=== PATIENT | male | born 1935 | race Caucasian/White ===

== ENCOUNTER 2020-09-03 14:57 | Outpatient (CLI) | payer MEDICARE, SELFPAY ==
--- NOTE | ~2020-09-03 | XR_ITS ---
XR chest 2V DATE: 09/03/2020 15:16 INDICATION: Shortness of breath. History of COPD. TECHNIQUE: PA and lateral views COMPARISON: None FINDINGS: Normal heart size. Is aortic calcification, ectasia and unfolding. No hilar or mediastinal enlargement is evident. The lungs are mildly hyperinflated. There is bilateral apical scarring. No pulmonary infiltrate or co nsolidation, pleural effusion or pulmonary vascular congestion or pneumothorax is evident. Diffuse osteopenia. IMPRESSION: Mild bilateral hyperinflation and bilateral apical scarring No apparent active cardiopulmonary disease Diffuse osteopenia Reviewed, dictated and finalized at location B. [employer]
== END 2020-09-03 14:58 | disposition home or self-care (01) ==
PROVIDERS: PCP Family Medicine; Visit Provider Family Medicine
DX: R06.02 Shortness of breath (principal); R91.8 Other nonspecific abnormal finding of lung field; M85.89 Other specified disorders of bone density and structure, multiple sites
CPT/HCPCS: 71046

== ENCOUNTER 2020-10-25 01:00 | Emergency (ER) | payer MEDICARE, OTHER, SELFPAY ==
--- NOTE | ~2020-10-25 | CT_ITS ---
EXAMINATION: CT abdomen pelvis w con INDICATION: Abdominal pain TECHNIQUE: Computed tomographic images of the abdomen and pelvis were obtained after the administrati on of 100 cc of Omnipaque 350 intravenous contrast. The dose-length product (DLP) was 525.32 mGy-cm. Automated exposure control and iterative reconstruction technique were employed. COMPARISON: None available FINDINGS: Minimal dependent atelectasis is present in the lung bases. The heart size is normal. Punct ate calcifications in an otherwise normal spleen likely represent healed granulomatous disease. The l iver, pancreas, gallbladder, and adrenal glands are normal. The right kidney is unremarkable. There i s moderate left hydroureteronephrosis with urothelial enhancement of the ureter and renal pelvis. A F oley catheter is present in the decompressed bladder. There is diffuse wall thickening of the urinary bladder. A small amount of gas in the nondependent portion of the bladder is likely related to Sr catheter insertion. No pathologically enlarged abdominal or pelvic lymph nodes are identified. There is no free intraperitoneal gas or evidence of bowel obstruction. There is calcified atherosclerosis of the aorta and many of the other arteries. There is severe lumbar spondylosis. IMPRESSION: 1. Wall thickening of the urinary bladder with urothelial enhancement of the ureter and renal pelvis, findings likely reflect urinary tract infection. 2. Moderate left hydroureteronephrosis of unclear etiology. Reviewed, dictated and finalized at location B. IMPRESSION: 1. Wall thickening of the urinary bladder with urothelial enhancement of the ur eter and renal pelvis, findings likely reflect urinary tract infection. 2. Moderate left hydroureteronephrosis of unclear etiology.
[2020-10-25 01:02] VITALS: BP 199/67; PULSE 98; RESP 20; TEMP 37.1; O2SAT 97
--- NOTE | 2020-10-25 01:37 | ED.GENADULT ---
HPI - General Adult General Chief complaint: Urogenital-Male Stated complaint: Hematuria, catheter problems Time Seen by Provider: 10/25/20 01:18 Source: RN notes reviewed History of Present Illness HPI narrative: Patient presents to emergency department from home for hematuria. Patient states he has a indwelling Sr catheter that is managed by Dr. Rome States for the past 2 days he has been having intermittent blood come around his catheter. States that starting yesterday started to have low back pain and this evening he had pain in his left lower back and left lower abdomen described as sharp and stabbing states that the bleeding does improve when he drinks water he denies any fevers or chills chest pain shortness of breath nausea vomiting or any other symptoms Related Data Home Medications Medication Instructions Recorded Confirmed budesonide-formoterol HFA 80 2 puff INHALATION Q12H 06/23/19 10/08/20 mcg-4.5 mcg/actuation aerosol inhaler cyanocobalamin (vitamin B-12) 500 500 mcg PO DAILY 06/23/19 10/08/20 mcg tablet losartan 25 mg tablet 25 mg PO BID 06/23/19 10/08/20 multivitamin 1 tablet PO DAILY 06/23/19 10/08/20 terazosin 10 mg capsule 10 mg PO DAILY 06/23/19 10/08/20 vit C 250 mg-vit E 200 unit-zinc cap PO 09/03/20 10/08/20 ox 12.5 ld-klrahk-pczjbw-zeax capsule Allergies Allergy/AdvReac Type Severity Reaction Status Date / Time No Known Allergies Allergy Unverified 10/08/20 12:58 Review of Systems Review of Systems: Narrative: Gen.: Denies fevers or chills ENT: Denies congestion Respiratory: Denies shortness of breath or cough CV: Denies chest pain or palpitations GI: Reports lower abdominal pain left flank pain see HPI Musculoskeletal: Denies muscle pain Neuro: Denies numbness, tingling, weakness or focal weakness Skin: Denies rash Except as documented, all other systems reviewed and negative [facility] Past Medical History Medical History (Updated 10/25/20 @ 04:08 by Jim Villegas DO) BPH loc w urin obs/LUTS Carotid artery bruit Chronic hypertension COPD (chronic obstructive pulmonary disease) SHARON (generalized anxiety disorder) [place] (hard of hearing) Uses hearing aid Surgical History Surgical History History of cataract surgery Family History Family History Sibling Diabetes mellitus Mother Family history of malignant neoplasm Social History Social History Social History: Smoking status: Never smoker Second hand tobacco smoke exposure: No Alcohol intake: never Substance use: never Substance use type: does not use Gender identity (if verbalized by the patient): Male Exam Narrative: Exam Narrative: APPEARANCE: No acute distress, nontoxic, resting in bed EYES: EOMI HEENT: Normocephalic, atraumatic, OMM RESPIRATORY: No respiratory distress Clear to auscultation bilaterally with no rhonchi wheezing or rales. CARDIOVASCULAR: Regular rate and rhythm without murmurs rubs or gallops. ABDOMINAL: Soft, nondistended tender palpation left lower quadrant right lower quadrant no tenderness left upper quadrant and right upper quadrant, left flank tenderness : Sr catheter present with blood around the Sr catheter at the meatus MUSCULOSKELETAl: Moves all extremities. No clubbing, cyanosis or edema. NEURO: Awake and alert. Following commands, speech normal, no focal deficits SKIN:: Warm, dry. No rashes lesions or abrasions PSYCHIATRIC: Normal affect/mood, Course Course Emergency Course: Called and discussed with Dr. Conroy for urology presentation work-up at this time agrees with plan for discharge with patient to be started on Bactrim follow-up with Dr. Wei severino with outpatient Patient Sr catheter was flushed by nursing staff in ED with no difficulties with clear urine Discussed
[2020-10-25 01:38] LABS: Basophils Percent Auto 0.3 % (0.2-1.2); Eosinophils Absolute Auto 0.1 K/mm3 (0-0.3); Eosinophils Percent Auto 0.7 % (0-4.4); Hematocrit 38.5 % (42.0-52.0); Hemoglobin 12.8 g/dL (14.0-18.0); Immature Granulocyte Absolute 0.08 K/mm3 (0.00-0.031); Immature Granulocyte Percent A 0.6 % (0-0.5); Lymphocytes Absolute Auto 1.31 K/mm3 (0.9-3.2); Lymphocytes Percent Auto 10.5 % (18.3-44.2); Mean Corpuscular HGB Conc 33.2 g/dl (32-36); Mean Corpuscular Hemoglobin 29.4 pg (26-34); Mean Corpuscular Volume 88.5 fl (80-100); Mean Platelet Volume 9.6 fl (7.4-10.4); Monocytes Absolute Auto 0.9 K/mm3 (0.1-0.6); Monocytes Percent Auto 6.9 % (2.6-8.5); Neutrophils Absolute Auto 10.2 K/mm3 (1.3-6.7); Platelet Count Result 190 k/mm3 (150-375); Red Blood Count 4.35 M/mm3 (4.6-6.20); White Blood Count 12.5 K/mm3 (4.5-10.0)
[2020-10-25 01:51] LABS: Alanine Aminotransferase 12 U/L (4-50); Albumin Level 4.2 g/dL (3.5-5.1); Alkaline Phosphatase 105 U/L (38-126); Anion Gap 7 mmol/L (8-16); Aspartate Amino Transferase 17 U/L (17-59); Bilirubin,Total 0.7 mg/dL (0.2-1.3); Blood Urea Nitrogen 16 mg/dL (9-20); Carbon Dioxide 28 mmol/L (22-30); Chloride 99 mmol/L (98-107); Estimated Glomerular Filt Rate > 60; Glucose 111 mg/dL (75-110); Potassium 4.2 mmol/L (3.4-5.0); Sodium 134 mmol/L (137-145)
[2020-10-25 01:59] LABS: Prothrombin Time 13.8 Seconds (11.1-14.7)
[2020-10-25 02:01] LABS: Partial Thromboplastin Time 34.1 SECONDS (22.3-36.8)
[2020-10-25 02:08] LABS: Add Urine Microscopic? YES; Appearance Urine Cloudy (Clear); Bacteria Urine Trace /hpf; Bilirubin Urine Negative (Negative); Blood Urine 3+ (Negative); Color Urine Straw (Yellow); Glucose Urine UA Negative (Negative); Ketones Urine Negative (Negative); Leukocyte Esterase Ur 3+ LEU/UL (Negative); Mucus Urine Rare /lpf; Nitrate Urine Negative (Negative); Protein Urine 2+ mg/dL (Negative); Urobilinogen Urine Negative mg/dL (<2.0); WBC Urine >75 /hpf
[2020-10-25 02:15] LABS: Specific Grav Ur 1.002 (1.001-1.035)
[2020-10-25 03:09] VITALS: BP 165/72; PULSE 82; RESP 16; O2SAT 93
[2020-10-25 03:33] VITALS: BP 160/60; PULSE 83; RESP 16; O2SAT 92
[2020-10-25 03:48] LABS: Lactic Acid Reflex 0.7 mmol/L (0.7-2.1)
--- NOTE | 2020-10-25 04:07 | PC.NURSE ---
When cath was irrigated (earlier in shift), no difficulties. Easily flushed. No clots.
[2020-10-25 04:40] VITALS: BP 164/68; PULSE 80; RESP 16; O2SAT 93
== END 2020-10-25 04:40 | disposition home or self-care (01) ==
PROVIDERS: Emergency Provider Emergency Medicine; PCP Family Medicine
DX: N39.0 Urinary tract infection, site not specified (principal); R31.9 Hematuria, unspecified; N40.1 Benign prostatic hyperplasia with lower urinary tract symptoms; I10 Essential (primary) hypertension; J44.9 Chronic obstructive pulmonary disease, unspecified; Z98.49 Cataract extraction status, unspecified eye; N13.30 Unspecified hydronephrosis
CPT/HCPCS: 36415; 74177; 80053; 81001; 83605; 85025; 85610; 85730; 86850; 86900; 86901; 87040; 87086; 87088; 96365; 99284; J0696; Q9967

== ENCOUNTER 2021-10-21 15:18 | Outpatient (CLI) | payer MEDICARE, OTHER, SELFPAY ==
--- NOTE | ~2021-10-21 | XR_ITS ---
XR chest 2V DATE: 10/21/2021 15:34 INDICATION: Cough. Sinus issues for one week. History of COPD. TECHNIQUE: PA and lateral views COMPARISON: September 03, 2020 PA and lateral chest FINDINGS: Normal heart size. There is aortic calcification, ectasia and unfolding. No hilar or medias tinal enlargement. Bilateral hyperinflation suggesting COPD. The elderly chest can simulate this appearance. Clinical co rrelation is advised. There is mild bilateral apical scarring. No active pulmonary infiltrate or consolidation, pleural eff usion or pulmonary vascular congestion or pneumothorax is detected. Diffuse osteopenia. Degenerative changes of the cervical and thoracic spine. IMPRESSION: No active cardiac pulmonary disease Aortic atherosclerosis Diffuse osteopenia Reviewed, dictated and finalized at location A.
== END 2021-10-21 15:19 | disposition home or self-care (01) ==
LOC: ANHIMG 15:21
PROVIDERS: PCP Family Medicine; Visit Provider Nurse Practitioner Gerontology
DX: R05.9 Cough, unspecified (principal); I70.0 Atherosclerosis of aorta; M47.813 Spondylosis without myelopathy or radiculopathy, cervicothoracic region
CPT/HCPCS: 71046

== ENCOUNTER 2021-10-31 14:17 | Observation (INO) | payer MEDICARE, OTHER, SELFPAY ==
[2021-10-31] VITALS (28 sets, daily range): BP systolic 163–242; BP diastolic 61–93; PULSE 78–108; RESP 15–26; TEMP 36.2–36.8; O2SAT 95–99; BMI 23.1
--- NOTE | ~2021-10-31 | XR_ITS ---
EXAMINATION: XR chest 2V DATE: 10/31/2021 15:54 INDICATION: Palpitations TECHNIQUE: PA and lateral views of the chest were obtained. COMPARISON: Chest radiograph dated 10/21/21 and 09/03/2020 FINDINGS: Chronic biapical pleural-parenchymal scarring. No new airspace opacities, pulmonary edema, pleural ef fusion or pneumothorax. The cardiomediastinal silhouette is normal. Calcified splenic nodule consiste nt with old granulomatous disease. Chronic mild anterior wedging at T8. IMPRESSION: 1. Biapical pleural-parenchymal scarring. No acute cardiopulmonary disease. Reviewed, dictated and finalized at location A.
--- NOTE | 2021-10-31 14:23 | ECG_ITS ---
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
[2021-10-31 15:35] LABS: Basophils Percent Auto 0.3 % (0.2-1.2); Hematocrit 42.9 % (42.0-52.0); Hemoglobin 14.1 g/dL (14.0-18.0); Immature Granulocyte Absolute 0.18 K/mm3 (0.00-0.031); Immature Granulocyte Percent A 1.9 % (0-0.5); Lymphocytes Absolute Auto 0.98 K/mm3 (0.9-3.2); Lymphocytes Percent Auto 10.3 % (18.3-44.2); Mean Corpuscular HGB Conc 32.9 g/dl (32-36); Mean Corpuscular Hemoglobin 29.6 pg (26-34); Mean Corpuscular Volume 89.9 fl (80-100); Mean Platelet Volume 9.8 fl (7.4-10.4); Monocytes Absolute Auto 0.5 K/mm3 (0.1-0.6); Neutrophils Absolute Auto 7.8 K/mm3 (1.3-6.7); Neutrophils Percent Auto 82.5 % (45.5-73.1); Platelet Count Result 186 k/mm3 (150-375); Red Blood Count 4.77 M/mm3 (4.6-6.20); Red Cell Distribution Width 13.2 % (11.5-14.5); White Blood Count 9.5 K/mm3 (4.5-10.0)
[2021-10-31 15:47] LABS: INR 1.1; Prothrombin Time 13.3 Seconds (11.1-14.7)
[2021-10-31 15:48] LABS: Partial Thromboplastin Time 30.2 SECONDS (22.3-36.8)
[2021-10-31 15:50] LABS: Alanine Aminotransferase 15 U/L (4-50); Albumin Level 3.9 g/dL (3.5-5.1); Alkaline Phosphatase 101 U/L (38-126); Anion Gap 5 mmol/L (8-16); Aspartate Amino Transferase 20 U/L (17-59); Bilirubin,Total 0.3 mg/dL (0.2-1.3); Blood Urea Nitrogen 20 mg/dL (9-20); Calcium 8.7 mg/dL (8.4-10.2); Carbon Dioxide 29 mmol/L (22-30); Chloride 101 mmol/L (98-107); Estimated CRCL calculation 72 ml/min; Estimated Glomerular Filt Rate > 60; Glucose 112 mg/dL (65-110); Sodium 135 mmol/L (137-145)
[2021-10-31] MEDS: hydrALAZINE HCL 25 MG TABLET PO ×2 (15:54→21:19)
[2021-10-31 16:00] LABS: NT Pro B Type Natriuretic Pept 574 pg/mL (5-100); Troponin I < 0.012 ng/mL (0.000-0.034)
--- NOTE | 2021-10-31 17:30 | PM.IMHP ---
H&P: HPI History of Present Illness Date/Time: 10/31/21 17:30 Chief Complaint: New onset SVT Narrative: Patient is an 86-year-old male with a past medical history of BPH, hypertension, COPD who presented to the ED from the doctor's office with a heart rate greater than 180. Patient's girlfriend said that the patient's heart rate was high and it did come down to about 178. The physician told the patient come down to the ED and rolled him down here. Patient did state that he had some palpitations however he did not have any chest pain, shortness of breath, nausea, vomiting, sweats, fevers, chills, lightheadedness, dizziness, weakness or fatigue. His girlfriend says that his legs have been a little bit more swollen than normal lately. Blood pressure is high 200s over 100s. It does seem that he is taking his blood pressure medications appropriately. Currently heart rates in the 80s to 90s. Chest x-ray did shows no acute abnormality. Patient is being admitted to the hospitalist service under observation Review of Systems Review of Systems: All systems reviewed & are unremarkable except as noted in HPI and below PMFSH Past Medical History Medical History Allergies Anemia Atonic bladder Benign essential HTN BPH loc w urin obs/LUTS Carotid artery bruit Chronic hypertension COPD (chronic obstructive pulmonary disease) SHARON (generalized anxiety disorder) [place] (hard of hearing) Uses hearing aid Surgical History Surgical History History of cataract surgery Family History Family History Sibling Diabetes mellitus Mother Family history of malignant neoplasm Social History Social History (Updated 10/31/21 @ 19:37 by DUNG Maravilla) Social History: Lives with girlfriend Zahida Kruse who will be his surrogate. They have one cat, and no cats. He is wanting a to be full code at this time. He is very hard of hearing. 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 Gender identity (if verbalized by the patient): Male Sexual Orientation (if Verbalized by the Patient): Straight or Heterosexual Spiritual care concerns: No Agree to blood products: Yes Meds Home Medications and Allergies Home Medications Medication Instructions Recorded Confirmed Type cyanocobalamin (vitamin B-12) 500 500 mcg PO DAILY 06/23/19 10/31/21 History mcg tablet finasteride 5 mg tablet 5 mg PO DAILY 11/05/20 10/31/21 History tamsulosin 0.4 mg capsule 0.4 mg PO DAILY 11/05/20 10/31/21 History hydralazine 25 mg tablet 25 mg PO TID #270 tablet 05/26/21 10/31/21 Rx polysaccharide iron complex 150 mg 150 mg PO DAILY #30 cap 07/06/21 10/31/21 Rx iron capsule losartan 50 mg PO DAILY 10/31/21 10/31/21 History Allergies Allergy/AdvReac Type Severity Reaction Status Date / Time prednisone AdvReac Severe tachycardia Verified 10/31/21 13:53 Vital Signs Vital Signs - 24 hr 10/31/21 14:19 10/31/21 14:56 10/31/21 15:00 Temperature 98.2 F Pulse Rate 108 H 96 92 Respiratory Rate 18 21 H 16 Blood Pressure 242/93 H Pulse Oximetry 98 98 98 10/31/21 15:01 10/31/21 15:22 10/31/21 15:30 Temperature Pulse Rate 94 91 91 Respiratory Rate 18 18 18 Blood Pressure 207/73 H Pulse Oximetry 97 97 10/31/21 15:31 10/31/21 15:45 10/31/21 15:46 Temperature Pulse Rate 90 91 Respiratory Rate 20 19 Blood Pressure 207/77 H 195/86 H Pulse Oximetry 97 98 10/31/21 15:56 10/31/21 16:00 10/31/21 16:01 Temperatu
--- NOTE | 2021-10-31 17:50 | ED.GENADULT ---
HPI - General Adult General Chief complaint: Arrhythmia/Palpitations Stated complaint: tachycardia Time Seen by Provider: 10/31/21 14:57 History of Present Illness HPI narrative: Patient is an 86-year-old male who presents ER from his primary care office. He was found there that his heart rate was in the 170s 180s. He reports some lightheadedness and feeling palpitations so he was sent down here. Patient is very hard of hearing. Upon arrival here his heart rate is tachycardic but in the low 100s. He is denying any chest pain or pressure. No weakness or fatigue. Reports compliance with home medications. Was found that his blood pressure significantly elevated in the 200s. Related Data Home Medications Medication Instructions Recorded Confirmed finasteride 5 mg tablet 5 mg PO DAILY 11/05/20 10/31/21 tamsulosin 0.4 mg capsule 0.4 mg PO HS 11/05/20 10/31/21 cyanocobalamin (vitamin B-12) 1,000 mcg PO DAILY 10/31/21 10/31/21 [Vitamin B-12] losartan 50 mg PO DAILY 10/31/21 10/31/21 omega-3 fatty acids 1,000 mg PO HS 10/31/21 10/31/21 Allergies Allergy/AdvReac Type Severity Reaction Status Date / Time prednisone AdvReac Severe tachycardia Verified 11/02/21 02:17 Review of Systems Review of Systems: All systems reviewed & are unremarkable except as noted in HPI and below Constitutional: Constitutional: Denies chills, Denies fever(s) and Denies weakness Cardiovascular: Cardiovascular: Denies chest pain, Reports rapid heart rate and Denies radiating jaw, neck or arm pain Respiratory: Respiratory: Denies cough, Denies dyspnea and Denies wheezing Gastrointestinal: Gastrointestinal: Denies abdominal pain, Denies nausea and Denies vomiting Neurologic: Reports dizziness, Denies headache(s), Denies focal weakness and Denies numbness PMFSH Past Medical History Medical History Allergies Anemia Atonic bladder Benign essential HTN BPH loc w urin obs/LUTS Carotid artery bruit Chronic hypertension COPD (chronic obstructive pulmonary disease) SHARON (generalized anxiety disorder) [place] (hard of hearing) Uses hearing aid Surgical History Surgical History History of cataract surgery Family History Family History Sibling Diabetes mellitus Lupus Mother Colon cancer metastasized to brain Family history of malignant neoplasm Sibling Diabetes mellitus Scleroderma Sibling Diabetes mellitus Father Leukemia Social History Social History (Updated 10/31/21 @ 19:37 by DUNG Maravilla) Social History: Lives with girlfriend Zahida Kruse who will be his surrogate. They have one cat, and no cats. He is wanting a to be full code at this time. He is very hard of hearing. 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 Gender identity (if verbalized by the patient): Male Sexual Orientation (if Verbalized by the Patient): Straight or Heterosexual Spiritual care concerns: No Agree to blood products: Yes Exam Narrative: GENERAL: Well-appearing, well-nourished, and in no acute distress. HEAD: Normocephalic, atraumatic. EYES: PERRL and EOMI. ENT: Mucous membranes moist. CHEST: Clear to auscultation. No respiratory distress. HEART: Tachycardic regular.. Normal peripheral pulses. ABDOMEN: Soft, nontender, nondistended. EXTREMITIES: Normal range of motion. No edema. SKIN: Warm, dry, no rash. NEURO: Alert and oriented x3. PSYCH: N
[2021-10-31] MEDS: hydrALAZINE HCL 20 MG/ML VIAL 10 MG IV PUSH (19:25)
--- NOTE | 2021-10-31 19:37 | PC.NURSE ---
Attempted to give report to IMU at this time. Receiving RN is busy, will call back when available.
--- NOTE | 2021-10-31 20:08 | ADMGEN ---
This patient, Aric Burch, was admitted to IMU Room 214-01 on 10/31/21 at 2004. Patient/family oriented to hospital policies and general routines including ID bracelet, bed and alarms, visiting hours, pain management, procedures, bathroom and other care routines, personal items, smoking policy, room service/diet, and visiting hours. Information on how to activate the Rapid Response Team has been discussed. Patient/Family are encouraged to report perceived risks to care and to ask questions if they do not understand what they are told or what they should do.
[2021-10-31 20:38] LABS: Basophils Percent Auto 0.3 % (0.2-1.2); Eosinophils Percent Auto 0.3 % (0-4.4); Hematocrit 43.6 % (42.0-52.0); Hemoglobin 14.3 g/dL (14.0-18.0); Immature Granulocyte Absolute 0.21 K/mm3 (0.00-0.031); Immature Granulocyte Percent A 1.8 % (0-0.5); Lymphocytes Absolute Auto 2.16 K/mm3 (0.9-3.2); Lymphocytes Percent Auto 18.3 % (18.3-44.2); Mean Corpuscular HGB Conc 32.8 g/dl (32-36); Mean Corpuscular Volume 88.4 fl (80-100); Mean Platelet Volume 9.8 fl (7.4-10.4); Monocytes Absolute Auto 0.7 K/mm3 (0.1-0.6); Neutrophils Absolute Auto 8.6 K/mm3 (1.3-6.7); Neutrophils Percent Auto 73.3 % (45.5-73.1); Platelet Count Result 200 k/mm3 (150-375); Red Blood Count 4.93 M/mm3 (4.6-6.20); Red Cell Distribution Width 13.3 % (11.5-14.5); White Blood Count 11.8 K/mm3 (4.5-10.0)
[2021-10-31 20:53] LABS: Alanine Aminotransferase 15 U/L (4-50); Alkaline Phosphatase 99 U/L (38-126); Anion Gap 6 mmol/L (8-16); Aspartate Amino Transferase 20 U/L (17-59); Bilirubin,Total 0.7 mg/dL (0.2-1.3); Blood Urea Nitrogen 17 mg/dL (9-20); Calcium 8.8 mg/dL (8.4-10.2); Carbon Dioxide 28 mmol/L (22-30); Chloride 103 mmol/L (98-107); Estimated CRCL calculation 72 ml/min; Estimated Glomerular Filt Rate > 60; Glucose 102 mg/dL (65-110); Magnesium 2.1 mg/dL (1.6-2.3); Potassium 3.5 mmol/L (3.4-5.0); Sodium 137 mmol/L (137-145)
[2021-10-31] MEDS: LOSARTAN POTASSIUM 50 MG TABLET PO (21:19)
[2021-10-31] MEDS: TAMSULOSIN HCL 0.4 MG CAPSULE PO (21:57)
[2021-10-31] MEDS: HYDROcodone/acetaminophen (*CRX) 5-325 MG TABLET 1 TAB PO (22:42)
[2021-11-01] VITALS (9 sets, daily range): BP systolic 158–179; BP diastolic 62–67; PULSE 77–96; RESP 12–18; TEMP 36.4–36.6; O2SAT 95–100
--- NOTE | 2021-11-01 | ECHO_ITS ---
Patient Info Name: Aric Burch Age: 86 years : 1935 Gender: Male Ht: 73 in Wt: 175 lbs BSA: 2.02 m2 HR: 77 bpm BP: 179 / 67 mmHg Heart Rhythm: Sinus Rhythm Technical Quality: Fair Exam Date: 11/01/2021 11:20 AM Exam Location: [facility] Patient Status: Outpatient Admit Date: 10/31/2021 Staff Ordering Physician: Otis Wang Lime Mixer: Tamar Christian RDCS Attending Provider: Rosa Washington MD Referring Physician: Felipe OLSON; Exam Type: CA echo doppler color flow Study Info Indications - SVT Complete two-dimensional, color flow and Doppler transthoracic echocardiogram is performed. Summary 1. Complete two-dimensional, color flow and Doppler transthoracic echocardiogram is performed. 2. Left ventricular chamber dimension is mildly enlarged. 3. Left ventricular systolic function is normal, estimated at 65-70%. 4. There is no increased left ventricular wall thickness. 5. The left ventricular diastolic function is grade I diastolic dysfunction. 6. There is no mitral valve regurgitation. 7. There is no aortic valve stenosis. 8. The aortic root size at the sinus of Valsalva is moderately dilated at 4.3-4.5cm. Consider CT chest if clinically indicated.. 9. The prox ascending aorta size is mildly dilated at 4.0cm. Left Ventricle Left ventricular chamber dimension is mildly enlarged. Left ventricular systolic function is normal, estimated at 65-70%. There is no increased left ventricular wall thickness. The left ventricular diastolic function is grade I diastolic dysfunction. Right Ventricle Right ventricular chamber dimension is normal. Right ventricular systolic function is normal. Left Atria Left atrial chamber dimension is normal. Right Atria Right atrial chamber dimension is normal. Aortic Valve The aortic valve is trileaflet. There is no aortic valve stenosis. There is trace aortic valve regurgitation. Pulmonic Valve The pulmonic valve is not well visualized. Mitral Valve The mitral valve has normal leaflets. There is no mitral valve regurgitation. The mitral valve annulus is mildly calcified. Tricuspid Valve The tricuspid valve leaflets are normal. There is trace tricuspid valve regurgitation. No pulmonary hypertension, estimated pulmonary arterial systolic pressure is 15 mmHg. Pericardium/Pleural The pericardium appears epicardial fat pad. There is trivial pericardial effusion. Inferior Vena Cava Normal inferior vena cava with >50% collapse upon inspiration consistent with normal right atrial pressure, 5 mmHg. Aorta The aortic root size at the sinus of Valsalva is moderately dilated at 4.3-4.5cm. Consider CT chest if clinically indicated.. The prox ascending aorta size is mildly dilated at 4.0cm. There is mild aortic atherosclerosis. Left Ventricular Outflow Tract Name Value Normal LVOT 2D LVOT Diameter 2.1 cm LVOT Doppler LVOT Peak Gradient 13 mmHg LVOT Mean Gradient 6 mmHg LVOT VTI 30 cm LVOT VTI/AV VTI Ratio
[2021-11-01] MEDS: ACETAMINOPHEN 325 MG TABLET 650 MG PO (00:34)
[2021-11-01] MEDS: PHENAZOPYRIDINE HCL 100 MG TABLET 200 MG PO ×3 (02:13→13:26)
[2021-11-01] MEDS: hydrALAZINE HCL 25 MG TABLET PO ×2 (05:57→13:27)
[2021-11-01] MEDS: FINASTERIDE 5 MG TABLET PO (08:44)
[2021-11-01] MEDS: CYANOCOBALAMIN 500 MCG TABLET PO (08:44)
[2021-11-01] MEDS: ENOXAPARIN 40 MG/0.4 ML SYRINGE SUB-Q (08:44)
[2021-11-01] MEDS: POLYSACCHARIDE IRON COMPLEX 150 MG CAPSULE PO (08:45)
[2021-11-01] MEDS: LOSARTAN POTASSIUM 50 MG TABLET PO (08:45)
[2021-11-01] MEDS: amLODIPine BESYLATE 5 MG TABLET 10 MG PO (09:40)
--- NOTE | 2021-11-01 14:00 | PM.DS ---
DS: Admitting Diagnosis Discharge Date 11/01/21 1400 Admitting Diagnosis SVT tachycardia DS: Discharge Diagnosis Discharge Diagnosis (1) Tachycardia: Code(s): R00.0 - Tachycardia, unspecified Status: Acute Assessment and Plan: Heart rate noted to be greater than 170 at the doctor's office EKG shows ST Currently 90-110 Spontaneously resolved Tele monitor Denies symptoms (2) Hypertensive urgency: Code(s): I16.0 - Hypertensive urgency Status: Acute Assessment and Plan: Blood pressure 200/100s Continue home hydralazine, losartan Added some amlodipine Trend blood pressure Hydralazine IV p.r.n. 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 Trend urine output DS: Summary Hospital Course Hospital Course: Patient is an 86-year-old male with a past medical history of BPH, anemia, hypertension, COPD who presented to the ED from the doctor's office with complaints SVT. Patient was noted to have a heart rate greater than 170 which he sustained. Patient presented the ED and heart rate was down in the 90s. EKG was taken and showed the patient was sinus tachycardia in the 100s. Labs drawn in looked normal including a TSH of 2.170. Potassium was also normal limits of 3.5 and magnesium of 2.1. Echocardiogram was done which showed an EF of 65-70% and grade 1 diastolic dysfunction. Patient no complaints to company his tachycardia including chest pain, shortness of breath, dizziness, nausea, sweats. Patient is ready to go and is stable for discharge with vital signs and lab work. At time of discharge, it was noted that the patient had hematuria. Patient stated that he was also having some pain, but the straight caths here are bigger than he is used to. He stated that he feels he might of nicked himself when he straight cathed the last time. Urology was contacted and was instructed to place caba catheter, and have the patient follow up with urology. Appointment was made and given to the patient. It was also stated that the urinary catheter would help to confine the bleed and help with cauterizing the bleeding. This was explained to the patient and he will follow up. Was contacted by the nurse that she placed the caba and right after took his blood pressure which was elevated, however, feel this was mostly due to the trauma of the catheter and the patient has a known anxiety. Instructed the patient to trend his blood pressure and report findings to his PCP. Also ordered a 30 day event monitor, and tried to get the primary care provider a message about referral to a case finisher. However, it was said that the hospital will need to call the number on the back of the card for approval. I tried to re-explain, but once again the they did not understand. Instructed the patient to make an appointment and have them refer him to a case finisher. Status at Discharge Functional status at discharge: independent ambulation Overall status at discharge: patient is progressing back to baseline Time Spent with Patient Time attestation: Total time spent providing and/or coordinating discharge services: 48 minutes Time spent: Greater than 30 minutes Specific discharge activities: Diagnostic testing, chart review, developing a treatment plan, education, care coordination documentation, physical exam, result review Exam Const: General: cooperative, no acute distress, well developed, alert and awake Nutritional Appearance: well nourished Orientation/consciousness: oriented to person, oriented to place, oriented to time and patient oriented x3 Limitations: other limitations (very [place]) HENMT: Head: normal to inspection Ears: hearing grossly normal bilaterally General nose exam: Normal ex
== END 2021-11-01 17:14 | disposition home or self-care (01) ==
LOC: ANHED 15:58 → ANHIMU 19:58
PROVIDERS: Admitting Provider Family Medicine; Emergency Provider Emergency Medicine; PCP Family Medicine; Visit Provider Nurse Practitioner
DX: I47.1 Supraventricular tachycardia (principal); I16.0 Hypertensive urgency; N40.1 Benign prostatic hyperplasia with lower urinary tract symptoms; N31.2 Flaccid neuropathic bladder, not elsewhere classified; N13.9 Obstructive and reflux uropathy, unspecified; I10 Essential (primary) hypertension; D64.9 Anemia, unspecified; H91.90 Unspecified hearing loss, unspecified ear; J44.9 Chronic obstructive pulmonary disease, unspecified; R31.9 Hematuria, unspecified
CPT/HCPCS: 36415; 71046; 80053; 81001; 83735; 83880; 84443; 84484; 85025; 85610; 85730; 87077; 87086; 87088; 87186; 93005; 93306; 96365; 96372; 96374; 99284; 99285; A9270; G0378; J0360; J0696; J1650

== ENCOUNTER 2021-11-01 23:03 | Emergency (ER) | payer MEDICARE, OTHER, SELFPAY ==
[2021-11-01 23:07] VITALS: BP 148/52; PULSE 105; RESP 20; TEMP 36.3; O2SAT 97
[2021-11-01 23:30] LABS: RBC Urine >75 /hpf (0-2); WBC Urine >75 /hpf
[2021-11-01 23:48] LABS: Add Urine Microscopic? YES; Appearance Urine Turbid (Clear); Bilirubin Urine 1+ (Negative); Blood Urine 3+ (Negative); Color Urine Orange (Yellow); Glucose Urine UA Trace mg/dL (Negative); Ketones Urine Trace mg/dL (Negative); Leukocyte Esterase Ur 3+ LEU/UL (Negative); Nitrate Urine Positive (Negative); Protein Urine 3+ mg/dL (Negative)
[2021-11-02 03:07] LABS: Basophils Percent Auto 0.2 % (0.2-1.2); Eosinophils Percent Auto 0.2 % (0-4.4); Hematocrit 41.6 % (42.0-52.0); Hemoglobin 13.5 g/dL (14.0-18.0); Immature Granulocyte Absolute 0.15 K/mm3 (0.00-0.031); Immature Granulocyte Percent A 1.2 % (0-0.5); Lymphocytes Absolute Auto 1.51 K/mm3 (0.9-3.2); Mean Corpuscular HGB Conc 32.5 g/dl (32-36); Mean Corpuscular Hemoglobin 29.7 pg (26-34); Mean Corpuscular Volume 91.4 fl (80-100); Mean Platelet Volume 9.9 fl (7.4-10.4); Monocytes Absolute Auto 0.8 K/mm3 (0.1-0.6); Monocytes Percent Auto 6.6 % (2.6-8.5); Neutrophils Absolute Auto 10.1 K/mm3 (1.3-6.7); Neutrophils Percent Auto 79.8 % (45.5-73.1); Platelet Count Result 204 k/mm3 (150-375); Red Blood Count 4.55 M/mm3 (4.6-6.20); Red Cell Distribution Width 13.8 % (11.5-14.5); White Blood Count 12.6 K/mm3 (4.5-10.0)
--- NOTE | 2021-11-02 03:08 | ED.GENADULT ---
HPI - General Adult General Chief complaint: Urogenital-Male Stated complaint: hematuria Time Seen by Provider: 11/02/21 02:19 Source: patient, family, RN notes reviewed and old records reviewed Limitations: no limitations History of Present Illness HPI narrative: 86-year-old male presented to the emergency department for evaluation of hematuria. Patient had a recent hospitalization for hypertensive urgency. Patient does straight cath as needed. Prior to discharge patient noticed he had some hematuria which was thought to be secondary to an injury while straight cathing. Patient states that he had some worsening hematuria at home so he presented to the emergency department for evaluation. Patient denies any pain at this time. Related Data Home Medications Medication Instructions Recorded Confirmed finasteride 5 mg tablet 5 mg PO DAILY 11/05/20 10/31/21 tamsulosin 0.4 mg capsule 0.4 mg PO HS 11/05/20 10/31/21 cyanocobalamin (vitamin B-12) 1,000 mcg PO DAILY 10/31/21 10/31/21 [Vitamin B-12] losartan 50 mg PO DAILY 10/31/21 10/31/21 omega-3 fatty acids 1,000 mg PO HS 10/31/21 10/31/21 Allergies Allergy/AdvReac Type Severity Reaction Status Date / Time prednisone AdvReac Severe tachycardia Verified 11/02/21 02:17 Review of Systems Review of Systems: CONSTITUTIONAL: Denies fever, chills, or sweats. EYES: Denies visual changes, redness, or discharge. ENT: Denies rhinorrhea, congestion, sore throat, or otalgia. CARDIOVASCULAR: Denies chest pain, palpitations, or edema. RESPIRATORY: Denies cough or dyspnea. GASTROINTESTINAL: Denies abdominal pain, nausea, vomiting, or diarrhea. GENITOURINARY: See HPI SKIN: Denies rash or itching. MUSCULOSKELETAL: Denies back pain, joint pain, or myalgia. NEUROLOGIC: Denies headache, numbness, or weakness. [facility] Past Medical History Medical History Allergies Anemia Atonic bladder Benign essential HTN BPH loc w urin obs/LUTS Carotid artery bruit Chronic hypertension COPD (chronic obstructive pulmonary disease) SHARON (generalized anxiety disorder) [place] (hard of hearing) Uses hearing aid Surgical History Surgical History History of cataract surgery Family History Family History Sibling Diabetes mellitus Lupus Mother Colon cancer metastasized to brain Family history of malignant neoplasm Sibling Diabetes mellitus Scleroderma Sibling Diabetes mellitus Father Leukemia Social History Social History (Updated 10/31/21 @ 19:37 by DUNG Maravilla) Social History: Lives with girlfriend Zahida Kruse who will be his surrogate. They have one cat, and no cats. He is wanting a to be full code at this time. He is very hard of hearing. 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 Gender identity (if verbalized by the patient): Male Sexual Orientation (if Verbalized by the Patient): Straight or Heterosexual Spiritual care concerns: No Agree to blood products: Yes Exam Narrative: APPEARANCE: Well appearing, no pain, no distress, well-nourished. HEAD: normocephalic, atraumatic. EYES: PERRLA/EOMI, conjunctivae clear. NECK: Supple. No adenopathy, no masses. RESPIRATORY: Airway patent, respirations nonlabored. Clear to auscultation bilaterally, no rales, rhonchi, wheezing. CARDIOVASCULAR: Regular rate and rhythm without murmurs rubs or gallops. ABDOMINAL: Soft, nontender, nondistended, nor
[2021-11-02 03:13] LABS: Alanine Aminotransferase 13 U/L (4-50); Albumin Level 3.6 g/dL (3.5-5.1); Alkaline Phosphatase 81 U/L (38-126); Anion Gap 5 mmol/L (8-16); Aspartate Amino Transferase 18 U/L (17-59); Bilirubin,Total 1.3 mg/dL (0.2-1.3); Blood Urea Nitrogen 18 mg/dL (9-20); Calcium 8.3 mg/dL (8.4-10.2); Carbon Dioxide 30 mmol/L (22-30); Chloride 100 mmol/L (98-107); Estimated CRCL calculation 64 ml/min; Estimated Glomerular Filt Rate > 60; Glucose 110 mg/dL (65-110); Potassium 3.3 mmol/L (3.4-5.0); Sodium 135 mmol/L (137-145)
[2021-11-02 04:17] VITALS: BP 131/53; PULSE 78; RESP 14; O2SAT 97
== END 2021-11-02 04:19 | disposition home or self-care (01) ==
PROVIDERS: Emergency Provider Emergency Medicine; PCP Family Medicine
DX: N39.0 Urinary tract infection, site not specified (principal); D64.9 Anemia, unspecified; I10 Essential (primary) hypertension; N40.1 Benign prostatic hyperplasia with lower urinary tract symptoms; N13.8 Other obstructive and reflux uropathy; J44.9 Chronic obstructive pulmonary disease, unspecified; N31.2 Flaccid neuropathic bladder, not elsewhere classified; R01.1 Cardiac murmur, unspecified; Z98.49 Cataract extraction status, unspecified eye; Z87.891 Personal history of nicotine dependence
CPT/HCPCS: 36415; 80053; 81001; 85025; 87077; 87086; 87088; 87186; 96365; 99284; J0696

== ENCOUNTER 2022-11-20 09:54 | Outpatient (CLI) | payer MEDICARE, SELFPAY ==
--- NOTE | ~2022-11-20 | CT_ITS ---
EXAMINATION: CT diagnostic chest w con DATE: 11/20/2022 10:34 INDICATION: ANEURYSM OF ASCENDING AORTA WO RUPTURE TECHNIQUE: Computed tomography (CT) of the chest was performed with 100 mL Omnipaque-350 intravenous contrast. Additional 3D reconstructions utilizing coronal maximum intensity projection (MIP) were per formed. Automated exposure control and iterative reconstruction technique were employed. The dose-thierno gth product was 272.83 mGy-cm. COMPARISON: None FINDINGS: Mild emphysema with moderate biapical pleural-parenchymal scarring. Mild dependent atelectasis in the bilateral lower lobes. No pneumonia, pulmonary edema or pleural effusion. Heart size is normal. Athe rosclerotic coronary artery calcification. No pericardial effusion. Mild fusiform aneurysm of the asc ending thoracic aorta measuring up to 4.6 x 4.3 cm in maximal diameter measured orthogonal to the axi s of flow on the coronal and sagittal images respectively. This tapers to normal caliber at the aorti c arch and descending thoracic aorta. No dissection. Calcified left hilar lymph nodes and multiple sp lenic calcification consistent with old granulomatous disease. Visualized upper abdomen is otherwise unremarkable. Moderate thoracic spondylosis. Chronic appearing mild anterior wedging at T6-T8. IMPRESSION: 1. 4.6 x 4.3 cm fusiform ascending thoracic aortic aneurysm. 2. Mild emphysema. Reviewed, dictated and finalized at location A.
[2022-11-20 10:27] LABS: Estimated Glomerular Filt Rate 48
== END 2022-11-20 09:55 | disposition home or self-care (01) ==
PROVIDERS: PCP Family Medicine; Visit Provider Internal Medicine Cardiovascular Disease
DX: I71.21 Aneurysm of the ascending aorta, without rupture (principal); J43.9 Emphysema, unspecified
CPT/HCPCS: 71260; Q9967

== ENCOUNTER 2023-08-14 09:23 | Outpatient (CLI) | payer MEDICARE, SELFPAY ==
--- NOTE | ~2023-08-14 | CT_ITS ---
EXAMINATION: CTA chest DATE: 08/14/2023 09:58 INDICATION: Ascending aortic aneurysm TECHNIQUE: Computed tomography (CT) of the chest was performed without and subsequently with 100 CC O mnipaque 350 intravenous contrast. Automated exposure control and iterative reconstruction technique were employed. Exam dose: 901.15 mGy-cm total exam DLP. COMPARISON: 11/20/2022 CT chest FINDINGS: Heart size is normal. No pericardial or pleural effusion. The ascending aorta measures up to 4.3 cm diameter. The mid aortic arch measures up to 3.3 cm diamete r. The descending thoracic aorta measures up to approximately 3.2 cm diameter. No hilar or mediastinal mass lesion or lymphadenopathy. Bilateral apical scarring. Mild focal infiltrate, atelectasis or less likely mass lesion in the superior segment of the left low er lobe No pulmonary infiltrate or consolidation or pulmonary mass lesion is noted otherwise. Normal morphology of the adrenal glands. Multiple splenic calcified granulomas. Prominent degenerative disc disease at C5-6 and C6-7. Degenerative changes of the thoracic spine. Mild chronic anterior wedging of several thoracic vertebr al bodies. No suspicious osteolytic or osteoblastic lesions are noted. IMPRESSION: Mild thoracic aortic aneurysm without evidence of dissection Reviewed, dictated and finalized at Location A. Reviewed, dictated and finalized at location L. 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
[2023-08-14 09:49] LABS: Estimated Glomerular Filt Rate 57
== END 2023-08-14 09:24 | disposition home or self-care (01) ==
LOC: ANHIMG 09:30
PROVIDERS: PCP Family Medicine; Visit Provider Nurse Practitioner Adult Health
DX: I71.20 Thoracic aortic aneurysm, without rupture, unspecified (principal); I71.21 Aneurysm of the ascending aorta, without rupture
CPT/HCPCS: 71275; Q9967

== ENCOUNTER 2023-10-03 19:53 | Emergency (ER) | payer MEDICARE, SELFPAY ==
--- NOTE | ~2023-10-03 | XR_ITS ---
EXAMINATION: XR chest 2V DATE: 10/03/2023 20:22 INDICATION: Left-sided chest pain TECHNIQUE: PA and lateral views of the chest are obtained. COMPARISON: 10/31/2021 FINDINGS: There is symmetric scarring of the lung apices. The lungs are free of acute opacities. No p leural effusion or pneumothorax. The cardiomediastinal silhouette is normal. There is mild chronic an terior wedging of midthoracic vertebral bodies. IMPRESSION: 1. No acute cardiopulmonary abnormality. Reviewed, dictated and finalized at location F.
--- NOTE | ~2023-10-03 | CT_ITS ---
EXAMINATION: CTA chest abdomen pelvis DATE: 10/03/2023 22:01 INDICATION: Chest pain radiating to the back TECHNIQUE: Computed tomographic angiography (CTA) of the chest, abdomen, and pelvis was performed wit hout and with 100 mL Omnipque-350 intravenous contrast. Maximum intensity projection 3D-reconstructio ns of the aorta and other arteries were constructed by the technologist on a separate workstation. Th e dose-length product (DLP) was 673.49 mGy-cm. Automated exposure control and iterative reconstructio n technique were employed. COMPARISON: 08/14/2023 FINDINGS: CHEST CTA: There is a stable 4.6 cm fusiform aneurysm of the ascending aorta measured at the level of the main p ulmonary artery. There is no dissection. Calcified coronary artery atherosclerosis is noted. There is mild dependent atelectasis. No pleural effusion or pneumothorax. The heart size is normal. There are no pathologically enlarged thoracic lymph nodes. There are areas of chronic scarring in the upper gokul ng zones. There is severe lower thoracic spondylosis. ABDOMEN AND PELVIS CTA: No aneurysm or dissection of the abdominal aorta. The celiac axis and superior mesenteric artery, and inferior mesenteric artery are normal at their origins. There is calcified atherosclerosis and moder ate stenosis in the proximal superior mesenteric artery. The pancreaticoduodenal artery arises direct ly from the aorta. There are two right and one left renal arteries. There is calcified atherosclerosi s of the pelvic and proximal lower extremity vasculature. Punctate calcifications in an otherwise normal spleen likely represent healed granulomatous disease. The liver, pancreas, and adrenal glands are normal. Stones are present in the nondistended gallbladde r. There is a 1.8 cm cyst of the right kidney lower pole. The left kidney is unremarkable. No patholo gically enlarged abdominal or pelvic lymph nodes are identified. No free intraperitoneal gas or evide nce of bowel obstruction. The appendix is normal. There is severe lumbar spondylosis. IMPRESSION: 1. Stable fusiform aneurysm of the ascending aorta without dissection. 2. No aneurysm or dissection of the abdominal aorta. Reviewed, dictated and finalized at location F.
--- NOTE | 2023-10-03 19:54 | ECG_ITS ---
Measurements Intervals [place] Rate: 86 P: 57 CA: 205 QRS: 56 QRSD: 89 T: 62 QT: 374 QTc: 448 Interpretive Statements SINUS RHYTHM ATRIAL PREMATURE COMPLEX MINIMAL Q WAVES- ANTEROLAT/INF LEADS BASELINE WANDER- I, II, III, AVF, V3 BORDERLINE ECG COMPARED TO ECG 10/31/2021 14:27:56 SINUS RHYTHM NOW PRESENT Electronically Signed On 10-04-2023 6:23:14 CDT by Charly Myers D.O.
[2023-10-03 19:58] VITALS: BP 184/61; PULSE 87; RESP 16; TEMP 36.5; O2SAT 99
[2023-10-03 20:13] LABS: Basophils Percent Auto 0.3 % (0.2-1.2); Eosinophils Percent Auto 0.4 % (0-4.4); Hematocrit 37.5 % (42.0-52.0); Hemoglobin 12.2 g/dL (14.0-18.0); Immature Granulocyte Absolute 0.05 K/mm3 (0.00-0.031); Immature Granulocyte Percent A 0.6 % (0-0.5); Lymphocytes Absolute Auto 1.06 K/mm3 (0.9-3.2); Lymphocytes Percent Auto 11.8 % (18.3-44.2); Mean Corpuscular HGB Conc 32.5 g/dl (32-36); Mean Corpuscular Hemoglobin 29.1 pg (26-34); Mean Corpuscular Volume 89.5 fl (80-100); Mean Platelet Volume 9.3 fl (7.4-10.4); Monocytes Absolute Auto 0.6 K/mm3 (0.1-0.6); Monocytes Percent Auto 6.5 % (2.6-8.5); Neutrophils Absolute Auto 7.2 K/mm3 (1.3-6.7); Neutrophils Percent Auto 80.4 % (45.5-73.1); Platelet Count Result 170 k/mm3 (150-375); Red Blood Count 4.19 M/mm3 (4.6-6.20)
[2023-10-03 20:24] LABS: Prothrombin Time 13.6 Seconds (11.1-14.7)
[2023-10-03 20:26] LABS: Partial Thromboplastin Time 36.4 Seconds (22.3-36.8)
[2023-10-03 20:28] VITALS: BP 154/59; PULSE 75; RESP 15; O2SAT 98
[2023-10-03 20:29] LABS: Alanine Aminotransferase 16 U/L (6-50); Albumin Level 4.3 g/dL (3.5-5.1); Alkaline Phosphatase 115 U/L (38-126); Anion Gap 11 mmol/L (8-16); Aspartate Amino Transferase 21 U/L (17-59); Bilirubin,Total 0.7 mg/dL (0.2-1.3); Blood Urea Nitrogen 26 mg/dL (9-20); Calcium 9.5 mg/dL (8.4-10.2); Carbon Dioxide 25 mmol/L (22-30); Chloride 101 mmol/L (98-107); Estimated CRCL calculation 47 ml/min; Estimated Glomerular Filt Rate > 60; Glucose 134 mg/dL (65-110); Lipase 181 U/L (23-300); Potassium 3.8 mmol/L (3.4-5.0); Sodium 137 mmol/L (137-145)
[2023-10-03 20:40] LABS: Troponin I < 0.012 ng/mL (0.000-0.034)
--- NOTE | 2023-10-03 20:50 | ED.GENADULT ---
"HPI - General Adult General Chief complaint: Chest Pain Stated complaint: chest pain Time Seen by Provider: 10/03/23 20:18 History of Present Illness HPI narrative: 87-year-old male history of aortic aneurysm, hypertension, COPD anxiety presenting for chest pain. Chest pain started 1:00 p.m. while he was having lunch. It is a pressure in center left side of his chest radiates to his back. It comes and goes in intensity. He has never had pain like this in past. Improves when sits up. No exacerbating factors. Patient is associated with belching. No vomiting diaphoresis or exertional. Patient denies fevers chills, shortness of breath, abdominal pain or lower extremity edema Related Data Home Medications Medication Instructions Recorded Confirmed cyanocobalamin (vitamin B-12) 1,000 mcg PO DAILY 10/31/21 08/14/23 1,000 mcg tablet (Vitamin B-12) omega-3 fatty acids 1,000 mg PO HS 10/31/21 08/14/23 diltiazem HCl 120 mg 120 mg PO DAILY 04/14/22 08/14/23 capsule,extended release 24 hr vit C 250 mg-vit E 90 mg-zinc 40 1 tablet PO BID 02/12/23 08/14/23 mg-copper 1 if-hkefuw-ptqntz capsule (PreserVision AREDS-2) atorvastatin 20 mg tablet 20 mg PO DAILY 02/13/23 08/14/23 Allergies Allergy/AdvReac Type Severity Reaction Status Date / Time prednisone AdvReac Severe tachycardia Verified 08/14/23 12:57 [facility] Past Medical History Medical History Allergies Anemia Atonic bladder BPH loc w urin obs/LUTS Carotid artery bruit Chronic hypertension COPD (chronic obstructive pulmonary disease) SHARON (generalized anxiety disorder) [place] (hard of hearing) Uses hearing aid Surgical History Surgical History History of cataract surgery Family History Family History Sibling Diabetes mellitus Lupus Mother Colon cancer metastasized to brain Family history of malignant neoplasm Sibling Diabetes mellitus Scleroderma Sibling Diabetes mellitus Father Leukemia Social History Social History Social History: Lives with girlfriend Zahida Kruse who will be his surrogate. They have one cat, and no cats. He is wanting a to be full code at this time. He is very hard of hearing. Smoking packs per day: 1 Smoking cigarettes per day: 20.0 Years smoked: 31 Smoking pack-years: 31.00 Smoking status: Former smoker Tobacco type: cigarettes Second hand tobacco smoke exposure: No Alcohol intake: never Substance use: never Substance use type: does not use Lack of Transportation: No Lack of Food: Never True Current Housing: I Have Housing Concerned About Future Housing: No Difficulty Paying Gas/Electric Bills: No Difficulty Paying for Meds: No Currently Unemployed: YES Education: Don't Know Difficulty w/ Childcare or Family Care: No Living arrangements: with family Occupation/Education: retired Additional occupation/education comments: 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 Gender identity (if verbalized by the patient): Male Sexual Orientation (if Verbalized by the Patient): Straight or Heterosexual Spiritual care concerns: No Agree to blood products: Yes Exam Narrative: APPEARANCE: No apparent distress. Head: atraumatic. EYES: EOMI, NOSE: Atraumatic NECK: Trachea midline RESPIRATORY: No increased rate of breathing CTAB CARDIOVASCULAR: RRR no peripheral edema, equal pulses 4/4 extremities ABDOMINAL: Non-distended,Soft non-tender MUSCULOSKELETAl: No obvious deformities NEURO: Alert. Moving 4/4 extremities SKIN:: Warm, dry. Normal color PSYCHIATRIC: Normal affect Course Vital Signs Vital signs: Vital Signs Temperature 97.7 F 10/03/23 19:58 Pulse Rate 87 0"
[2023-10-03] MEDS: MAG HYDROX/AL HYDROX/SIMETH 30 ML UDC PO (21:07)
[2023-10-03 22:53] VITALS: BP 130/55; PULSE 72; RESP 15; O2SAT 98
--- NOTE | 2023-10-03 22:53 | ECG_ITS ---
Measurements Intervals [place] Rate: 72 P: 39 WI: 215 QRS: 48 QRSD: 89 T: 57 QT: 414 QTc: 454 Interpretive Statements SINUS RHYTHM WITH FIRST DEGREE AV BLOCK ATRIAL PREMATURE COMPLEXES BASELINE ARTIFACT- I, II, AVR BORDERLINE ECG COMPARED TO ECG 10/03/2023 19:58:33 FIRST DEGREE AV BLOCK NOW PRESENT Electronically Signed On 10-04-2023 6:27:42 CDT by Charly Myers D.O.
[2023-10-03 23:32] LABS: Troponin I < 0.012 ng/mL (0.000-0.034)
[2023-10-04 00:12] VITALS: BP 130/55; PULSE 86; RESP 15; O2SAT 98
== END 2023-10-04 00:15 | disposition home or self-care (01) ==
PROVIDERS: Emergency Provider Emergency Medicine; PCP Family Medicine
DX: R07.9 Chest pain, unspecified (principal); N40.1 Benign prostatic hyperplasia with lower urinary tract symptoms; N13.8 Other obstructive and reflux uropathy; I10 Essential (primary) hypertension; J44.9 Chronic obstructive pulmonary disease, unspecified; D64.9 Anemia, unspecified; Z98.49 Cataract extraction status, unspecified eye; Z87.891 Personal history of nicotine dependence; I49.1 Atrial premature depolarization; I44.0 Atrioventricular block, first degree
CPT/HCPCS: 36415; 71046; 71275; 74174; 80053; 83690; 84484; 85025; 85610; 85730; 93005; 99284; A9270; Q9967

== ENCOUNTER 2023-12-11 15:03 | Inpatient (IN) | payer MEDICARE, SELFPAY ==
[2023-12-11] VITALS (12 sets, daily range): BP systolic 107–155; BP diastolic 55–70; PULSE 98–134; RESP 16–25; TEMP 36.4–37.3; O2SAT 97–99; BMI 21.7
--- NOTE | ~2023-12-11 | US_ITS ---
EXAMINATION: US venous doppler LE RT DATE: 12/11/2023 16:06 INDICATION: leg swelling . TECHNIQUE: Grayscale images without and with compression and Doppler images of the right lower extrem ity veins were obtained. COMPARISON: None FINDINGS: The right common femoral vein, profunda (deep) femoral vein, femoral vein, popliteal vein, peroneal v ein, posterior tibial veins, and greater saphenous vein are patent. IMPRESSION: Patent right lower extremity veins. No evidence of deep venous thrombosis. Reviewed, dictated and finalized at location K.
--- NOTE | ~2023-12-11 | CT_ITS ---
EXAMINATION: CTA chest PE protocol DATE: 12/11/2023 16:26 INDICATION: dyspnea, new onset afib TECHNIQUE: Computed tomography angiography (CTA) of the chest was performed with 100 mL Omnipaque-350 intravenous contrast timed to evaluate the pulmonary arteries. Coronal maximum intensity projection 3D-reconstructions were created by the technologist. The dose-length product (DLP) was 378.31 mGy-cm. Automated exposure control and iterative reconstruction technique were employed. COMPARISON: CTA chest abdomen pelvis 10/03/2023. FINDINGS: Lung parenchyma and airways: Moderate motion artifact. Biapical pleural scarring. Emphysematous/senes cent change. Dependent scar/atelectasis. Patent airways. Pleura: Unremarkable. Thoracic inlet, axillae and chest wall: Unremarkable. Thoracic aorta: Stable thoracic aortic ectasia. Mild atherosclerotic calcifications Mediastinum: Normal. Heart and pericardium: Normal. Coronary artery calcifications: Moderate. Upper abdomen: No significant finding. Bones: No acute osseous finding. Pulmonary arteries: Study quality: Moderate motion artifact. Limited visualization of the segmental a nd subsegmental pulmonary arteries. No pulmonary emboli detected. IMPRESSION: Moderate motion artifact which limits evaluation of the segmental and subsegmental pulmonary arteries . No CT evidence of acute central, main, or interlobar pulmonary artery embolus. No acute process detected in the chest. Reviewed, dictated and finalized at location K. IMPRESSION: Moderate motion artifact which limits evaluation of the segmental and subsegmen angelo pulmonary arteries. No CT evidence of acute central, main, or interlobar pu lmonary artery embolus. No acute process detected in the chest.
--- NOTE | ~2023-12-11 | XR_ITS ---
XR chest 2V 12/11/2023 16:28 Indication: Weakness and shortness of breath Procedure: 2 view chest Comparison: Comparison to multiple prior studies sequentially, with oldest reviewed study dated 09/03. Findings: There is chronic left apical scarring. Heart size normal. No focal air space disease, pulmo nary edema, pleural effusion or suspected pneumothorax. Impression: 1: No acute cardiopulmonary disease. Reviewed, dictated and finalized at location B. Impression: 1: No acute cardiopulmonary disease.
--- NOTE | ~2023-12-11 | US_ITS ---
Renal-Bladder ultrasound Clinical History: Acute kidney injury Technique: Real-time sonographic imaging of the kidneys and urinary bladder was performed. Findings: The right kidney measures 12.5 cm in length and the left kidney measures 10.8 cm. There is no hydronephrosis or renal calculus identified. Renal cortical echogenicity is within normal limits. No renal mass lesion is identified. The urinary bladder is moderately distended at the time of this exam. No intraluminal echoes are iden tified. No abnormal wall thickening is seen. Prostate gland enlarged. Impression: Unremarkable ultrasound of the kidneys and urinary bladder. Enlarged prostate gland. Reviewed, dictated and finalized at location . Impression: Unremarkable ultrasound of the kidneys and urinary bladder. Enlarged prostate gland.
--- NOTE | 2023-12-11 15:07 | ECG_ITS ---
SEE SCANNED COPY FOR CONFIRMED REPORT MTDD
--- NOTE | 2023-12-11 15:26 | ECG_ITS ---
SEE SCANNED COPY FOR CONFIRMED REPORT MTDD
[2023-12-11 15:36] LABS: Basophils Percent Auto 0.5 % (0.2-1.2); Eosinophils Percent Auto 0.3 % (0-4.4); Hemoglobin 8.7 g/dL (14.0-18.0); Immature Granulocyte Absolute 0.08 K/mm3 (0.00-0.031); Immature Granulocyte Percent A 0.9 % (0-0.5); Lymphocytes Absolute Auto 0.61 K/mm3 (0.9-3.2); Lymphocytes Percent Auto 6.9 % (18.3-44.2); Mean Corpuscular HGB Conc 31.1 g/dl (32-36); Mean Corpuscular Hemoglobin 27.5 pg (26-34); Mean Corpuscular Volume 88.6 fl (80-100); Mean Platelet Volume 9.1 fl (7.4-10.4); Monocytes Absolute Auto 0.5 K/mm3 (0.1-0.6); Monocytes Percent Auto 5.2 % (2.6-8.5); Neutrophils Absolute Auto 7.6 K/mm3 (1.3-6.7); Neutrophils Percent Auto 86.2 % (45.5-73.1); Platelet Count Result 243 k/mm3 (150-375); Red Blood Count 3.16 M/mm3 (4.6-6.20); Red Cell Distribution Width 13.5 % (11.5-14.5); White Blood Count 8.8 K/mm3 (4.5-10.0)
[2023-12-11] MEDS: dilTIAZem HCl INJ 25 MG/5 ML VIAL 10 MG IV PUSH (15:39)
[2023-12-11 15:48] LABS: Alanine Aminotransferase 24 U/L (6-50); Albumin Level 3.5 g/dL (3.5-5.1); Alkaline Phosphatase 84 U/L (38-126); Anion Gap 9 mmol/L (4-12); Aspartate Amino Transferase 21 U/L (17-59); Bilirubin,Total 0.5 mg/dL (0.2-1.3); Blood Urea Nitrogen 43 mg/dL (9-20); Carbon Dioxide 24 mmol/L (22-30); Chloride 102 mmol/L (98-107); Estimated CRCL calculation 33 ml/min; Estimated Glomerular Filt Rate 44; Glucose 125 mg/dL (65-110); Potassium 4.2 mmol/L (3.4-5.0); Sodium 135 mmol/L (137-145)
[2023-12-11] MEDS: dilTIAZem 100 MG/100 ML 100 MG/100 ML BAG IV CONT (16:05)
--- NOTE | 2023-12-11 16:05 | PC.NURSE ---
DilTIAZem rate 5mg/hr confirmed by Mike Farris RN
--- NOTE | 2023-12-11 16:10 | PC.NURSE ---
Pt to CT via stretcher at this time. Pt on tele and O2 monitor
--- NOTE | 2023-12-11 16:21 | ED.GENADULT ---
HPI - General Adult General Chief complaint: Weakness <Kilo Hinkle PA-C - Last Filed: 12/11/23 18:13> Stated complaint: SOB, weakness <Kilo Hinkle PA-C - Last Filed: 12/11/23 18:13> Time Seen by Provider: 12/11/23 15:26 <Kilo Hinkle PA-C - Last Filed: 12/11/23 18:13> Source: patient <Kilo Hinkle PA-C - Last Filed: 12/11/23 18:13> Mode of arrival: ambulatory <Kilo Hinkle PA-C - Last Filed: 12/11/23 18:13> Limitations: no limitations <Kilo Hinkle PA-C - Last Filed: 12/11/23 18:13> History of Present Illness HPI narrative: This is an 88-year-old male with PMH of ascending aortic aneurysm, HTN, COPD who presents to the ED from primary care office today for likely new onset AFib with RVR. Patient reports he was being seen for generalized weakness and short of breath on exertion for the past couple of weeks. Patient reports it is difficult to get across the room without becoming winded. Also reports to PCP that he was having chest tightness denies any chest pain to me. Endorses right lower leg swelling that is chronic in nature but maybe a little worse today. Denies any recent illness. Denies fevers, chills, abdominal pain, back pain, shortness of breath, headache, syncope, nausea, vomiting. <Kilo Hinkle PA-C - Last Filed: 12/11/23 18:13> Related Data Home medications: Home Medications Medication Instructions Recorded Confirmed cyanocobalamin (vitamin B-12) 1,000 mcg PO DAILY 10/31/21 12/11/23 1,000 mcg tablet (Vitamin B-12) omega-3 fatty acids 1,000 mg PO HS 10/31/21 12/11/23 vit C 250 mg-vit E 90 mg-zinc 40 1 tablet PO BID 02/12/23 12/11/23 mg-copper 1 cw-evgodm-coxphb capsule (PreserVision AREDS-2) atorvastatin 20 mg tablet 20 mg PO DAILY 02/13/23 12/11/23 <Kilo Hinkle PA-C - Last Filed: 12/11/23 18:13> Allergies/adverse reactions: Allergies Allergy/AdvReac Type Severity Reaction Status Date / Time prednisone AdvReac Severe tachycardia Verified 12/11/23 14:13 <Kilo Hinkle PA-C - Last Filed: 12/11/23 18:13> Review of Systems Review of Systems: All systems as dictated in HPI <Kilo Hinkle PA-C - Last Filed: 12/11/23 18:13> [facility] Past Medical History Medical History: Medical History Allergies Anemia Atonic bladder BPH loc w urin obs/LUTS Carotid artery bruit Chronic hypertension COPD (chronic obstructive pulmonary disease) Elevated glucose Sr catheter in place SHARON (generalized anxiety disorder) [place] (hard of hearing) Lightheadedness Uses hearing aid <OSCAR Guzman Last Filed: 12/11/23 18:13> Surgical History Surgical History: Surgical History History of cataract surgery <OSCAR Guzman Last Filed: 12/11/23 18:13> Family History Family History: Family History Sibling Diabetes mellitus Lupus Mother Colon cancer metastasized to brain Family history of malignant neoplasm Sibling Diabetes mellitus Scleroderma Sibling Diabetes mellitus Father Leukemia <Kilo Hinkle PA-C - Last Filed: 12/11/23 18:13> Social History Social History: Social History Social History: Lives with girlfriend Zahida Kruse who will be his surrogate. They have one cat, and no cats. He is wanting a to be full code at this time. He is very hard of hearing. Smoking packs per day: 1 Smoking cigarettes per day: 20.0 Years smoked: 30 Smoking pack-years: 30.00 Smoking status: Former smoker Tobacco type: cigarettes Second hand tobacco smoke exposure: No Alcohol intake: former Substance use: never Substance use type: does not use Do You Feel Safe in your Home?: Yes Lack of Transportation: No Lack of Food: Never True Current Housing: I Have Ward
[2023-12-11 16:22] LABS: NT Pro B Type Natriuretic Pept 5290 pg/mL (19.9-100); Troponin I 0.035 ng/mL (0.000-0.034)
[2023-12-11 16:54] LABS: Alveolar/Arterial O2 Gradient 34.3 mmHg; Base Excess ABG 1.5 mEq/l (+/-2.0); Fractional Inspired Oxygen 21 %; HCO3 ABG 24.3 mEq/l (22.0-26.0); Oxygen Content ABG 11.8 %vol (16.0-22.0); Oxygen Saturation ABG 96.6 % (95.0-100.0); Oxyhemoglobin 95.4 % THb (90.0-100.0); PCO2 ABG 31.4 mmHg (35.0-45.0); PO2 ABG 77.8 mmHg (80.0-100.0); Total Hemoglobin 8.7 g/dL (12.0-18.0)
[2023-12-11 17:00] LABS: Device ROOM AIR; Modified Allen's Test Pass; Site Drawn RIGHT RADIAL; pH ABG 7.507 (7.350-7.450)
[2023-12-11 17:46] LABS: Appearance Urine Clear (Clear); Bacteria Urine 4+ /hpf; Bilirubin Urine Negative (Negative); Blood Urine Negative (Negative); Color Urine Yellow (Yellow); Glucose Urine UA Negative (Negative); Ketones Urine Negative (Negative); Leukocyte Esterase Ur 2+ LEU/UL (Negative); Nitrate Urine Positive (Negative); Protein Urine Negative (Negative); Specific Grav Ur 1.026 (1.001-1.035); Squamous Epithelial Cell Urine None Seen /hpf (Few); WBC Urine 21-50 /hpf (0-3); pH Urine 5.5 (5.0-9.0)
[2023-12-11 17:59] LABS: Add Urine Microscopic? YES
--- NOTE | 2023-12-11 18:18 | ECG_ITS ---
SEE SCANNED COPY FOR CONFIRMED REPORT MTDD
[2023-12-11 18:30] LABS: Iron 15 ug/dL (49-181)
[2023-12-11 18:40] LABS: Percent Iron Saturation 9 % (20-50)
--- NOTE | 2023-12-11 18:58 | ADMGEN ---
This patient, Aric Burch, was admitted to IMU Room 206-02. Patient/family oriented to hospital policies and general routines including ID bracelet, bed and alarms, visiting hours, pain management, procedures, bathroom and other care routines, personal items, smoking policy, room service/diet, and visiting hours. Information on how to activate the Rapid Response Team has been discussed. Patient/Family are encouraged to report perceived risks to care and to ask questions if they do not understand what they are told or what they should do.
[2023-12-11 19:01] LABS: Troponin I 0.033 ng/mL (0.000-0.034)
--- NOTE | 2023-12-11 19:24 | PM.IMHP ---
H&P: HPI History of Present Illness Date/Time: 12/11/23 19:00 Chief Complaint: Rapid atrial fibrillation. Narrative: This is a very pleasant 88-year-old male with chronic obstructive pulmonary disease, hypertension, hyperlipidemia, benign prostatic hyperplasia, iron deficiency anemia, anxiety, and neurogenic bladder who presented to the emergency department from his primary care provider's after he was found to be in rapid atrial fibrillation. The patient provides the following history. He had appointment with his doctor today for evaluation weakness and dyspnea with exertion for the last couple of weeks. He is getting winded when walking across the room which is unusual for him. At times he has mid chest tightness which seems to be related to when he is particularly short of breath; he has not had exertional chest pain per se. He has noticed some swelling in his legs and more recently he has hands which is a new symptom for him. He has a chronic cough due to COPD and that is unchanged and inhalers have been of no benefit. He also mentions migratory joint pain over the past couple of months which occasionally affects the knees, elbows, shoulders, back, and hands. He has been taking Tylenol Arthritis without much benefit. More recently he has developed increasing swelling, pain, redness, and warmth in the dorsum of the left hand. He has not had any trauma, bites, or wounds to that hand. In any event, he was found to be in rapid atrial fibrillation on arrival to with doctor's office and he was directed to the ED. He denies syncope, near syncope, palpitations, abdominal pain, nausea, vomiting, diarrhea, rash, and calf pain. In the ED: He was in rapid atrial fibrillation with rates as high as the 130s. Blood pressures have been stable. Labs were significant for a WBC count of 8.8, hemoglobin 8.7, hematocrit 20.0%, platelet 243, sodium 135, BUN 43, creatinine 1.50, glucose 125, proBNP 5290. Urine was positive for nitrates, 2+ leukocyte esterase, 4+ bacteria, 3 to 5 RBC, 21 to 50 WBC. Chest CTA was negative for central pulmonary embolism but exam was limited due to motion artifact. Right lower extremity venous Doppler ultrasound was negative for DVT. He was given a bolus of IV diltiazem with improvement in his rate and was started on a diltiazem drip. He was also given a g of ceftriaxone due to the abnormal urinalysis. He is being admitted in this setting for further treatment and evaluation. Review of Systems Review of Systems: 12 systems were reviewed and are negative except for as per HPI. [facility] Past Medical History Medical History (Updated 12/11/23 @ 22:23 by Jessica Clay PA-C) Allergies Anemia Anxiety Benign prostatic hyperplasia Carotid artery bruit Chronic obstructive pulmonary disease Hypertension Iron deficiency anemia Mesenteric artery stenosis Neurogenic bladder Surgical History Surgical History History of cataract surgery Family History Family History Sibling Diabetes mellitus Lupus Mother Colon cancer metastasized to brain Family history of malignant neoplasm Sibling Diabetes mellitus Scleroderma Sibling Diabetes mellitus Father Leukemia Social History Social History (Updated 12/11/23 @ 22:14 by Jessica Clay PA-C) Social History: Healthcare power of insurance defense attorney: Zahida Kruse, significant other. Code status: Full code. Smoking packs per day: 1 Smoking cigarettes per day: 20.0 Years smoked: 31 Smoking pack-years: 31.00 Smoking status: Former smoker Tobacco type: cigarettes Second hand tobacco smoke exposure: No Alcohol intake: never Substance use: never Substance use type: does not use Do You Feel Safe in your Home?: Yes Lack of Transportation: No Lack of Food: Never True Current Housing: I Have Housing Concerned About Future Housing: No
[2023-12-11 19:37] LABS: Folic Acid 17.8 ng/mL (2.76->20)
[2023-12-11] MEDS: ACETAMINOPHEN 325 MG TABLET 650 MG PO (22:36)
[2023-12-11 23:02] LABS: Hematocrit 26.6 % (42.0-52.0); Hemoglobin 8.4 g/dL (14.0-18.0)
[2023-12-11 23:16] LABS: Rheumatoid Factor 13.1 IU/ML (<12)
--- NOTE | 2023-12-11 23:23 | PC.NURSE ---
RADHA Lopez notified of hematuria that has been worsening throughout the shift. Caba still draining will with over 3L dark red output so far. Advised to clamp caba until midnight and was clamped at 2320.
[2023-12-11 23:25] LABS: Troponin I 0.033 ng/mL (0.000-0.034); Uric Acid 7.5 mg/dL (3.5-8.5)
[2023-12-11 23:28] LABS: Creatine Kinase 39 U/L (55-170)
[2023-12-11 23:46] LABS: CRP 12.9 mg/dL (<1.0)
[2023-12-12] VITALS (18 sets, daily range): BP systolic 114–156; BP diastolic 46–70; PULSE 87–130; RESP 14–24; TEMP 36.1–36.6; O2SAT 94–100; BMI 21.6
[2023-12-12 04:27] LABS: Hematocrit 25.2 % (42.0-52.0); Hemoglobin 7.8 g/dL (14.0-18.0); Mean Corpuscular Hemoglobin 27.8 pg (26-34); Mean Corpuscular Volume 89.7 fl (80-100); Mean Platelet Volume 9.7 fl (7.4-10.4); Platelet Count Result 228 k/mm3 (150-375); Red Blood Count 2.81 M/mm3 (4.6-6.20); Red Cell Distribution Width 13.5 % (11.5-14.5); White Blood Count 6.8 K/mm3 (4.5-10.0)
[2023-12-12 04:45] LABS: Anion Gap 5 mmol/L (4-12); Blood Urea Nitrogen 33 mg/dL (9-20); Calcium 8.9 mg/dL (8.4-10.2); Carbon Dioxide 27 mmol/L (22-30); Chloride 103 mmol/L (98-107); Estimated CRCL calculation 39 ml/min; Estimated Glomerular Filt Rate 57; Glucose 104 mg/dL (65-110); Potassium 4.3 mmol/L (3.4-5.0); Sodium 135 mmol/L (137-145)
[2023-12-12] MEDS: dilTIAZem 100 MG/100 ML 100 MG/100 ML BAG IV CONT (08:30)
[2023-12-12] MEDS: FINASTERIDE 5 MG TABLET PO (09:49)
[2023-12-12] MEDS: hydrALAZINE HCL 50 MG TABLET PO ×2 (09:49→17:14)
[2023-12-12] MEDS: AZELASTINE HCL NASAL 0.1% 137 MCG/SPR 30 ML BTL 1 SPRAY NASAL ×2 (09:49→20:25)
[2023-12-12] MEDS: ATORVASTATIN 20 MG TABLET PO (09:49)
[2023-12-12] MEDS: CYANOCOBALAMIN 1,000 MCG TABLET 1000 MCG PO (09:49)
[2023-12-12] MEDS: OPTI-GEN TAB 1 TABLET PO ×2 (09:49→17:15)
[2023-12-12] MEDS: POLYSACCHARIDE IRON COMPLEX 150 MG CAPSULE BY MOUTH (09:50)
--- NOTE | 2023-12-12 10:43 | PM.CNCAR ---
Assessment and Plan Assessment and plan (1) SVT (supraventricular tachycardia): Code(s): I47.1 - Supraventricular tachycardia Status: Acute Assessment and Plan: He has a history of SVT. (2) Hypertension: Code(s): I10 - Essential (primary) hypertension Status: Acute Assessment and Plan: Above goal (3) Elevated troponin: Code(s): R79.89 - Other specified abnormal findings of blood chemistry Status: Acute Assessment and Plan: Not related to ACS. Likely from mild demand ischemia from AFib with RVR in the setting of significant anemia (4) Acute on chronic anemia: Code(s): D64.9 - Anemia, unspecified Status: Acute Assessment and Plan: Significant and worsening recently. Recommend GI evaluation and further workup per hospitalist (5) Atrial fibrillation: Code(s): I48.91 - Unspecified atrial fibrillation Status: Acute Assessment and Plan: New onset that I am aware of. Will start him on metoprolol tartrate 50 mg p.o. b.i.d.. Will DC is diltiazem drip. He has a significantly elevated chads Vasc score and anticoagulation is otherwise warranted however his anemia is problematic in given the fact his anemia has been worsening more recently, will hold off on anticoagulation at this point until clear source is identified. If no source is identified, consider left atrial appendage occluder device. 2D echocardiogram with Doppler is ordered and will be reviewed. Further workup and recommendation depending on response to treatment and results of testing History of Present Illness History of Present Illness Consult date/time: 12/12/23 10:43 Requesting physician: Jessica Clay PA-C Consult reason: atrial fibrillation Reason For Visit: New Onset Afib RVR/Anemia Narrative: Date of service: 12/12/2023 Reason for consultation: Elevated troponin, atrial fibrillation Requesting provider: Jessica Clay History: Patient is an 88-year-old male who has a history of hypertension, COPD, hyperlipidemia, anemia, neurogenic bladder who formally followed with Dr. taveras. He thinks he has a history of atrial fibrillation. He also has a known aneurysm which has been followed. He presented to the hospital following a visit to his primary care's office. At his PCPs office he was found to be in atrial fibrillation with rapid ventricular response. Went to the emergency department and was later admitted. He states that he has been feeling weak, jittery and short of breath with mild activity over the past 1-2 weeks. He has had some lower extremity swelling which is unusual for him. No chest pain, syncope, presyncope, paroxysmal nocturnal dyspnea or orthopnea. He has been started on diltiazem drip and his heart rate is marginally controlled. The a complicating factor is that he also has significant anemia with a several gram hemoglobin drop over the past couple of months. Workup is in progress. Review of Systems Review of Systems: All systems reviewed & are unremarkable except as noted in HPI and below Constitutional: Constitutional: Denies body ache(s) Eyes: Eyes: Denies blurry vision ENT: Denies Normal hearing present Cardiovascular: Cardiovascular: Denies chest pain and Reports leg edema Respiratory: Respiratory: Reports dyspnea on exertion Gastrointestinal: Gastrointestinal: Denies abdominal pain Genitourinary: Genitourinary: Denies hematuria Musculoskeletal: Musculoskeletal: Denies back pain Integumentary/Breasts: Skin/Breast: Denies skin pain Neurologic: Denies Abnormal speech present Psychiatric: Psychiatric: Denies anxiety Endocrine: Endocrine: Denies excessive sweating Hematologic/Lymphatic: Hematologic/Lymphatic: Denies easy bleeding Allergic/Immunologic: Allergic/Immunologic: Denies GI upset with certain foods PMFSH Past Medical History Medical History Allerg
[2023-12-12] MEDS: METOPROLOL TARTRATE 50 MG TAB PO ×2 (11:08→20:25)
--- NOTE | 2023-12-12 18:58 | PM.IMPN ---
Progress Note: A&P Assessment and Plan (1) Atrial fibrillation with rapid ventricular response: Code(s): I48.91 - Unspecified atrial fibrillation Status: Acute (2) Elevated troponin: Code(s): R79.89 - Other specified abnormal findings of blood chemistry Status: Acute (3) Acute on chronic anemia: Code(s): D64.9 - Anemia, unspecified Status: Acute (4) Abnormal urinalysis: Code(s): R82.90 - Unspecified abnormal findings in urine Status: Acute (5) Acute kidney injury: Code(s): N17.9 - Acute kidney failure, unspecified Status: Acute (6) Cellulitis of left hand: Code(s): L03.114 - Cellulitis of left upper limb Status: Acute (7) Neurogenic bladder: Code(s): N31.9 - Neuromuscular dysfunction of bladder, unspecified Status: Acute (8) Hypertension: Code(s): I10 - Essential (primary) hypertension Status: Acute (9) Benign prostatic hyperplasia: Code(s): N40.0 - Benign prostatic hyperplasia without lower urinary tract symptoms Status: Acute (10) Chronic obstructive pulmonary disease: Code(s): J44.9 - Chronic obstructive pulmonary disease, unspecified Status: Acute Plan 12/11/2023: The patient presented to the emergency department from his doctor's office after he was found to be in new onset atrial fibrillation with rapid ventricular response as detailed in HPI. Labs, imaging, EKG, and all reports were personally reviewed. He has been feeling weak for about a week's time which is likely the length of time he has been in atrial fibrillation. He is currently on a diltiazem drip with improvement in his rate and this will be continued. Initial troponin was barely above the upper limit of normal though will continue to trend. Echocardiogram and TSH ordered. Cardiology has been consulted. He has an acute kidney injury of unclear etiology. He has a neurogenic bladder however straight caths several times a day. Renal ultrasound ordered. Volume status will be monitored closely with strict I/O. All medications will be renally dose and nephrotoxic agents will be avoided. He also has acute on chronic anemia with a 3.5 g drop in hemoglobin in the last 2 months. Per ED provider his stool was Hemoccult negative however will check stool sample for occult blood. Hold on anticoagulation for now until the anemia can be figured out. His weakness and shortness of breath is likely due to a combination of the rapid atrial fibrillation and worsening anemia. He may be weak due to underlying infection as well; it looks like he has cellulitis of the left hand. His urinalysis is abnormal but he does straight cath daily and is unclear if this represents true infection or asymptomatic bacteriuria which is probably most likely. Regardless he has been started on ceftriaxone which would cover both. No acute issues with regards to COPD. Regarding the arthritic pain he has been having, this is migratory and outpatient workup including GAYLA and uric acid were normal. He would likely benefit from a Rheumatology consult as an outpatient. In the interim acetaminophen is available. His home medications will be reviewed and resumed as appropriate. Findings and treatment plan were discussed with the patient. Questions were solicited and answered to satisfaction. The patient's medical management will be taken over by the hospitalist team in a.m. 12/12/2023: Patient admitted to IMU under full inpatient status Patient started on IV Cardizem drip which to discontinue with good heart rate control patient started on metoprolol tartrate 50 mg p.o. b.i.d. by Cardiology 2D echo with colorflow doppler ordered to evaluate cardiac structure and function Patient has significantly elevated Bulmaro Vasc score requiring anticoagulation which is held given his profound anemia Patient has labs consistent with iron deficiency anemia Patient started on IV Venofer 300 mg daily for 3 days Patient would
[2023-12-12] MEDS: OMEGA 3 POLYUNSAT FATTY ACIDS 1 GM CAP PO (20:26)
[2023-12-12 20:34] LABS: IFOB Positive Control Positive
[2023-12-12 20:35] LABS: Immunochemical Fecal Occult Bl Negative (N)
--- NOTE | 2023-12-12 22:25 | ECHO_ITS ---
Patient Info Name: Aric Burch Age: 88 years : 1935 Gender: Male Ht: 73 in Wt: 164 lbs BSA: 1.95 m2 HR: 91 bpm BP: 119 / 61 mmHg Heart Rhythm: Atrial Fibrillation Technical Quality: Good Exam Date: 12/12/2023 8:43 AM Exam Location: Echo Lab Patient Status: Outpatient Admit Date: 12/11/2023 Staff Ordering Physician: Jessica Clay PA-C Assistant Oceanographer: Toni Diggs RDCS Attending Provider: Bernardo Benton MD Referring Physician: Obed ARNETT; Exam Type: CA echo doppler color flow Study Info Indications - new onset atrial fibrillation Complete two-dimensional, color flow and Doppler transthoracic echocardiogram is performed. Summary 1. Complete two-dimensional, color flow and Doppler transthoracic echocardiogram is performed. 2. Left ventricular chamber dimension is normal. 3. Left ventricular systolic function is normal, estimated at 65-70%. 4. There is moderately increased left ventricular wall thickness. 5. The left ventricular diastolic function is indeterminate. 6. Left atrial chamber dimension is mildly enlarged. 7. There is mild to moderate aortic valve regurgitation. 8. There is mild mitral valve regurgitation. 9. There is mild tricuspid valve regurgitation. 10. The aortic root size at the sinus of Valsalva is moderately dilated. 11. The prox ascending aorta size is mildly dilated. Left Ventricle Left ventricular chamber dimension is normal. Left ventricular systolic function is normal, estimated at 65-70%. There is moderately increased left ventricular wall thickness. The left ventricular diastolic function is indeterminate. Right Ventricle Right ventricular chamber dimension is normal. Right ventricular systolic function is normal. Left Atria Left atrial chamber dimension is mildly enlarged. Right Atria Right atrial chamber dimension is normal. Atrial Septum Intact interatrial septum visualized by color flow imaging. Aortic Valve The aortic valve is trileaflet. There is mild aortic valve sclerosis. There is no aortic valve stenosis. There is mild to moderate aortic valve regurgitation. Pulmonic Valve The pulmonic valve is normal. There is no pulmonic valve stenosis. There is trace pulmonic regurgitation. Mitral Valve The mitral valve has normal leaflets. There is no mitral valve stenosis. There is mild mitral valve regurgitation. Tricuspid Valve The tricuspid valve leaflets are normal. There is no significant tricuspid valve stenosis. There is mild tricuspid valve regurgitation. No pulmonary hypertension, estimated pulmonary arterial systolic pressure is 34 mmHg. Pericardium/Pleural The pericardium appears normal. There is no pericardial effusion. Inferior Vena Cava Dilated inferior vena cava with <50% collapse upon inspiration consistent with elevated right atrial pressure, 15 mmHg. Aorta The aortic root size at the sinus of Valsalva is moderately dilated. The prox ascending aorta size is mildly dilated. Left Ventricular Outflow Tract Name Value Normal LVOT 2D LVOT Diameter 2.2 cm LVOT Doppler LVOT Peak Gradient 27 mmHg LVOT Mean Gradient 13 mmHg LVOT VTI
[2023-12-13] VITALS (20 sets, daily range): BP systolic 97–134; BP diastolic 52–67; PULSE 101–136; RESP 16–20; TEMP 36.2–37.1; O2SAT 96–100
[2023-12-13] MEDS: METOPROLOL TARTRATE 50 MG TAB PO ×4 (00:25→21:16)
[2023-12-13 05:03] LABS: Basophils Absolute Auto 0.1 K/mm3 (0.0-0.1); Basophils Percent Auto 0.8 % (0.2-1.2); Eosinophils Absolute Auto 0.1 K/mm3 (0-0.3); Eosinophils Percent Auto 1.4 % (0-4.4); Hematocrit 24.2 % (42.0-52.0); Hemoglobin 7.5 g/dL (14.0-18.0); Immature Granulocyte Absolute 0.05 K/mm3 (0.00-0.031); Immature Granulocyte Percent A 0.8 % (0-0.5); Lymphocytes Absolute Auto 0.84 K/mm3 (0.9-3.2); Lymphocytes Percent Auto 12.7 % (18.3-44.2); Mean Corpuscular Hemoglobin 27.7 pg (26-34); Mean Corpuscular Volume 89.3 fl (80-100); Mean Platelet Volume 10.3 fl (7.4-10.4); Monocytes Absolute Auto 0.4 K/mm3 (0.1-0.6); Monocytes Percent Auto 5.9 % (2.6-8.5); Neutrophils Absolute Auto 5.2 K/mm3 (1.3-6.7); Neutrophils Percent Auto 78.4 % (45.5-73.1); Platelet Count Result 234 k/mm3 (150-375); Red Blood Count 2.71 M/mm3 (4.6-6.20); Red Cell Distribution Width 13.6 % (11.5-14.5); White Blood Count 6.6 K/mm3 (4.5-10.0)
[2023-12-13 05:04] LABS: Anion Gap 7 mmol/L (4-12); Blood Urea Nitrogen 34 mg/dL (9-20); Calcium 8.5 mg/dL (8.4-10.2); Carbon Dioxide 26 mmol/L (22-30); Chloride 102 mmol/L (98-107); Estimated CRCL calculation 39 ml/min; Estimated Glomerular Filt Rate 57; Glucose 98 mg/dL (65-110); Phosphorus 4.6 mg/dL (2.5-4.5); Potassium 4.1 mmol/L (3.4-5.0); Sodium 135 mmol/L (137-145)
[2023-12-13] MEDS: POLYSACCHARIDE IRON COMPLEX 150 MG CAPSULE BY MOUTH (08:16)
[2023-12-13] MEDS: OPTI-GEN TAB 1 TABLET PO ×2 (08:18→17:03)
[2023-12-13] MEDS: CYANOCOBALAMIN 1,000 MCG TABLET 1000 MCG PO (08:18)
[2023-12-13] MEDS: ATORVASTATIN 20 MG TABLET PO (08:19)
[2023-12-13] MEDS: hydrALAZINE HCL 50 MG TABLET PO ×2 (08:19→17:03)
[2023-12-13] MEDS: FINASTERIDE 5 MG TABLET PO (08:20)
[2023-12-13] MEDS: AZELASTINE HCL NASAL 0.1% 137 MCG/SPR 30 ML BTL 1 SPRAY NASAL ×2 (08:20→20:52)
--- NOTE | 2023-12-13 14:58 | PM.PNCARD ---
Progress Note: A&P Assessment and Plan (1) SVT (supraventricular tachycardia): Code(s): I47.1 - Supraventricular tachycardia Status: Acute Assessment and Plan: He has a history of SVT. (2) Hypertension: Code(s): I10 - Essential (primary) hypertension Status: Acute Assessment and Plan: Above goal (3) Elevated troponin: Code(s): R79.89 - Other specified abnormal findings of blood chemistry Status: Acute Assessment and Plan: Not related to ACS. Likely from mild demand ischemia from AFib with RVR in the setting of significant anemia (4) Acute on chronic anemia: Code(s): D64.9 - Anemia, unspecified Status: Acute Assessment and Plan: Significant and worsening recently. Recommend GI evaluation and further workup per hospitalist (5) Atrial fibrillation: Code(s): I48.91 - Unspecified atrial fibrillation Status: Acute Assessment and Plan: New onset atrial fibrillation Increase metoprolol tartrate 50 mg p.o. q8h He has a significantly elevated chads Vasc score and anticoagulation is otherwise warranted however his anemia is problematic in given the fact his anemia has been worsening more recently, will hold off on anticoagulation at this point until clear source is identified. If no source is identified, consider left atrial appendage occluder device. 2D echocardiogram unremarkable Subjective Date/time seen: 12/13/23 14:58 Interval history: Cardiology follow up for atrial fibrillation He feels well today. No palpitations, shortness of breath, chest pain. Remains tachcardic rate frequently in the 120's. Review of Systems Review of Systems: All systems reviewed & are unremarkable except as noted in HPI and below Constitutional: Constitutional: Denies body ache(s) and Denies excessive sweating Eyes: Eyes: Denies blurry vision ENT: Denies Normal hearing present Cardiovascular: Cardiovascular: Denies chest pain, Reports leg edema and Reports dyspnea on exertion Respiratory: Respiratory: Reports dyspnea on exertion Gastrointestinal: Gastrointestinal: Denies abdominal pain Genitourinary: Genitourinary: Denies hematuria Musculoskeletal: Musculoskeletal: Denies back pain Integumentary/Breasts: Skin/Breast: Denies skin pain Neurologic: Denies Normal hearing present and Denies Abnormal speech present Psychiatric: Psychiatric: Denies anxiety Endocrine: Endocrine: Denies excessive sweating Hematologic/Lymphatic: Hematologic/Lymphatic: Denies easy bleeding Allergic/Immunologic: Allergic/Immunologic: Denies GI upset with certain foods Exam Narrative: Pleasant appropriate a little hard of hearing but appears stated age Const: General: comfortable and no acute distress HENMT: Face/Nose/Sinus: Normal nares present Mouth: Yes moist mucous membranes Eyes: General: appearance normal, both eyes and all related structures Sclera: sclerae normal Neck: Neck: supple and no JVD Thyroid: abnormal thyroid Chest: Other: No reproducible chest wall pain to palpation Resp: Effort & Inspection: normal respiratory effort Auscultation: clear to auscultation bilaterally Cardio: Rate: tachycardic Rhythm: abnormal rhythm irregularly irregular Heart sounds: Murmur heart sound present GI: Inspection: non-distended Auscultation: normal bowel sounds Skin: General skin exam: normal color Neuro: Cranial nerves: No Normal hearing present Speech: normal speech and No Abnormal speech present Extrem: General: edema Other: Trivial lower extremity edema bilaterally Psych: Mental Status: mental status grossly normal Affect: normal affect Objective Data Vital Signs Vital Signs: Vital Signs - 24 hr 12/12/23 16:00 12/12/23 16:00 12/12/23 16:00 Temperature 36.1 C L Pulse Rate 109 H 101 H Respiratory Rate 22 H Blood Pressure 136/67 Pulse Oximetry 96 Oxygen Delivery Room Air 12/12/23
--- NOTE | 2023-12-13 19:49 | PM.IMPN ---
Progress Note: A&P Assessment and Plan (1) Atrial fibrillation with rapid ventricular response: Code(s): I48.91 - Unspecified atrial fibrillation Status: Acute (2) Elevated troponin: Code(s): R79.89 - Other specified abnormal findings of blood chemistry Status: Acute (3) Acute on chronic anemia: Code(s): D64.9 - Anemia, unspecified Status: Acute (4) Abnormal urinalysis: Code(s): R82.90 - Unspecified abnormal findings in urine Status: Acute (5) Acute kidney injury: Code(s): N17.9 - Acute kidney failure, unspecified Status: Acute (6) Cellulitis of left hand: Code(s): L03.114 - Cellulitis of left upper limb Status: Acute (7) Neurogenic bladder: Code(s): N31.9 - Neuromuscular dysfunction of bladder, unspecified Status: Acute (8) Hypertension: Code(s): I10 - Essential (primary) hypertension Status: Acute (9) Benign prostatic hyperplasia: Code(s): N40.0 - Benign prostatic hyperplasia without lower urinary tract symptoms Status: Acute (10) Chronic obstructive pulmonary disease: Code(s): J44.9 - Chronic obstructive pulmonary disease, unspecified Status: Acute Plan 12/11/2023: The patient presented to the emergency department from his doctor's office after he was found to be in new onset atrial fibrillation with rapid ventricular response as detailed in HPI. Labs, imaging, EKG, and all reports were personally reviewed. He has been feeling weak for about a week's time which is likely the length of time he has been in atrial fibrillation. He is currently on a diltiazem drip with improvement in his rate and this will be continued. Initial troponin was barely above the upper limit of normal though will continue to trend. Echocardiogram and TSH ordered. Cardiology has been consulted. He has an acute kidney injury of unclear etiology. He has a neurogenic bladder however straight caths several times a day. Renal ultrasound ordered. Volume status will be monitored closely with strict I/O. All medications will be renally dose and nephrotoxic agents will be avoided. He also has acute on chronic anemia with a 3.5 g drop in hemoglobin in the last 2 months. Per ED provider his stool was Hemoccult negative however will check stool sample for occult blood. Hold on anticoagulation for now until the anemia can be figured out. His weakness and shortness of breath is likely due to a combination of the rapid atrial fibrillation and worsening anemia. He may be weak due to underlying infection as well; it looks like he has cellulitis of the left hand. His urinalysis is abnormal but he does straight cath daily and is unclear if this represents true infection or asymptomatic bacteriuria which is probably most likely. Regardless he has been started on ceftriaxone which would cover both. No acute issues with regards to COPD. Regarding the arthritic pain he has been having, this is migratory and outpatient workup including GAYLA and uric acid were normal. He would likely benefit from a Rheumatology consult as an outpatient. In the interim acetaminophen is available. His home medications will be reviewed and resumed as appropriate. Findings and treatment plan were discussed with the patient. Questions were solicited and answered to satisfaction. The patient's medical management will be taken over by the hospitalist team in a.m. 12/12/2023 - 12/13/2023: Patient admitted to IMU under full inpatient status Patient started on IV Cardizem drip which was discontinued after good heart rate control Patient started on metoprolol tartrate 50 mg p.o. b.i.d. by Cardiology Adjust cardiac meds for rate control as per Cardiology 2D echo with colorflow doppler ordered preserved LVF with EF 65-70% Patient has significantly elevated Bulmaro Vasc score requiring anticoagulation which is held given his profound anemia Patient has labs consistent with iron deficiency anemia Patient st
[2023-12-13] MEDS: OMEGA 3 POLYUNSAT FATTY ACIDS 1 GM CAP PO (20:53)
[2023-12-14] VITALS (17 sets, daily range): BP systolic 110–148; BP diastolic 54–74; PULSE 77–130; RESP 16–22; TEMP 36.4–37.3; O2SAT 95–97
[2023-12-14 04:18] LABS: Basophils Percent Auto 0.5 % (0.2-1.2); Eosinophils Absolute Auto 0.1 K/mm3 (0-0.3); Eosinophils Percent Auto 1.9 % (0-4.4); Hematocrit 25.4 % (42.0-52.0); Hemoglobin 7.9 g/dL (14.0-18.0); Immature Granulocyte Absolute 0.08 K/mm3 (0.00-0.031); Immature Granulocyte Percent A 1.3 % (0-0.5); Lymphocytes Absolute Auto 0.81 K/mm3 (0.9-3.2); Lymphocytes Percent Auto 12.7 % (18.3-44.2); Mean Corpuscular HGB Conc 31.1 g/dl (32-36); Mean Corpuscular Hemoglobin 27.7 pg (26-34); Mean Corpuscular Volume 89.1 fl (80-100); Mean Platelet Volume 10.2 fl (7.4-10.4); Monocytes Absolute Auto 0.4 K/mm3 (0.1-0.6); Monocytes Percent Auto 6.6 % (2.6-8.5); Neutrophils Absolute Auto 4.9 K/mm3 (1.3-6.7); Platelet Count Result 253 k/mm3 (150-375); Red Blood Count 2.85 M/mm3 (4.6-6.20); Red Cell Distribution Width 13.5 % (11.5-14.5); White Blood Count 6.4 K/mm3 (4.5-10.0)
[2023-12-14 04:35] LABS: Anion Gap 5 mmol/L (4-12); Blood Urea Nitrogen 34 mg/dL (9-20); Calcium 8.6 mg/dL (8.4-10.2); Carbon Dioxide 28 mmol/L (22-30); Chloride 102 mmol/L (98-107); Estimated CRCL calculation 42 ml/min; Estimated Glomerular Filt Rate > 60; Glucose 99 mg/dL (65-110); Potassium 4.1 mmol/L (3.4-5.0); Sodium 135 mmol/L (137-145)
[2023-12-14] MEDS: METOPROLOL TARTRATE 50 MG TAB PO (08:12)
[2023-12-14] MEDS: AZELASTINE HCL NASAL 0.1% 137 MCG/SPR 30 ML BTL 1 SPRAY NASAL ×2 (08:12→21:19)
[2023-12-14] MEDS: hydrALAZINE HCL 50 MG TABLET PO ×2 (08:13→17:57)
[2023-12-14] MEDS: POLYSACCHARIDE IRON COMPLEX 150 MG CAPSULE BY MOUTH (08:13)
[2023-12-14] MEDS: CYANOCOBALAMIN 1,000 MCG TABLET 1000 MCG PO (08:13)
[2023-12-14] MEDS: ATORVASTATIN 20 MG TABLET PO (08:13)
[2023-12-14] MEDS: OPTI-GEN TAB 1 TABLET PO ×2 (08:13→17:57)
[2023-12-14] MEDS: FINASTERIDE 5 MG TABLET PO (08:14)
--- NOTE | 2023-12-14 08:57 | PM.PNCARD ---
Progress Note: A&P Assessment and Plan (1) SVT (supraventricular tachycardia): Code(s): I47.1 - Supraventricular tachycardia Status: Acute Assessment and Plan: He has a history of SVT. (2) Hypertension: Code(s): I10 - Essential (primary) hypertension Status: Acute Assessment and Plan: Above goal (3) Elevated troponin: Code(s): R79.89 - Other specified abnormal findings of blood chemistry Status: Acute Assessment and Plan: Not related to ACS. Likely from mild demand ischemia from AFib with RVR in the setting of significant anemia (4) Acute on chronic anemia: Code(s): D64.9 - Anemia, unspecified Status: Acute Assessment and Plan: Significant and worsening recently. Recommend GI evaluation and further workup per hospitalist (5) Atrial fibrillation: Code(s): I48.91 - Unspecified atrial fibrillation Status: Acute Assessment and Plan: New onset atrial fibrillation Increase metoprolol tartrate to 75 mg p.o. q8h. If heart rate does not improve over the next 24 hours, may need to add diltiazem or shift to amiodarone He has a significantly elevated chads Vasc score and anticoagulation is otherwise warranted however his anemia is problematic in given the fact his anemia has been worsening more recently, will hold off on anticoagulation at this point until clear source is identified. If no source is identified, consider left atrial appendage occluder device. 2D echocardiogram unremarkable Subjective Date/time seen: 12/14/23 08:57 Interval history: Cardiology follow up for atrial fibrillation He feels well today. No palpitations, shortness of breath, chest pain. Remains tachcardic rate frequently in the 120's. Date of service 12/14/2023: Heart rate remains elevated despite increasing metoprolol yesterday. He remains asymptomatic. Review of Systems Review of Systems: All systems reviewed & are unremarkable except as noted in HPI and below Constitutional: Constitutional: Denies body ache(s) and Denies excessive sweating Eyes: Eyes: Denies blurry vision ENT: Denies Normal hearing present Cardiovascular: Cardiovascular: Denies chest pain, Reports leg edema and Reports dyspnea on exertion Respiratory: Respiratory: Reports dyspnea on exertion Gastrointestinal: Gastrointestinal: Denies abdominal pain Genitourinary: Genitourinary: Denies hematuria Musculoskeletal: Musculoskeletal: Denies back pain Integumentary/Breasts: Skin/Breast: Denies skin pain Neurologic: Denies Normal hearing present and Denies Abnormal speech present Psychiatric: Psychiatric: Denies anxiety Endocrine: Endocrine: Denies excessive sweating Hematologic/Lymphatic: Hematologic/Lymphatic: Denies easy bleeding Allergic/Immunologic: Allergic/Immunologic: Denies GI upset with certain foods Exam Narrative: Pleasant appropriate a little hard of hearing but appears stated age Const: General: comfortable and no acute distress HENMT: Face/Nose/Sinus: Normal nares present Mouth: Yes moist mucous membranes Eyes: General: appearance normal, both eyes and all related structures Sclera: sclerae normal Neck: Neck: supple and no JVD Thyroid: abnormal thyroid Chest: Other: No reproducible chest wall pain to palpation Resp: Effort & Inspection: normal respiratory effort Auscultation: clear to auscultation bilaterally Cardio: Rate: tachycardic Rhythm: abnormal rhythm irregularly irregular Heart sounds: Murmur heart sound present GI: Inspection: non-distended Auscultation: normal bowel sounds Skin: General skin exam: normal color Neuro: Cranial nerves: No Normal hearing present Speech: normal speech and No Abnormal speech present Extrem: General: edema Other: Trivial lower extremity edema bilaterally Psych: Mental Status: mental status grossly normal Affect: normal affect Objective Data Vital Signs Vital Signs:
[2023-12-14 12:49] LABS: Anti Nuclear Antibody Pattern Nuclear, Homogeneous
[2023-12-14] MEDS: METOPROLOL TARTRATE 25 MG TABLET 75 MG PO ×2 (13:30→21:19)
--- NOTE | 2023-12-14 17:39 | PM.IMPN ---
Progress Note: A&P Assessment and Plan (1) Atrial fibrillation with rapid ventricular response: Code(s): I48.91 - Unspecified atrial fibrillation Status: Acute (2) Elevated troponin: Code(s): R79.89 - Other specified abnormal findings of blood chemistry Status: Acute (3) Acute on chronic anemia: Code(s): D64.9 - Anemia, unspecified Status: Acute (4) Abnormal urinalysis: Code(s): R82.90 - Unspecified abnormal findings in urine Status: Acute (5) Acute kidney injury: Code(s): N17.9 - Acute kidney failure, unspecified Status: Acute (6) Cellulitis of left hand: Code(s): L03.114 - Cellulitis of left upper limb Status: Acute (7) Neurogenic bladder: Code(s): N31.9 - Neuromuscular dysfunction of bladder, unspecified Status: Acute (8) Hypertension: Code(s): I10 - Essential (primary) hypertension Status: Acute (9) Benign prostatic hyperplasia: Code(s): N40.0 - Benign prostatic hyperplasia without lower urinary tract symptoms Status: Acute (10) Chronic obstructive pulmonary disease: Code(s): J44.9 - Chronic obstructive pulmonary disease, unspecified Status: Acute Plan 12/11/2023: The patient presented to the emergency department from his doctor's office after he was found to be in new onset atrial fibrillation with rapid ventricular response as detailed in HPI. Labs, imaging, EKG, and all reports were personally reviewed. He has been feeling weak for about a week's time which is likely the length of time he has been in atrial fibrillation. He is currently on a diltiazem drip with improvement in his rate and this will be continued. Initial troponin was barely above the upper limit of normal though will continue to trend. Echocardiogram and TSH ordered. Cardiology has been consulted. He has an acute kidney injury of unclear etiology. He has a neurogenic bladder however straight caths several times a day. Renal ultrasound ordered. Volume status will be monitored closely with strict I/O. All medications will be renally dose and nephrotoxic agents will be avoided. He also has acute on chronic anemia with a 3.5 g drop in hemoglobin in the last 2 months. Per ED provider his stool was Hemoccult negative however will check stool sample for occult blood. Hold on anticoagulation for now until the anemia can be figured out. His weakness and shortness of breath is likely due to a combination of the rapid atrial fibrillation and worsening anemia. He may be weak due to underlying infection as well; it looks like he has cellulitis of the left hand. His urinalysis is abnormal but he does straight cath daily and is unclear if this represents true infection or asymptomatic bacteriuria which is probably most likely. Regardless he has been started on ceftriaxone which would cover both. No acute issues with regards to COPD. Regarding the arthritic pain he has been having, this is migratory and outpatient workup including GAYLA and uric acid were normal. He would likely benefit from a Rheumatology consult as an outpatient. In the interim acetaminophen is available. His home medications will be reviewed and resumed as appropriate. Findings and treatment plan were discussed with the patient. Questions were solicited and answered to satisfaction. The patient's medical management will be taken over by the hospitalist team in a.m. 12/12/2023 - 12/14/2023: Patient admitted to IMU under full inpatient status Patient started on IV Cardizem drip which was discontinued after good heart rate control Cardiology adjusted metoprolol tartrate 75 mg p.o. q.8 hours to control heart rate Adjust cardiac meds for rate control as per Cardiology 2D echo with colorflow doppler ordered preserved LVF with EF 65-70% Patient has significantly elevated Bulmaro Vasc score requiring anticoagulation which is held given his profound anemia Patient has labs consistent with iron deficiency anemia
[2023-12-14] MEDS: IRON SUCROSE COMPLEX 300 MG in SODIUM CHLORIDE 0.9% IV 250 ML 177 MG IVPB (19:49)
[2023-12-14] MEDS: OMEGA 3 POLYUNSAT FATTY ACIDS 1 GM CAP PO (21:19)
[2023-12-15] VITALS (15 sets, daily range): BP systolic 114–149; BP diastolic 60–75; PULSE 98–136; RESP 12–22; TEMP 36.4–37.4; O2SAT 95–98
[2023-12-15 04:31] LABS: Basophils Absolute Auto 0.1 K/mm3 (0.0-0.1); Basophils Percent Auto 0.7 % (0.2-1.2); Eosinophils Absolute Auto 0.2 K/mm3 (0-0.3); Eosinophils Percent Auto 2.4 % (0-4.4); Hematocrit 25.4 % (42.0-52.0); Hemoglobin 7.9 g/dL (14.0-18.0); Immature Granulocyte Absolute 0.09 K/mm3 (0.00-0.031); Immature Granulocyte Percent A 1.3 % (0-0.5); Lymphocytes Absolute Auto 0.66 K/mm3 (0.9-3.2); Lymphocytes Percent Auto 9.8 % (18.3-44.2); Mean Corpuscular HGB Conc 31.1 g/dl (32-36); Mean Corpuscular Volume 90.1 fl (80-100); Mean Platelet Volume 9.6 fl (7.4-10.4); Monocytes Absolute Auto 0.5 K/mm3 (0.1-0.6); Neutrophils Absolute Auto 5.3 K/mm3 (1.3-6.7); Neutrophils Percent Auto 78.8 % (45.5-73.1); Platelet Count Result 225 k/mm3 (150-375); Red Blood Count 2.82 M/mm3 (4.6-6.20); Red Cell Distribution Width 13.5 % (11.5-14.5); White Blood Count 6.7 K/mm3 (4.5-10.0)
[2023-12-15 04:47] LABS: Anion Gap 3 mmol/L (4-12); Blood Urea Nitrogen 38 mg/dL (9-20); Calcium 8.6 mg/dL (8.4-10.2); Carbon Dioxide 29 mmol/L (22-30); Chloride 104 mmol/L (98-107); Estimated CRCL calculation 46 ml/min; Estimated Glomerular Filt Rate > 60; Glucose 97 mg/dL (65-110); Potassium 4.2 mmol/L (3.4-5.0); Sodium 136 mmol/L (137-145)
[2023-12-15] MEDS: METOPROLOL TARTRATE 25 MG TABLET 75 MG PO (05:56)
[2023-12-15] MEDS: hydrALAZINE HCL 50 MG TABLET PO ×2 (08:37→18:18)
[2023-12-15] MEDS: OPTI-GEN TAB 1 TABLET PO ×2 (08:38→18:18)
[2023-12-15] MEDS: AZELASTINE HCL NASAL 0.1% 137 MCG/SPR 30 ML BTL 1 SPRAY NASAL (08:38)
[2023-12-15] MEDS: IRON SUCROSE COMPLEX 300 MG in SODIUM CHLORIDE 0.9% IV 250 ML 177 MG IVPB (08:38)
[2023-12-15] MEDS: POLYSACCHARIDE IRON COMPLEX 150 MG CAPSULE BY MOUTH (08:38)
[2023-12-15] MEDS: CYANOCOBALAMIN 1,000 MCG TABLET 1000 MCG PO (08:38)
[2023-12-15] MEDS: FINASTERIDE 5 MG TABLET PO (08:38)
[2023-12-15] MEDS: ATORVASTATIN 20 MG TABLET PO (08:38)
--- NOTE | 2023-12-15 12:24 | PM.PNCARD ---
Progress Note: A&P Assessment and Plan (1) Atrial fibrillation with rapid ventricular response: Code(s): I48.91 - Unspecified atrial fibrillation Status: Acute Assessment and Plan: New onset atrial fibrillation Pursuing rate control strategy as patient is unable to be anticoagulated at this time. Will change Metoprolol to 100mg BID. Start Diltiazem 60mg PO Q6HR. He has a significantly elevated [id number] VASC score and anticoagulation is otherwise warranted however his anemia is problematic in given the fact his anemia has been worsening more recently, will hold off on anticoagulation at this point until clear source is identified.? If no source is identified, consider left atrial appendage occluder device as an outpatient. 2D echocardiogram unremarkable (2) SVT (supraventricular tachycardia): Code(s): I47.1 - Supraventricular tachycardia Status: Acute Assessment and Plan: He has a history of SVT. (3) Hypertension: Code(s): I10 - Essential (primary) hypertension Status: Acute Assessment and Plan: At goal. (4) Elevated troponin: Code(s): R79.89 - Other specified abnormal findings of blood chemistry Status: Acute Assessment and Plan: Not related to ACS. Likely from mild demand ischemia from AFib with RVR in the setting of significant anemia (5) Acute on chronic anemia: Code(s): D64.9 - Anemia, unspecified Status: Acute Assessment and Plan: Significant and worsening recently. Recommend GI evaluation and further workup per hospitalist Subjective Date/time seen: 12/15/23 12:24 Interval history: Cardiology follow up for atrial fibrillation with RVR He feels okay. Reports having diarrhea this morning. Remains in RVR. Does not feel any palpitations. Review of Systems Review of Systems: All systems reviewed & are unremarkable except as noted in HPI and below (HPI) Exam Const: General: comfortable and no acute distress HENMT: Mouth: Yes moist mucous membranes Eyes: General: appearance normal, both eyes and all related structures Sclera: sclerae normal Neck: Neck: supple Resp: Effort & Inspection: normal respiratory effort Cardio: Rate: tachycardic Rhythm: abnormal rhythm irregularly irregular Skin: General skin exam: normal color Neuro: Speech: normal speech Psych: Mental Status: mental status grossly normal Affect: normal affect Objective Data Vital Signs Vital Signs: Vital Signs - 24 hr 12/14/23 13:30 12/14/23 16:00 12/14/23 14:00 Temperature 37.3 C Pulse Rate 110 H 125 H 107 H Respiratory Rate 18 Blood Pressure 110/74 Pulse Oximetry 97 Oxygen Delivery 12/14/23 16:00 12/14/23 16:00 12/14/23 18:00 Temperature Pulse Rate 122 H 104 H Respiratory Rate Blood Pressure Pulse Oximetry Oxygen Delivery Room Air 12/14/23 20:00 12/14/23 20:00 12/14/23 20:00 Temperature 36.4 C L Pulse Rate 77 130 H Respiratory Rate 20 Blood Pressure 135/56 L Pulse Oximetry 95 Oxygen Delivery Room Air 12/14/23 21:19 12/14/23 22:00 12/14/23 23:19 Temperature 36.8 C Pulse Rate 109 H 112 H 110 H Respiratory Rate 20 Blood Pressure 116/60 Pulse Oximetry 96 Oxygen Delivery 12/15/23 00:00 12/15/23 00:00 12/15/23 02:00 Temperature Pulse Rate 119 H 108 H Respiratory Rate Blood Pressure Pulse Oximetry Oxygen Delivery Room Air 12/15/23 04:00 12/15/23 04:00 12/15/23 04:00 Temperature 36.7 C Pulse Rate 114 H 98 Respiratory Rate 12 Blood Pressure 116/60 Pulse Oximetry 95 Oxygen Delivery Room Air 12/15/23 05:56 12/15/23 06:00 12/15/23 08:00 Temperature 36.4 C Pulse Rate 136 H 128 H 119 H Respiratory Rate 22 H Blood Pressure 114/65 Pulse Oximetry 95 Oxygen Delivery 12/15/23 08:00 Temperature Pulse Rate Respiratory Rate Blood Pressure Pulse Oximetry Oxygen Delivery Room Air [facility]
[2023-12-15] MEDS: dilTIAZem HCL 60 MG TABLET PO ×2 (12:52→18:18)
--- NOTE | 2023-12-15 15:27 | PM.IMPN ---
Progress Note: A&P Assessment and Plan (1) Atrial fibrillation with rapid ventricular response: Code(s): I48.91 - Unspecified atrial fibrillation Status: Acute (2) Elevated troponin: Code(s): R79.89 - Other specified abnormal findings of blood chemistry Status: Acute (3) Acute on chronic anemia: Code(s): D64.9 - Anemia, unspecified Status: Acute (4) Abnormal urinalysis: Code(s): R82.90 - Unspecified abnormal findings in urine Status: Acute (5) Acute kidney injury: Code(s): N17.9 - Acute kidney failure, unspecified Status: Acute (6) Cellulitis of left hand: Code(s): L03.114 - Cellulitis of left upper limb Status: Acute (7) Neurogenic bladder: Code(s): N31.9 - Neuromuscular dysfunction of bladder, unspecified Status: Acute (8) Hypertension: Code(s): I10 - Essential (primary) hypertension Status: Acute (9) Benign prostatic hyperplasia: Code(s): N40.0 - Benign prostatic hyperplasia without lower urinary tract symptoms Status: Acute (10) Chronic obstructive pulmonary disease: Code(s): J44.9 - Chronic obstructive pulmonary disease, unspecified Status: Acute Plan 12/11/2023: The patient presented to the emergency department from his doctor's office after he was found to be in new onset atrial fibrillation with rapid ventricular response as detailed in HPI. Labs, imaging, EKG, and all reports were personally reviewed. He has been feeling weak for about a week's time which is likely the length of time he has been in atrial fibrillation. He is currently on a diltiazem drip with improvement in his rate and this will be continued. Initial troponin was barely above the upper limit of normal though will continue to trend. Echocardiogram and TSH ordered. Cardiology has been consulted. He has an acute kidney injury of unclear etiology. He has a neurogenic bladder however straight caths several times a day. Renal ultrasound ordered. Volume status will be monitored closely with strict I/O. All medications will be renally dose and nephrotoxic agents will be avoided. He also has acute on chronic anemia with a 3.5 g drop in hemoglobin in the last 2 months. Per ED provider his stool was Hemoccult negative however will check stool sample for occult blood. Hold on anticoagulation for now until the anemia can be figured out. His weakness and shortness of breath is likely due to a combination of the rapid atrial fibrillation and worsening anemia. He may be weak due to underlying infection as well; it looks like he has cellulitis of the left hand. His urinalysis is abnormal but he does straight cath daily and is unclear if this represents true infection or asymptomatic bacteriuria which is probably most likely. Regardless he has been started on ceftriaxone which would cover both. No acute issues with regards to COPD. Regarding the arthritic pain he has been having, this is migratory and outpatient workup including GAYLA and uric acid were normal. He would likely benefit from a Rheumatology consult as an outpatient. In the interim acetaminophen is available. His home medications will be reviewed and resumed as appropriate. Findings and treatment plan were discussed with the patient. Questions were solicited and answered to satisfaction. The patient's medical management will be taken over by the hospitalist team in a.m. 12/12/2023 - 12/15/2023:: Patient admitted to IMU under full inpatient status Patient started on IV Cardizem drip which was discontinued after good heart rate control Cardiology continuously adjusting meds for heart rate control 12/15/2023: Increased Metoprolol tartrate to 100 mg p.o. bid and additional diltiazem 60 mg p.o. q.6 hours ordered as per Cardiology for heart rate control Continue close follow-up with Cardiology for rate control 2D echo with colorflow doppler ordered preserved LVF with EF 65-70% Patient has significantly elevated
[2023-12-15] MEDS: OMEGA 3 POLYUNSAT FATTY ACIDS 1 GM CAP PO (20:42)
[2023-12-15] MEDS: METOPROLOL TARTRATE 50 MG TAB 100 MG PO (20:42)
[2023-12-16] VITALS (10 sets, daily range): BP systolic 109–129; BP diastolic 55–71; PULSE 82–116; RESP 18–20; TEMP 35.9–36.9; O2SAT 92–98
[2023-12-16] MEDS: dilTIAZem HCL 60 MG TABLET PO ×3 (00:02→12:12)
[2023-12-16 04:37] LABS: Basophils Absolute Auto 0.1 K/mm3 (0.0-0.1); Basophils Percent Auto 0.6 % (0.2-1.2); Eosinophils Absolute Auto 0.2 K/mm3 (0-0.3); Eosinophils Percent Auto 1.9 % (0-4.4); Hematocrit 25.2 % (42.0-52.0); Hemoglobin 7.8 g/dL (14.0-18.0); Immature Granulocyte Absolute 0.14 K/mm3 (0.00-0.031); Immature Granulocyte Percent A 1.8 % (0-0.5); Lymphocytes Absolute Auto 0.68 K/mm3 (0.9-3.2); Lymphocytes Percent Auto 8.6 % (18.3-44.2); Mean Corpuscular Hemoglobin 27.7 pg (26-34); Mean Corpuscular Volume 89.4 fl (80-100); Mean Platelet Volume 10.2 fl (7.4-10.4); Monocytes Absolute Auto 0.6 K/mm3 (0.1-0.6); Monocytes Percent Auto 7.1 % (2.6-8.5); Neutrophils Absolute Auto 6.3 K/mm3 (1.3-6.7); Platelet Count Result 257 k/mm3 (150-375); Red Blood Count 2.82 M/mm3 (4.6-6.20); Red Cell Distribution Width 13.8 % (11.5-14.5); White Blood Count 7.9 K/mm3 (4.5-10.0)
[2023-12-16 04:49] LABS: Anion Gap 5 mmol/L (4-12); Blood Urea Nitrogen 40 mg/dL (9-20); Calcium 8.7 mg/dL (8.4-10.2); Carbon Dioxide 29 mmol/L (22-30); Chloride 102 mmol/L (98-107); Estimated CRCL calculation 50 ml/min; Estimated Glomerular Filt Rate > 60; Glucose 109 mg/dL (65-110); Potassium 4.4 mmol/L (3.4-5.0); Sodium 136 mmol/L (137-145)
[2023-12-16] MEDS: POLYSACCHARIDE IRON COMPLEX 150 MG CAPSULE BY MOUTH (09:08)
[2023-12-16] MEDS: hydrALAZINE HCL 50 MG TABLET PO (09:08)
[2023-12-16] MEDS: METOPROLOL TARTRATE 50 MG TAB 100 MG PO (09:09)
[2023-12-16] MEDS: FINASTERIDE 5 MG TABLET PO (09:09)
[2023-12-16] MEDS: OPTI-GEN TAB 1 TABLET PO (09:09)
[2023-12-16] MEDS: CYANOCOBALAMIN 1,000 MCG TABLET 1000 MCG PO (09:09)
[2023-12-16] MEDS: ATORVASTATIN 20 MG TABLET PO (09:09)
[2023-12-16] MEDS: IRON SUCROSE COMPLEX 300 MG in SODIUM CHLORIDE 0.9% IV 250 ML 177 MG IVPB (09:13)
[2023-12-16] MEDS: AZELASTINE HCL NASAL 0.1% 137 MCG/SPR 30 ML BTL 1 SPRAY NASAL (09:17)
--- NOTE | 2023-12-16 11:45 | PM.PNCARD ---
Progress Note: A&P Assessment and Plan (1) Atrial fibrillation with rapid ventricular response: Code(s): I48.91 - Unspecified atrial fibrillation Status: Acute Assessment and Plan: New onset atrial fibrillation Pursuing rate control strategy as patient is unable to be anticoagulated at this time. Continue Metoprolol 100mg BID. Started Diltiazem 60mg PO Q6HR. Patient is now rate controlled. Can transition Diltiazem to 240mg once daily. He has a significantly elevated [id number] VASC score and anticoagulation is otherwise warranted however his anemia is problematic in given the fact his anemia has been worsening more recently, will hold off on anticoagulation at this point until clear source is identified.? If no source is identified, consider left atrial appendage occluder device as an outpatient. 2D echocardiogram unremarkable (2) SVT (supraventricular tachycardia): Code(s): I47.1 - Supraventricular tachycardia Status: Acute Assessment and Plan: He has a history of SVT. (3) Hypertension: Code(s): I10 - Essential (primary) hypertension Status: Acute Assessment and Plan: At goal. (4) Elevated troponin: Code(s): R79.89 - Other specified abnormal findings of blood chemistry Status: Acute Assessment and Plan: Not related to ACS. Likely from mild demand ischemia from AFib with RVR in the setting of significant anemia (5) Acute on chronic anemia: Code(s): D64.9 - Anemia, unspecified Status: Acute Assessment and Plan: Significant and worsening recently. Recommend GI evaluation and further workup per hospitalist Plan From my standpoint, okay to discharge as patient is now rate controlled. Continue Metoprolol. Can transition short acting Diltiazem to long acting for easier dosing schedule. Will arrange outpatient follow up in our office. Recommendations and plan discussed with Hospitalist. Subjective Date/time seen: 12/16/23 11:45 Interval history: Cardiology follow up for atrial fibrillation with RVR Heart rates are controlled now with the addition of PO Diltazem. Review of Systems Review of Systems: All systems reviewed & are unremarkable except as noted in HPI and below (HPI) Exam Const: General: comfortable and no acute distress HENMT: Mouth: Yes moist mucous membranes Eyes: General: appearance normal, both eyes and all related structures Sclera: sclerae normal Resp: Effort & Inspection: normal respiratory effort Cardio: Rhythm: abnormal rhythm irregularly irregular Skin: General skin exam: normal color Neuro: Speech: normal speech Psych: Mental Status: mental status grossly normal Affect: normal affect Objective Data Vital Signs Vital Signs: Vital Signs - 24 hr 12/15/23 12:00 12/15/23 12:00 12/15/23 12:00 Temperature 36.4 C L Pulse Rate 118 H 128 H Respiratory Rate 18 Blood Pressure 146/64 H Pulse Oximetry 98 Oxygen Delivery Room Air 12/15/23 14:00 12/15/23 16:00 12/15/23 16:00 Temperature 37.3 C Pulse Rate 114 H 135 H 120 H Respiratory Rate 20 Blood Pressure 124/75 Pulse Oximetry 96 Oxygen Delivery 12/15/23 18:00 12/15/23 16:00 12/15/23 20:00 Temperature 37.4 C Pulse Rate 101 H 120 H Respiratory Rate 20 Blood Pressure 149/61 H Pulse Oximetry 96 Oxygen Delivery Room Air 12/15/23 20:42 12/15/23 20:00 12/15/23 20:00 Temperature Pulse Rate 118 H 108 H Respiratory Rate Blood Pressure Pulse Oximetry Oxygen Delivery Room Air 12/15/23 22:00 12/16/23 00:00 12/16/23 00:00 Temperature 36.9 C Pulse Rate 101 H 116 H Respiratory Rate 18 Blood Pressure 109/59 L Pulse Oximetry 96 Oxygen Delivery Room Air 12/16/23 00:00 12/15/23 22:37 12/16/23 02:00 Temperature Pulse Rate 104 H 97 Respiratory Rate Blood Pressure Pulse Oximetry 96 Oxygen Delivery Room Air 12/16/23 04:00 12/16/23 04:00 0
--- NOTE | 2023-12-16 13:17 | PM.DS ---
DS: Admitting Diagnosis Discharge Date 12/16/2023 Admitting Diagnosis Atrial fibrillation with rapid ventricular response DS: Discharge Diagnosis Discharge Diagnosis (1) Atrial fibrillation with rapid ventricular response: Code(s): I48.91 - Unspecified atrial fibrillation Status: Acute Assessment and Plan: Seen in consultation by Cardiology Rate controlled on p.o. diltiazem and metoprolol. Will continue diltiazem 240 mg once daily and metoprolol 100 mg b.i.d. Requires anticoagulation based on his CHADS2-Vasc score but not a candidate currently due to worsening anemia. May need to consider left atrial appendage occlusion device as an outpatient. Echo reviewed during admission was unremarkable (2) Elevated troponin: Code(s): R79.89 - Other specified abnormal findings of blood chemistry Status: Acute Assessment and Plan: Not felt to be due to ACS per Cardiology Likely secondary to demand ischemia from AFib and anemia (3) Acute on chronic anemia: Code(s): D64.9 - Anemia, unspecified Status: Acute Assessment and Plan: Has had 3-4 point drop in hemoglobin from baseline Hemoccult negative in ER. Stool occult blood test negative Received IV iron infusion x3 during admission Continue oral iron supplement Plan for repeat H&H in 1 week Follow-up with PCP for further evaluation. May need to consider outpatient GI eval (4) UTI (urinary tract infection): Code(s): N39.0 - Urinary tract infection, site not specified Status: Acute Assessment and Plan: Urine culture with growth of Klebsiella species Received IV ceftriaxone during admission Will continue p.o. cefdinir as an outpatient to complete course (5) Acute kidney injury: Code(s): N17.9 - Acute kidney failure, unspecified Status: Resolved Assessment and Plan: Creatinine elevated up to 1.5 on admission GABBY unremarkable Promptly resolved. Creatinine 1.0 at time of discharge (6) Cellulitis of left hand: Code(s): L03.114 - Cellulitis of left upper limb Status: Ruled-out Assessment and Plan: No evidence of infection Patient continues on oral antibiotics for UTI as above (7) Hypertension: Code(s): I10 - Essential (primary) hypertension Status: Acute Assessment and Plan: Blood pressures remain stable during admission Started on metoprolol and diltiazem as above Will discontinue losartan to avoid hypotension Follow-up PCP in 1-2 weeks for BP recheck (8) Neurogenic bladder: Code(s): N31.9 - Neuromuscular dysfunction of bladder, unspecified Status: Acute Assessment and Plan: Does intermittent self catheterization 3 times per day DS: Summary Hospital Course Hospital Course: Aric Burch is an 88-year-old male with a history of neurogenic bladder, COPD, hypertension, iron deficiency anemia who presented to the emergency department on 12/11/2023 with complaints of dyspnea and generalized weakness. He was found to have new onset atrial fibrillation and was admitted to the hospitalist service and seen in consultation by Cardiology. His rate was able to be controlled with oral medications and he will continue diltiazem and metoprolol as an outpatient. He was not able to be anticoagulated due to worsening anemia. He received IV iron infusions during admission and will continue p.o. iron supplement. Will repeat H&H as an outpatient in 1 week and follow-up with PCP for further monitoring. May need to consider a Watchman device if he continues to not be an appropriate candidate for anticoagulation. He will follow-up with his PCP and Cardiology as an outpatient. He was found to have UTI during admission for which he was treated with ceftriaxone and transitioned to cefdinir. He will continue with self catheterization 3 times per day. Patient was overall feeling much improved in eager for discharge home. Discussed wor
== END 2023-12-16 14:18 | disposition home or self-care (01) | DRG 309 ==
LOC: ANHED 17:40 → ANHIMU 18:20
PROVIDERS: Emergency Medicine; Physician Assistant; Admitting Provider Family Medicine; Emergency Provider Physician Assistant; PCP Family Medicine; Visit Provider Hospitalist
DX: I48.91 Unspecified atrial fibrillation (principal); N17.9 Acute kidney failure, unspecified; N39.0 Urinary tract infection, site not specified; B96.1 Klebsiella pneumoniae [K. pneumoniae] as the cause of diseases classified elsewhere; D50.9 Iron deficiency anemia, unspecified; E78.5 Hyperlipidemia, unspecified; F41.1 Generalized anxiety disorder; H91.90 Unspecified hearing loss, unspecified ear; I47.10 Supraventricular tachycardia, unspecified; I10 Essential (primary) hypertension; J44.9 Chronic obstructive pulmonary disease, unspecified; N31.9 Neuromuscular dysfunction of bladder, unspecified; N40.0 Benign prostatic hyperplasia without lower urinary tract symptoms; Z87.891 Personal history of nicotine dependence
CPT/HCPCS: 36415; 36600; 71046; 71275; 76775; 80048; 80053; 81001; 82274; 82550; 82607; 82728; 82746; 82805; 83540; 83550; 83735; 83880; 84100; 84443; 84484; 84550; 85014; 85018; 85025; 85027; 86038; 86039; 86140; 86430; 87040; 87077; 87086; 87088; 87186; 93005; 93306; 93971; 96374; 96376; 99285; A9270; G0378; J0696; J1756; J7050; Q9967

== ENCOUNTER 2024-01-07 11:15 | Outpatient (CLI) | payer MEDICARE, SELFPAY ==
[2024-01-07 11:36] LABS: Basophils Absolute Auto 0.1 K/mm3 (0.0-0.1); Basophils Percent Auto 0.8 % (0.2-1.2); Eosinophils Absolute Auto 0.1 K/mm3 (0-0.3); Eosinophils Percent Auto 2.2 % (0-4.4); Hematocrit 34.2 % (42.0-52.0); Hemoglobin 10.6 g/dL (14.0-18.0); Immature Granulocyte Absolute 0.07 K/mm3 (0.00-0.031); Immature Granulocyte Percent A 1.1 % (0-0.5); Lymphocytes Absolute Auto 0.73 K/mm3 (0.9-3.2); Lymphocytes Percent Auto 11.7 % (18.3-44.2); Mean Corpuscular Hemoglobin 27.5 pg (26-34); Mean Corpuscular Volume 88.8 fl (80-100); Mean Platelet Volume 8.8 fl (7.4-10.4); Monocytes Absolute Auto 0.4 K/mm3 (0.1-0.6); Monocytes Percent Auto 6.9 % (2.6-8.5); Neutrophils Absolute Auto 4.8 K/mm3 (1.3-6.7); Neutrophils Percent Auto 77.3 % (45.5-73.1); Platelet Count Result 245 k/mm3 (150-375); Red Blood Count 3.85 M/mm3 (4.6-6.20); Red Cell Distribution Width 15.6 % (11.5-14.5); White Blood Count 6.3 K/mm3 (4.5-10.0)
[2024-01-07 17:04] LABS: Alanine Aminotransferase 16 U/L (6-50); Albumin Level 3.9 g/dL (3.5-5.1); Alkaline Phosphatase 106 U/L (38-126); Anion Gap 10 mmol/L (4-12); Aspartate Amino Transferase 21 U/L (17-59); Bilirubin,Total 0.4 mg/dL (0.2-1.3); Blood Urea Nitrogen 27 mg/dL (9-20); Carbon Dioxide 29 mmol/L (22-30); Chloride 96 mmol/L (98-107); Estimated Glomerular Filt Rate 57; Glucose 109 mg/dL (65-110); Lactate Dehydrogenase 151 U/L (120-246); Potassium 4.2 mmol/L (3.4-5.0); Sodium 135 mmol/L (137-145)
[2024-01-07 17:19] LABS: Iron 35 ug/dL (49-181)
[2024-01-07 17:29] LABS: Percent Iron Saturation 20 % (20-50)
[2024-01-07 17:50] LABS: Vitamin D 25 Hydroxy 59.2 ng/mL
[2024-01-11 12:28] LABS: Methylmalonic Acid 198 nmol/L (85-423)
[2024-01-11 13:47] LABS: Soluble Transferrin Receptor 1.75 mg/L (0.76-1.76)
== END 2024-01-07 11:16 | disposition home or self-care (01) ==
LOC: ANHLAB 11:19
PROVIDERS: PCP Family Medicine; Visit Provider Nurse Practitioner Family
DX: D50.9 Iron deficiency anemia, unspecified (principal); E55.9 Vitamin D deficiency, unspecified
CPT/HCPCS: 36415; 80053; 82306; 82607; 82728; 82746; 83540; 83550; 83615; 83921; 84238; 85025

== ENCOUNTER 2024-05-08 08:45 | Outpatient (CLI) | payer MEDICARE, SELFPAY ==
--- NOTE | ~2024-05-08 | CT_ITS ---
EXAMINATION: CT chest abdomen pelvis w con DATE: 05/08/2024 09:26 INDICATION: Abnormal weight loss. TECHNIQUE: Computed tomography (CT) of the chest, abdomen, and pelvis was performed with 100 mL Omnip aque 350 intravenous contrast. Automated exposure control and iterative reconstruction technique were employed. The dose-length product was 503.13 mGy-cm. COMPARISON: Chest CT 12/11/2023, CT abdomen and pelvis 10/03/23 FINDINGS: CHEST CT: There is mild scarring at the lung apices. There is mild emphysema. There is mild atelectasis bilater ally. There is a small left pleural effusion. The heart size is normal. There are coronary artery roddy cifications. No pericardial effusion. There is ectasia of ascending aorta measuring 4.6 cm, stable fr om 10/03/2023. There is severe thoracic spondylosis. ABDOMEN/PELVIS CT: Calcifications in the liver and spleen are consistent with old granulomatous disease. There are galls tones in the gallbladder, which is normal in size. The pancreas and adrenal glands are normal. There is cortical thinning of the kidneys. There is a 1.8 cm cyst in right kidney. There is calcified ather osclerosis of the aorta and many of the other arteries. The prostate is mildly enlarged. There are no dilated loops of bowel. The appendix is normal. There are no pathologically enlarged lymph nodes. Th ere is no free intraperitoneal fluid. There is severe lumbar spondylosis. IMPRESSION: 1. Mild emphysema. 2. Small left pleural effusion. Reviewed, dictated and finalized at location A.
[2024-05-08 09:16] LABS: Estimated Glomerular Filt Rate > 60
== END 2024-05-08 08:46 | disposition home or self-care (01) ==
PROVIDERS: PCP Family Medicine; Visit Provider Internal Medicine Hematology & Oncology
DX: J43.9 Emphysema, unspecified (principal); J90 Pleural effusion, not elsewhere classified; R63.4 Abnormal weight loss
CPT/HCPCS: 71260; 74177; Q9967

== ENCOUNTER 2024-07-05 14:18 | Emergency (ER) | payer MEDICARE, SELFPAY ==
[2024-07-05 14:38] VITALS: BP 177/55; PULSE 79; RESP 16; TEMP 36.4; O2SAT 100
[2024-07-05 14:49] LABS: EDUAAPPEAR Cloudy; EDUABILI Negative (Negative); EDUABLOOD 2+ (Negative); EDUACOLOR1 Amber; EDUAGLUCOSE Negative (Negative); EDUAKETONE Negative (Negative); EDUALEUKO 3+ (Negative); EDUANITRATE Negative (Negative); EDUAPH 5.5; EDUAPROTEIN 2+ (Negative); EDUASPGRAVITY 1.015; EDUAUROBILI 0.2
--- NOTE | 2024-07-05 14:58 | ED.FEMALEGU ---
HPI - Female Genitourinary General Chief complaint: Urogenital-Male Stated complaint: UTI Time Seen by Provider: 07/05/24 14:58 Source: patient and family Mode of arrival: ambulatory Limitations: no limitations History of Present Illness HPI Narrative: 88-year-old male presents with complaint of dark urine, malodorous for the past 2-3 days also reports body aches, chills, fatigue. No abdominal or back pain. Denies dysuria. Patient self caths 3 times a day due to prostate issues. All systems reviewed and negative except as noted above. Related Data Home Medications ?Medication ?Instructions ?Recorded ?Confirmed ?Last Taken ?Type cyanocobalamin (vitamin B-12) 1,000 mcg PO DAILY 10/31/21 07/05/24 12/11/23 History 1,000 mcg tablet (Vitamin B-12) omega-3 fatty acids 1,000 mg PO HS 10/31/21 07/05/24 12/10/23 History vit C 250 mg-vit E 90 mg-zinc 40 1 tablet PO BID 02/12/23 07/05/24 12/11/23 History mg-copper 1 [id number] capsule (PreserVision AREDS-2) ezetimibe 10 mg tablet (Zetia) 10 mg PO DAILY 02/08/24 07/05/24 Unknown History fluticasone fur. 100 mcg-umeclid 1 inh inhalation DAILY 06/02/24 07/05/24 Unknown History 62.5 mcg-vilant 25 mcg inhalat.powder (Trelegy Ellipta) Allergies Allergy/AdvReac Type Severity Reaction Status Date / Time prednisone AdvReac Severe tachycardia Verified 07/05/24 14:42 Review of Systems Review of Systems: CONSTITUTIONAL: Denies fever. Reports chills, or sweats. EYES: Denies visual changes, redness, or discharge. ENT: Denies rhinorrhea, congestion, sore throat, or otalgia. CARDIOVASCULAR: Denies chest pain, palpitations, or edema. RESPIRATORY: Denies cough or dyspnea. GASTROINTESTINAL: Denies abdominal pain, nausea, vomiting, or diarrhea. GENITOURINARY: Denies dysuria or hematuria. Reports dark urine, malodorous SKIN: Denies rash or itching. MUSCULOSKELETAL: Denies back pain, joint pain. Reports myalgia. NEUROLOGIC: Denies headache, numbness, or weakness. PSYCHIATRIC: Denies anxiety or depression. All other systems reviewed are negative, except as documented in HPI. [facility] Past Medical History Medical History Iron deficiency anemia Hypertension Neurogenic bladder Anxiety Chronic obstructive pulmonary disease Benign prostatic hyperplasia Mesenteric artery stenosis Anemia Allergies Carotid artery bruit Surgical History Surgical History History of cataract surgery Family History Family History Sibling Diabetes mellitus Lupus Mother Colon cancer metastasized to brain Family history of malignant neoplasm Sibling Diabetes mellitus Scleroderma Sibling Diabetes mellitus Father Leukemia Social History Social History Social History: Healthcare power of juvenile correctional officer: Zahida Kruse, significant other. Code status: Full code. Smoking packs per day: 1 Smoking cigarettes per day: 20.0 Years smoked: 40 Smoking pack-years: 40.00 Smoking status: Former smoker Tobacco type: cigarettes Second hand tobacco smoke exposure: No Smoking end date: 07/16/00 Alcohol intake: never Substance use: never Substance use type: does not use Do You Feel Safe in your Home?: Yes Lack of Transportation: No Lack of Food: Never True Current Housing: I Have Housing Concerned About Future Housing: No Difficulty Paying Gas/Electric Bills: No Difficulty Paying for Meds: No Currently Unemployed: YES Education: Don't Know Difficulty w/ Childcare or Family Care: No Living arrangements: with family Occupation/Education: retired Additional occupation/education comments: 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 Spiritual care concerns: No Agree to blood products: Yes Comments At time of signature, agree with nursing past medical, surgical, social and family history. There is no relevant family history pertinent to the presenting complaint. Exam Narrative: GENERAL: This is a well-nourished, well-developed patient, in no apparent distress. HEAD: normocephalic, atraumatic. EYES: PERRL. Sclera clear/white. Vision is grossly intact. EARS: External ears normal NOSE: External nose normal NECK: Neck supple, non-tender without lymphadenopathy, masses or thyromegaly. CARDIOVASCULAR: Regular rate and rhythm without murmurs, gallops, or rubs. RESPIRATORY: Clear to auscultation. Breath sounds equal bilaterally. No wheezes, rales, or rhonchi. SKIN: warm, Dry, intact with no suspicious lesions or rash, good texture and turgor. NEURO: awake, alert, and oriented to person, place and time. There were no obvious focal neurologic abnormalities. EXTREMITIES: No joint tenderness, effusion, or edema noted. Course Course Level of Care: Express Care Visit Vital Signs Vital signs: Vital Signs Temperature 36.4 C L 07/05/24 14:38 Pulse Rate 79 07/05/24 14:38 Respiratory Rate 16 07/05/24 14:38 Blood Pressure 177/55 H 07/05/24 14:38 Pulse Oximetry 100 07/05/24 14:38 Oxygen Delivery Room Air 07/05/24 14:38 Temperature 36.4 C L 07/05/24 14:38 Pulse Rate 79 07/05/24 14:38 Respiratory Rate 16 07/05/24 14:38 Blood Pressure 177/55 H 07/05/24 14:38 Pulse Oximetry 100 07/05/24 14:38 Oxygen Delivery Room Air 07/05/24 14:38 reviewed MDM - Female Genitourinary MDM Narrative Medical decision making narrative: urinalysis positive for leukocytes, blood. Will treat patient for urinary tract infection due to patient's symptoms. Recommend follow-up with primary care physician as needed. Patient is aware of diagnosis, understands and agrees to treatment plan. Anticipatory guidance given. Patient agrees to follow-up as directed and is aware of reasons to seek care at the emergency department. Portions of this record may have been created with voice recognition software Lab Data Labs: Lab Results 07/05/24 Range/Units 14:47 POC Urine Color Liz POC Urine Clarity Cloudy POC Urine pH 5.5 POC Ur Specif [place] 1.015 POC Urine Protein 2+ (Negative) POC Ur Glucose (UA) Negative (Negative) POC Urine Ketones Negative (Negative) POC Urine Blood 2+ (Negative) POC Urine Nitrite Negative (Negative) POC Urine Bilirubin Negative (Negative) POC Urine Urobilinogen 0.2 POC U Leukocyte Esteras 3+ (Negative) Discharge Plan Discharge Clinical Impression: Urinary tract infection Qualifiers: Urinary tract infection type: site unspecified Hematuria presence: with hematuria Qualified Code(s): N39.0 - Urinary tract infection, site not specified Patient Disposition: Home, Self-Care Condition: Stable Instructions: Antibiotic Form, Urinary Tract Infection in Older Adults (ED) Additional Instructions: take antibiotic as prescribed until gone. Take Tylenol every 6-8 hours as needed for pain and fever. Drink plenty of water and rest. Follow-up with your primary care physician if symptoms are not improving. Patient Language: Urdu Prescriptions: New sulfamethoxazole-trimethoprim [Bactrim DS] 800-160 mg tablet 1 tablet PO Q12H 10 Days Qty: 20 0RF No Action ezetimibe [Zetia] 10 mg tablet 10 mg PO DAILY nitroglycerin 0.4 mg tablet, sublingual 0.4 mg sublingual Q5M PRN (Reason: chest pain) Qty: 90 0RF Rx Instructions: do not exceed 3 doses per episode Trelegy Ellipta 100-62.5-25 mcg blister with device 1 inh inhalation DAILY diltiazem HCl 240 mg capsule,extended release 24hr 240 mg PO DAILY Qty: 90 3RF metoprolol succinate 50 mg tablet extended release 24 hr 50 mg PO DAILY Qty: 90 0RF quetiapine [Seroquel] 25 mg tablet 25 mg PO QHS Qty: 60 3RF Rx Instructions: start 1 tab at HS, may increase to 2 tabs in 1 week finasteride 5 mg tablet 5 mg PO DAILY Qty: 90 4RF PreserVision AREDS-2 250-90-40-1 mg capsule 1 tablet PO BID Patient Comments: as per eye cyanocobalamin (vitamin B-12) [Vitamin B-12] 1,000 mcg Tablet 1,000 mcg PO DAILY omega-3 fatty acids Capsule 1,000 mg PO HS azelastine 137 mcg (0.1 %) spray,non-aerosol 137 mcg intranasal Q12H Qty: 30 0RF Rx Instructions: administer into each nostril albuterol sulfate 90 mcg/actuation HFA aerosol inhaler See Rx Instructions .ROUTE .COMPLEX Qty: 9 0RF Dose Instruction: INHALE 1 PUFF BY MOUTH EVERY 4 HOURS NEEDED FOR SHORTNESS OF BREATH FOR WHEEZING Rx Instructions: INHALE 1 PUFF BY MOUTH EVERY 4 HOURS NEEDED FOR SHORTNESS OF BREATH FOR WHEEZING polysaccharide iron complex [Ferrex 150] 150 mg iron capsule See Rx Instructions .ROUTE .COMPLEX Qty: 180 0RF Dose Instruction: Take 1 capsule by mouth twice daily Rx Instructions: Take 1 capsule by mouth twice daily hydralazine 100 mg tablet See Rx Instructions .ROUTE .COMPLEX Qty: 180 0RF Dose Instruction: Take 1 tablet by mouth twice daily Rx Instructions: Take 1 tablet by mouth twice daily prednisone 10 mg tablet 10 mg PO DAILY Qty: 18 0RF Rx Instructions: Take PO 3 tabs daily x3 days, 2 tabs daily x3 days, 1 tab daily x3 days Follow-up/Referrals: Rosette Ayala MD [Primary Care Provider] - Time of Disposition: 14:55
== END 2024-07-05 15:10 | disposition home or self-care (01) ==
PROVIDERS: Emergency Provider Nurse Practitioner Family; PCP Family Medicine
DX: N39.0 Urinary tract infection, site not specified (principal); I10 Essential (primary) hypertension; J44.9 Chronic obstructive pulmonary disease, unspecified; Z87.891 Personal history of nicotine dependence
CPT/HCPCS: 81003; 87077; 87086; 87186; 99213; G0463

== ENCOUNTER 2024-07-22 09:42 | Emergency (ER) | payer MEDICARE, SELFPAY ==
[2024-07-22] VITALS (22 sets, daily range): BP systolic 102–194; BP diastolic 49–86; PULSE 71–89; RESP 16–18; TEMP 36.8; O2SAT 93–100
[2024-07-22 10:20] LABS: Hematocrit 23.6 % (42.0-52.0); Hemoglobin 7.8 g/dL (14.0-18.0); Immature Platelet Fraction Pct 1.7 % (0.9-11.2); Mean Corpuscular HGB Conc 33.1 g/dl (32-36); Mean Corpuscular Hemoglobin 29.3 pg (26-34); Mean Corpuscular Volume 88.7 fl (80-100); Mean Platelet Volume 9.9 fl (7.4-10.4); Platelet Count Result 104 k/mm3 (150-375); Red Blood Count 2.66 M/mm3 (4.6-6.20); Red Cell Distribution Width 14.6 % (11.5-14.5)
[2024-07-22 10:27] LABS: Alanine Aminotransferase 14 U/L (6-50); Albumin Level 3.1 g/dL (3.5-5.1); Alkaline Phosphatase 91 U/L (38-126); Anion Gap 7 mmol/L (4-12); Aspartate Amino Transferase 24 U/L (17-59); Bilirubin,Total 0.7 mg/dL (0.2-1.3); Blood Urea Nitrogen 53 mg/dL (9-20); Calcium 8.5 mg/dL (8.4-10.2); Carbon Dioxide 24 mmol/L (22-30); Chloride 106 mmol/L (98-107); Estimated CRCL calculation 17 ml/min; Estimated Glomerular Filt Rate 23; Glucose 96 mg/dL (65-110); Potassium 4.6 mmol/L (3.4-5.0); Sodium 137 mmol/L (137-145)
[2024-07-22 10:29] LABS: INR 1.1; Prothrombin Time 14.6 Seconds (11.1-14.7)
[2024-07-22 10:43] LABS: White Blood Count 1.6 K/mm3 (4.5-10.0)
[2024-07-22 10:52] LABS: Total Cells Counted 100
[2024-07-22 10:53] LABS: Basophils Absolute Manual 0.01 K/mm3 (0.0-0.1); Basophils Percent Manual 1 % (0-1); Eosinophils Absolute Manual 0.04 K/mm3 (0.02-0.50); Eosinophils Percent Manual 3 % (0-4); Large Platelets Present; Lymphocytes Absolute Manual 0.36 K/mm3 (1.1-4.5); Lymphocytes Percent Manual 23 % (18-44); Monocytes Absolute Manual 0.09 K/mm3 (0.1-0.90); Monocytes Percent Manual 6 % (3-9); Neutrophils Percent Manual 67 % (46-73); Platelet Estimate Decreased (Adequate)
[2024-07-22 10:54] LABS: Anisocytosis 1+; Ovalocytes 1+; Schistocytes None Seen
--- NOTE | 2024-07-22 11:41 | ED.RECABL ---
HPI - Recheck/Abnormal Lab/Rx General Chief Complaint: Recheck/Abnormal Lab/Rx Stated Complaint: I'm low on fluids Time Seen by Provider: 07/22/24 10:51 Source: patient and other (clinic) Limitations: other (Hard of hearing but can hear when spoken to slowly and at close range) History of Present Illness HPI narrative: Received phone call at 09:04 from the physician's advertising assistant in Dr. Van's office, who is patient's PCP. He was seen approximately 1 week ago, on Sunday for increasing weakness and malaise. On 07/05/2024 patient had been placed on Bactrim for a urinary tract infection. When seen in clinic last week, labs and a repeat urinalysis were ordered. Patient did not have them done immediately but rather had them done on Sunday. The results are being followed up with now, other than a delay given the weather. She notes that it appeared there was still a UTI that was resistant to the Bactrim. They also note that he had an acute kidney injury with elevated creatinine where it was normal previously. That also noted a significant drop in his hemoglobin, from 11.1 previously to 7.8. In general, he is pancytopenic. He has a history of iron deficiency anemia with previous admission for this. Patient states he has been feeling better. He told triage she was told he was either bone fluids or possibly low on iron or both. He is hard of hearing and states that his new hearing aids arrive in 1-2 weeks. For his iron deficiency anemia he has been taking iron twice daily. He says he previously saw cryptography teacher/oncologist years ago while he was in the or through a 's work up. No fevers, chills. He states he had had some weight loss but this has been improving. He has been eating sardines which he attributes to feel better. He states he has only an occasional mild cough and that it is not much but the phlegm is slightly sticky when he does. Denies any diarrhea, hematuria, trauma, hematochezia, hemoptysis, hematemesis, etc.. His last colonoscopy was years ago. No history of malignancy. Related Data Home Medications ?Medication ?Instructions ?Recorded ?Confirmed ?Last Taken ?Type cyanocobalamin (vitamin B-12) 1,000 mcg PO DAILY 04/07/14/24 12/11/23 History 1,000 mcg tablet (Vitamin B-12) omega-3 fatty acids 1,000 mg PO HS 10/31/21 07/14/24 12/10/23 History vit C 250 mg-vit E 90 mg-zinc 40 1 tablet PO BID 02/12/23 07/14/24 12/11/23 History mg-copper 1 qc-tdsdec-bitfee capsule (PreserVision AREDS-2) ezetimibe 10 mg tablet (Zetia) 10 mg PO DAILY 02/08/24 07/14/24 Unknown History budesonide 160 mcg-glycopyr 9 2 inh inhalation BID 07/14/24 07/14/24 Unknown History mcg-formot 4.8 mcg/actuation HFA inhaler (Breztri Aerosphere) Allergies Allergy/AdvReac Type Severity Reaction Status Date / Time prednisone AdvReac Severe tachycardia Verified 07/14/24 13:30 [facility] Past Medical History Medical History Iron deficiency anemia Hypertension Neurogenic bladder Anxiety Chronic obstructive pulmonary disease Benign prostatic hyperplasia Mesenteric artery stenosis Anemia Allergies Carotid artery bruit Surgical History Surgical History History of cataract surgery Family History Family History Sibling Diabetes mellitus Lupus Mother Colon cancer metastasized to brain Family history of malignant neoplasm Sibling Diabetes mellitus Scleroderma Sibling Diabetes mellitus Father Leukemia Social History Social History (Updated 07/23/24 @ 06:10 by Vanita Pastor MD) Social History: Healthcare power of litigation attorney associate: Zahida Kruse, significant other. Code status: Full code. Smoking packs per day: 1 Smoking cigarettes per day: 20.0 Years smoked: 40 Smoking pack-years: 40.00 Smoking status: Former smoker Tobacco type: cigarettes Second hand tobacco smoke exposure: No Smoking end date: 07/16/00 Alcohol intake: never Substance use: never Substance use type: does not use Do You Feel Safe in your Home?: Yes Lack of Transportation: No Lack of Food: Never True Current Housing: I Have Housing Concerned About Future Housing: No Difficulty Paying Gas/Electric Bills: No Difficulty Paying for Meds: No Currently Unemployed: YES Education: Don't Know Difficulty w/ Childcare or Family Care: No Living arrangements: alone Occupation/Education: retired Additional occupation/education comments: 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 Former ([employer]); served with [employer]. Spiritual care concerns: No Agree to blood products: Yes Exam Narrative: GENERAL: Well-appearing, well-nourished, and in no acute distress. HEAD: Normocephalic, atraumatic. EYES: Non injected, non icteric ENT: Nares clear, no rhinorrhea or epistaxis. Hard of hearing but can hear when spoken to slowly and at close range. NECK: Supple. CHEST: Speaking in full sentences. No respiratory distress. HEART: Regular rate and rhythm. . ABDOMEN: Soft, nondistended. Rectal: Digital rectal exam performed with nurse Cheyenne present as statistical typist/advertising assistant. Normal rectal tone. Normal stool on gloved finger which is FOBT/guiac negative. Patient does have a well-healing scab from a fairly linear wound approximately 2cm in length on right buttock, no surrounding erythema, purulent discharge, or induration. There is also a subcentimeter lesion/wound on his left buttock that is not draining anything or with surrounding erythema, induration. EXTREMITIES: Normal range of motion. No lower extremity edema. SKIN: Warm, dry, no rash. NEURO: No focal deficits. Alert and oriented x3. PSYCH: Normal mood and affect. Course Vital Signs Vital signs: Vital Signs Temperature 98.2 F 07/22/24 09:58 Pulse Rate 89 07/22/24 09:58 Respiratory Rate 16 07/22/24 09:58 Blood Pressure 194/75 H 07/22/24 09:58 Pulse Oximetry 99 07/22/24 09:58 Oxygen Delivery Room Air 07/22/24 09:58 Temperature 98.2 F 07/22/24 09:58 Pulse Rate 71 07/22/24 15:11 Respiratory Rate 18 07/22/24 15:11 Blood Pressure 180/56 H 07/22/24 15:11 Pulse Oximetry 100 07/22/24 15:11 Oxygen Delivery Room Air 07/22/24 09:58 MDM - Recheck/Abnormal Lab/Rx MDM Narrative Medical decision making narrative: Patient presents to the emergency department after being advised to come by primary care provider. It was noted that he was anemic and had poor kidney function on labs that were obtained on Sunday under being reviewed today (a delay due to weather/offices closing). In the emergency department he is afebrile vital signs notable for hypertension. Urine culture from 07/18/2024 is reviewed which shows E coli which was resistant to the Bactrim that he had previously been prescribed as well as ciprofloxacin and levofloxacin. It is however sensitive to amoxicillin/clav, ampicillin/sulbactam, cefepime, ceftazidime, ceftriaxone, gentamicin, imipenem, meropenem, nitrofurantoin, and piperacillin tazobactam. Will give ceftriaxone. Patient has an acute kidney injury; patient's creatinine was 3.2 on the labs he had recently obtained and 2.6 today but typically normal. IV fluids ordered. He has a normocytic anemia and in general is pancytopenic. Hemoglobin had previously been at 7 but then had showed recovery. Leukopenia is new. Platelets have been downtrending but not thrombocytopenic before. Patient otherwise states that he has been feeling improved over the past week. Elevated ferritin, iron level normal, and low TIBC point to potential thalassemia major. Confirmed patient is not on a blood thinner. I initially offered an observation admission for continued hydration and a repeat H&H to the patient. He was initially fairly indifferent although family members at bedside were concerned and recommended that he be admitted given that he lives alone. He initially acquiesced and I discussed the patient with Dr. Szymanski and put in admission orders however immediately afterwards I was notified the patient decided he did not want to stay. This also is reasonable given the fact that admitting to the hospital not completely benign and would potentially expose him to nosocomial infections. He states he is otherwise feeling very good today, far better than he felt last week and he does look to be feeling okay despite his labs. I did stress the importance of maintaining hydration given the ANGELA, taking the oral antibiotic, and following up with Dr. Van after getting repeat labs as well as following up with hematology. He verifies understanding and is in agreement and we discussed return precautions and he states he will come back if he feels unwell. Told doctor Stephon to disregard the admission. I did discuss with patient's physician's advertising assistant Darcy Scott the plan and she is in agreement. She states he already sees Hematology and she will call their office to make sure he gets a follow-up appointment. Follow up labs are ordered with the plan to be CC'd to Ms Scott. Discharged home stable condition. Medical Records Attestation: I reviewed the patient's medical records. Lab Data Attestation: I reviewed the patient's lab results. 07/22/24 10:12 07/22/24 10:12 Labs: Lab Results 07/22/24 07/22/24 Range/Units 10:11 10:12 WBC 1.6 L* (4.5-10.0) K/mm3 RBC 2.66 L (4.6-6.20) M/mm3 Hgb 7.8 L D (14.0-18.0) g/dL Hct 23.6 L (42.0-52.0) % MCV 88.7 (80-100) fl MCH 29.3 (26-34) pg MCHC 33.1 (32-36) g/dl RDW 14.6 H (11.5-14.5) % Plt Count 104 L (150-375) k/mm3 MPV 9.9 (7.4-10.4) fl Immature Gran % (Auto) Not Reportable Neut % (Auto) Not Reportable Lymph % (Auto) Not Reportable Edmunds % (Auto) Not Reportable Eos % (Auto) Not Reportable Baso % (Auto) Not Reportable Lymph # (Auto) Not Reportable Edmunds # (Auto) Not Reportable Eos # (Auto) Not Reportable Baso # (Auto) Not Reportable Abs Immat Gran (auto) Not Reportable Absolute Neuts (auto) Not Reportable Absolute Nucleated RBC Not Reportable Total Counted 100 Neutrophils % (Manual) 67 (46-73) % Lymphocytes % (Manual) 23 (18-44) % Monocytes % (Manual) 6 (3-9) % Eosinophils % (Manual) 3 (0-4) % Basophils % (Manual) 1 (0-1) % Nucleated RBC % Not Reportable Abs Lymphs (Manual) 0.36 L (1.1-4.5) K/mm3 Abs Monocytes (Manual) 0.09 L (0.1-0.90) K/mm3 Absolute Eos (Manual) 0.04 (0.02-0.50) K/mm3 Abs Basophils (Manual) 0.01 (0.0-0.1) K/mm3 Platelet Estimate Decreased (Adequate) Large Platelets Present % Immature Plt Fraction 1.7 (0.9-11.2) % Anisocytosis 1+ Ovalocytes 1+ Schistocytes None seen PT 14.6 (11.1-14.7) Seconds INR 1.1 APTT 40.2 H (22.3-36.8) Seconds Sodium 137 (137-145) mmol/L Potassium 4.6 (3.4-5.0) mmol/L Chloride 106 (98-107) mmol/L Carbon Dioxide 24 (22-30) mmol/L Anion Gap 7 (4-12) mmol/L BUN 53 H D (9-20) mg/dL Creatinine 2.60 H (0.7-1.3) mg/dL Estim Creat Clear Calc 17 ml/min Estimated GFR 23 L (59 - ) Glucose 96 (65-110) mg/dL Calcium 8.5 (8.4-10.2) mg/dL Iron 60 (49-181) ug/dL TIBC 184 L (265-497) ug/dL % Saturation 33 (20-50) % Ferritin 827.00 H (11.1-264) ng/mL Total Bilirubin 0.7 (0.2-1.3) mg/dL AST 24 (17-59) U/L ALT 14 (6-50) U/L Alkaline Phosphatase 91 (38-126) U/L Total Protein 7.0 (6.3-8.2) g/dL Albumin 3.1 L (3.5-5.1) g/dL Discharge Plan Discharge Clinical Impression: ANGELA (acute kidney injury), E-coli UTI, Pancytopenia Patient Disposition: Home, Self-Care Condition: Stable Instructions: Antibiotic Form, Acute Kidney Injury (DC), Urinary Tract Infection in Men (ED), Pancytopenia (DC) Additional Instructions: As we discussed, it appears you are dehydrated. We gave you a L of fluids but you are encouraged to continue drinking plenty of water over the next several days. You also had anemia. Follow-up for repeat labs. You received your 1st dose of a new antibiotic today with the rest of the course prescribed. Follow-up with hematology. Return to the emergency department with any new/worsening/unmanaged/recurrent symptoms. Patient Language: Guamanian Prescriptions: New cefpodoxime 200 mg tablet 200 mg PO BID 11 Days Qty: 22 0RF Rx Instructions: must administer with a meal/food; start 07/23/24 (received first dose ED 07/22) No Action sulfamethoxazole-trimethoprim [Bactrim DS] 800-160 mg tablet 1 tablet PO Q12H 10 Days Qty: 20 0RF ezetimibe [Zetia] 10 mg tablet 10 mg PO DAILY nitroglycerin 0.4 mg tablet, sublingual 0.4 mg sublingual Q5M PRN (Reason: chest pain) Qty: 90 0RF Rx Instructions: do not exceed 3 doses per episode diltiazem HCl 240 mg capsule,extended release 24hr 240 mg PO DAILY Qty: 90 3RF metoprolol succinate 50 mg tablet extended release 24 hr 50 mg PO DAILY Qty: 90 0RF finasteride 5 mg tablet 5 mg PO DAILY Qty: 90 4RF PreserVision AREDS-2 250-90-40-1 mg capsule 1 tablet PO BID Patient Comments: as per eye omeprazole 40 mg capsule,delayed release(DR/EC) 40 mg PO DAILY Qty: 30 0RF Breztri Aerosphere 160-9-4.8 mcg/actuation HFA aerosol inhaler 2 inh inhalation BID Rx Instructions: sample provided in office cyanocobalamin (vitamin B-12) [Vitamin B-12] 1,000 mcg Tablet 1,000 mcg PO DAILY omega-3 fatty acids Capsule 1,000 mg PO HS azelastine 137 mcg (0.1 %) spray,non-aerosol 137 mcg intranasal Q12H Qty: 30 0RF Rx Instructions: administer into each nostril albuterol sulfate 90 mcg/actuation HFA aerosol inhaler See Rx Instructions .ROUTE .COMPLEX Qty: 9 0RF Dose Instruction: INHALE 1 PUFF BY MOUTH EVERY 4 HOURS NEEDED FOR SHORTNESS OF BREATH FOR WHEEZING Rx Instructions: INHALE 1 PUFF BY MOUTH EVERY 4 HOURS NEEDED FOR SHORTNESS OF BREATH FOR WHEEZING polysaccharide iron complex [Ferrex 150] 150 mg iron capsule See Rx Instructions .ROUTE .COMPLEX Qty: 180 0RF Dose Instruction: Take 1 capsule by mouth twice daily Rx Instructions: Take 1 capsule by mouth twice daily hydralazine 100 mg tablet See Rx Instructions .ROUTE .COMPLEX Qty: 180 0RF Dose Instruction: Take 1 tablet by mouth twice daily Rx Instructions: Take 1 tablet by mouth twice daily Other Ambulatory Orders: Basic Metabolic Panel (Routine) Timeframe: 20240725 Location: Determined by Patient Ordered By: Vanita Pastor Complete Blood Count with Diff (Routine) Timeframe: 20240725 Location: Determined by Patient Ordered By: Vanita Pastor Follow-up/Referrals: Zeke Braden MD [Physician] - (hematology) Murphy Van MD [Physician] - (family practice) Lucy,Rosette Salgado MD [Primary Care Provider] - Darcy Scott PADevonC [Physician Bisque Kiln Drawer] - (patient's primary care provider) Time of Disposition: 14:56
[2024-07-22 12:12] LABS: Partial Thromboplastin Time 40.2 Seconds (22.3-36.8)
[2024-07-22] MEDS: SODIUM CHLORIDE 0.9% IV 1,000 ML 999 ML IV CONT (12:12)
[2024-07-22 13:07] LABS: Iron 60 ug/dL (49-181)
[2024-07-22 13:16] LABS: Percent Iron Saturation 33 % (20-50)
--- OUTSIDE RECORDS SUMMARY | 2024-07-29 03:31 | XMS_ITS | Encounter Summary ---
Author Organization [email or web address] Address [address] [place] [address] Care Team Providers Care Wood Preserving Plant Laborer Name Role Phone Rosette Ayala MD Primary Care Provider [phone]- [phone] Encounter Details Date Type Department Care Team (Late Contact Info) Description 05/09/2024 Orders Only [facility] Oncology [facility] Hematology [facility] [address] [place] [address] Zeke Braden MD [facility] [address] [place] [phone] Social History Tobacco Use Types Packs/Day Years Used Date Smoking Tobacco: Former Cigarettes 1 30 0 07/16/1970 - 07/16/2000 Smokeless Tobacco: Never Alcohol Use Standard Drinks/Week Comments Not Currently 0 (1 standard drink = 0.6 oz pur e alcohol) Socially Sex and Gender Information Value Date Recorded Sex Assigned at Not on file Gender Identity Not on file Sexual Orientation Not on file documented as of this encounter Plan of Treatment Upcoming Encounters Date Type Department Care Team (Late Contact Info) Description 08/12/2024 11:30 AM CLIENT RELATIONS REPRESENTATIVE Office Visit [facility] Oncology and Hematology [place] [address] [place] [address] Zeke Braden MD [address] [employer] [address] [place] [phone] documented as of this encounter Procedures Procedure Name Priority Date/Time Associated Diagnosis Comments CREATININE Routine 05/08/2024 12:07 PM CDT documented in this encounter Results * CREATININE (05/08/2024 12:07 PM CDT) Blood Zeke Braden MD CHEMISTRY ORDERABLES documented in this encounter Visit Diagnoses Not on filedocumented in this encounter Care Teams Wood Preserving Plant Laborer Relationship Specialty Start Date End Date Rosette Ayala MD [address] [facility] [address] [place] [address] PCP - General Family Practice 12/31/23 documented as of this encounter
--- OUTSIDE RECORDS SUMMARY | 2024-07-29 03:31 | XMS_ITS | Encounter Summary ---
Author Organization [facility] Address [address] [place] [address] Care Team Providers Care Maintenance Shop Manager Name Role Phone Rosette Ayala MD Primary Care Provider [phone]- [phone] Encounter Details Date Type Department Care Team (Late Contact Info) Description 05/15/2024 Orders Only [facility] Oncology and Hematology [facility] [address] [place] [address] Zeke Braden MD [address] [place], [place] [address] [address] [place] [phone] Chronic anemia (Primary Dx) Social History Tobacco Use Types Packs/Day Years [...] (Late Contact Info) Description 08/12/2024 11:30 AM MICROFABRICATION ENGINEER MANAGER Office Visit [facility] Oncology and Hematology - [place] [address] [place] [address] Zeke Braden MD [address] [employer] [address] [place] [phone] Scheduled Orders Name Type Priority Associated Diagnoses Orde r Schedule BASIC METABOLIC PANEL Lab Routine Chronic anemia Expected: 05/15/2024, Expires: 05/15/2025 VITAMIN B12 AND FOLATE Lab Routine Chronic anemia Expected: 05/15/2024, Expires: 05/15/2025 CBC WITH DIFFERENTIAL Lab Routine Chronic anemia Expected: 05/15/2024, Expires: 05/15/2025 IRON, TIBC, AND PERCENT SATURATION Lab Routine Chronic anemia Expected: 05/15/2024, Expires: 05/15/2025 FERRITIN Lab Routine Chronic anemia Expected: 05/15/2024, Expires: 05/15/2025 documented as of this encounter Visit Diagnoses Diagnosis Chronic anemia- Primary Anemia, unspecified documented in this encounter Care Teams Maintenance Shop Manager Relationship Specialty Start Date End Date Rosette Ayala MD [address] [facility] [[email or web address] [address] [place] [address] PCP - General Family Practice 12/31/23 documented as of this encounter
--- OUTSIDE RECORDS SUMMARY | 2024-07-29 03:31 | XMS_ITS | Encounter Summary ---
Author Organization [facility] Address [address] [place] [address] Care Team Providers Care Circle Cutting Saw Operator Name Role Phone Rosette Ayala MD Primary Care Provider +1- [phone] Encounter Details Date Type Department Care Team (Late st Contact Info) Description 05/14/2024 4:30 PM CDT Telephone Check Up [facility] Oncology and Hematology - [place] [address] [facility] [address] [place] [address] Zeke Braden MD [address] [facility] [address] [place] [address] Social History Tobacco Use Types Packs/Day [...] on file documented as of this encounter Progress Notes * Zeke Braden MD - 05/14/2024 6:18 PM CDT HEMATOLOGY / ONCOLOGY PROGRESS NOTE Patient Identification: Name: Aric Burch Age: 88 y.o. Sex: male : 1935 DIAGNOSIS Iron deficiency anemia Hyponatremia CURRENT TREATMENT Iron and vitamin B12 once a day TREATMENT HISTORY Iron infusion February 01, 2024 SUBJECTIVE This is a phone visit with patient to discuss the CT scan. He denies any chest pain and shortness of breath. No other new complaints. Review of system Constitutional: Patient did not mention fevers, sweats, denies any tiredness and fatigue, HEENT: Patient did not mention sinus congestion, hearing or vision problems Respiratory: Patient did not mention cough, dyspnea, wheeze Cardiovascular: Patient did not mention chest pain, exertional chest pressure/discomfort, nausea, syncope, shortness of breath GI: Patient did not mention constipation, diarrhea, dsyphagia, reflux symptoms, vomiting, melena : Patient did not mention dysuria, frequency, incontinence, urgency Integumentary system: no lymphadenopathy, sweats, flushing Musculoskeletal: Patient not mention: myalgia, arthralgia Neurological: Patient did not mention blurry or disturbed vision, numbness/weakness, dizziness Skin: No lumps, bumps or rashes. 12 point review of system was reviewed Objective: Vital signs in last 24 hours: As per nursing note Exam: This is a phone visit [facility] Labs from April 02 showed WBC 4.6 hemoglobin 11.1 platelet 181,000 sodium 126 creatinine 1.1 B12 424 iron 40 saturation 22% ferritin 70 @IMAGEIMP@ Assessment: Plan: There are no problems to display for this patient. Iron deficiency anemia. Labs showed improvement in hemoglobin after iron infusion. He will continueoral iron once a day and will start vitamin B12 500 mcg daily. Weight loss. See T scan chest abdomen pelvis was performed due to shortness of breath and weight loss came back normal except mild emphysema and a small left- sided pleural effusion. CT scan was done on May 08, 2024. I plan to see him back in 4 months with repeat labs. Hypertension. Stable. Atrial fibrillation. He will follow-up with the resident care supervisor. 05/14/2024 Zeke Braden MD This encounter was completed via audio-only two way synchronous communication. Patient's identity confirmed yes Patient gave verbal consent to have these services billed to their insurance and expressed understanding that co-insurance and deductible may apply: yes Time spent by the provider delivering the care documented in this encounter 20 minutes. documented in this encounter Plan of Treatment Upcoming Encounters Date Type Department Care Team (Late st Contact Info) Description 08/12/2024 11:30 AM SOLUTION DESIGNER Office Visit [facility] Oncology and Hematology - Anthony [facility] [address] [place] [address] Zeke Braden MD [address] [facility] [address] [place] [address] documented as of this encounter Visit Diagnoses Not on filedocumented in this encounter Care Teams Circle Cutting Saw Operator Relationship Specialty Start Date End Date Rosette Ayala MD [address] [facility] [address] [place] [address] PCP - General Family Practice 12/31/23 documented as of this encounter
--- OUTSIDE RECORDS SUMMARY | 2024-07-29 03:31 | XMS_ITS | Clinical Summary ---
Author Organization [facility] Jaimee law Ant Address [address] [place] [address] Care Team Providers Care Animal Cruelty Investigator Name Role Phone Rosette Ayala MD Primary Care Provider +1- [phone] Allergies Active Allergy Reactions Criticality Noted Date Comments Lisinopril Cough Low 06/20/2001 Prednisone Anxiety Low 01/07/2024 Medications Medication Sig Dispensed Refills Start Date End Date Status diltiaZEM (CARDIZEM CD) 240 mg Controlled Delivery 24 hour capsule Take 240 mg by mouth daily. Active metoprolol tartrate (LOPRESSOR) 50 mg tablet Take 50 mg by mouth 2 times daily. Active cyanocobalamin 1,000 mcg Tablet Take 1,000 mcg by mouth daily. Active fish oil-omega-3 fatty acids 340-1,000 mg Capsule Take 1 Capsule by mouth daily. Active finasteride (PROSCAR) 5 mg tablet Take 5 mg by mouth daily. Active vits A,C,E/zinc/copper (VISION-ESTELA PRESERVE ORAL) Take by mouth 2 times daily. Active azelastine (ASTELIN) 137 mcg/actuation nasal spray Administer 2 Sprays in each nostril 2 times daily. Active polysaccharide iron complex (FERREX 150,IFEREX 150) 150 mg iron capsule Take 150 mg by mouth 2 times daily. Active hydrALAZINE (APRESOLINE) 100 mg Tablet tablet Take 100 mg by mouth. Active Active Problems No known active problems Encounters Date Type Department Care Team Description 07/24/2024 Telephone [facility] Oncology and Hematology - [place] [address] [place] [address] Zeke Braden MD Lab Results 07/23/2024 Abstract [facility]ology [place] [address] [place] [address] Zeke Braden MD 05/15/2024 Orders Only [facility] Oncology and Hematology - [place] [address] [place] [address] Zeke Braden MD Chronic anemia (Primary Dx) 05/14/2024 4:30 PM CDT Telephone Check Up [facility] Oncology and Hematology - [place] [address] [place] [address] Zeke Braden MD 05/09/2024 Orders Only [facility] Oncology and Hematology - [place] [address] [place] [address] Zeke Braedn MD 05/08/2024 Orders Only [facility] Oncology and Hematology - [place] [address] [place] [address] Zeke Braden MD from Last 3 Months Family History Medical History Relation Name Comments Leukemia Father Colon Cancer Mother Diabetes Sister 1 Diabetes Sister 2 SLE Sister 2 Diabetes Sister 3 Relation Name Status Comments Father Mother Sister 1 Sister 2 Sister 3 Social History Tobacco Use Types Packs/Day Years Used Date Smoking Tobacco: Former Cigarettes 1 30 0 07/16/1970 - 07/16/2000 Smokeless Tobacco: Never Alcohol Use Standard Drinks/Week Comments Not Currently 0 (1 standard drink = 0.6 oz pur e alcohol) Socially Sex and Gender Information Value Date Recorded Sex Assigned at Not on file Gender Identity Not on file Sexual Orientation Not on file Last Filed Vital Signs Vital Sign Reading Time Taken Comments Blood Pressure 175/64 04/09/2024 1:04 PM CDT Pulse 69 04/09/2024 1:01 PM CDT Temperature 36.7 ??C (98 ??F) 04/09/2024 1:01 PM CDT Respiratory Rate 15 04/09/2024 1:01 PM CDT Oxygen Saturation 96% 04/09/2024 1:01 PM CDT Inhaled Oxygen Concentration - - Weight 70.4 kg (155 lb 3.2 oz) 04/09/2024 1:01 P M CDT Height 185.4 cm (6' 1 ) 01/07/2024 10:35 AM CDT Body Mass Index 20.48 01/07/2024 10:35 AM CDT Plan of Treatment Upcoming Encounters Date Type Department Care Team (Late st Contact Info) Description 08/12/2024 11:30 AM EXPERIMENTAL MECHANIC Office Visit [facility] Oncology and Hematology - [place] [address] [facility] [address] [place] [address] Zeke Braden MD [address] [facility] [address] [place] [address] Health Maintenance Due Date Last Done Comments ZOSTER VACCINE (2 of 3) 10/09/2008 08/14/2008 RSV VACCINE (60+ or ) (1 - 1-dose 75+ series) 2009 INFLUENZA VACCINE (#1) 2024 8, 06/06/2017, 06/06/2016, Additional history exists DTAP/TDAP/TD VACCINES (2 - T d or Tdap) 05/11/2025 05/11/2015, 03/28/2005 PNEUMOCOCCAL VACCINE 65+ YEARS Completed 1 08/06/2016, 08/19/2015, 11/01/1999 Procedures Procedure Name Priority Date/Time Associated Diagnosis Comments CT CHEST ABDOMEN PELVIS W CONT Routine 05/08/2024 2:08 PM CDT CREATININE Routine 05/08/2024 12:07 PM CDT from Last 3 Months Results * CT CHEST ABDOMEN PELVIS W CONT (05/08/2024 2:08 PM CDT) Anatomical Region Laterality Modality Chest Other Zeke Braden MD CT ORDERABLES * CREATININE (05/08/2024 12:07 PM CDT) Blood Zeke Braden MD CHEMISTRY ORDERABLES from Last 3 Months Care Teams Animal Cruelty Investigator Relationship Specialty Start Date End Date Rosette Ayala MD [address] [facility] [address] [place] [address] PCP - General Family Practice 12/31/23
--- OUTSIDE RECORDS SUMMARY | 2024-07-29 03:32 | XMS_ITS | Encounter Summary ---
Author Organization [facility] [employer] Address [address] [place] [address] Care Team Providers Care Meter Reader Inspector Name Role Phone Rosette Ayala MD Primary Care Provider +1- [phone] Reason for Visit * Reason Onset Date Comments Lab Results 01/08/2024 Encounter Details Date Type Department Care Team (Late st Contact Info) Description 01/08/2024 Telephone [facility] Oncology and Hematology - [place] [address] [place] [address] Kylee Beltre FNP [address] [facility] [address] [place] [address] Lab Results Social History Tobacco Use Types Packs/Day Years [...] on file documented as of this encounter Miscellaneous Notes * Telephone Encounter - Melissa Abraham - 01/08/2024 9:34 AM CDT Patient aware of recommendations. He will continue the oral iron and wait for infusions phone call. * Telephone Encounter - Melissa Abraham - 01/08/2024 9:34 AM CDT ----- Message from GT Charles sent at 01/08/2024 9:22 AM CDT ----- Can we prereg for iron infusion? Also call and let him know that his iron is still low and I would like to give him an infusion. Continue oral iron twice daily. documented in this encounter Plan of Treatment Upcoming Encounters Date Type Department Care Team (Late st Contact Info) Description 08/12/2024 11:30 AM DIGITAL MEDIA SALES CONSULTANT Office Visit [facility]3] Oncology and Hematology - [place] [address] [facility] 200 [place] [address] Zeke Braden MD [address] [facility] [address] [place] [address] documented as of this encounter Visit Diagnoses Not on filedocumented in this encounter Care Teams Meter Reader Inspector Relationship Specialty Start Date End Date Rosette Ayala MD [address] [place] [address] PCP - General Family Practice 12/31/23 documented as of this encounter
--- OUTSIDE RECORDS SUMMARY | 2024-07-29 03:32 | XMS_ITS | Encounter Summary ---
Author Organization [facility] Address [address] [place] [address] Care Team Providers Care Pipelines Superintendent Name Role Phone Rosette Ayala MD Primary Care Provider +1- [phone] Encounter Details Date Type Department Care Team (Late st Contact Info) Description 03/06/2024 External Device Data STL ABSTRACTION Provider, Abstract NO ADDRESS ON FILE Social History Tobacco Use Types Packs/Day Years [...] st Contact Info) Description 08/12/2024 11:30 AM HAZARDOUS MATERIAL TECHNICIAN Office Visit [facility] Oncology and Hematology - [place] [address] [facility] 200 [place] [address] [place] [address] [place] [address] [address] [place] [address] documented as of this encounter Visit Diagnoses Not on filedocumented in this encounter Care Teams Pipelines Superintendent Relationship Specialty Start Date End Date Rosette Ayala MD [address] [facility] [address] [place] [address] PCP - General Family Practice 12/31/23 documented as of this encounter
--- OUTSIDE RECORDS SUMMARY | 2024-07-29 03:32 | XMS_ITS | Encounter Summary ---
Author Organization [facility] Address [address] [place] [address] Care Team Providers Care Embossing Press Operator Apprentice Name Role Phone Rosette Ayala MD Primary Care Provider +1- [phone] Encounter Details Date Type Department Care Team [...] st Contact Info) Description 08/12/2024 11:30 AM GRISTMILL OPERATOR Office Visit [facility] Oncology and Hematology - [place] [address] [facility] 200 [place] [address] [place] [address] [place] [address] [address] [place] [address] documented as of this encounter Visit Diagnoses Not on filedocumented in this encounter Care Teams Embossing Press Operator Apprentice Relationship Specialty Start Date End Date Rosette Ayala MD [address] [facility] 120 [place] [address] PCP - General Family Practice 12/31/23 documented as of this encounter
--- OUTSIDE RECORDS SUMMARY | 2024-07-29 03:32 | XMS_ITS | Encounter Summary ---
Author Organization [facility] [employer] Address [address] [place] [address] Care Team Providers Care Reinspector Name Role Phone Rosette Ayala MD Primary Care Provider +1- [phone] Encounter Details Date Type Department Care Team (Late Contact Info) Description 05/08/[address] [facility] Oncology [facility] Hematology [facility] [address] [place] [address] Zeke Braden MD [address] [address] [place] [address] Social History Tobacco Use Types Packs/Day [...] (Late Contact Info) Description 08/12/2024 11:30 AM PLUMBING TECHNICIAN Office Visit [facility] Oncology and Hematology [place] [address] [place] [address] Zeke Braden MD [address] [employer] [address] [place] [address] documented as of this encounter Procedures Procedure Name Priority Date/Time Associated Diagnosis Comments CT CHEST ABDOMEN PELVIS W CONT Routine 05/08/2024 2:08 PM CDT documented in this encounter Results * CT CHEST ABDOMEN PELVIS W CONT (05/08/2024 2:08 PM CDT) Anatomical Region Laterality Modality Chest Other Zeke Braden MD CT ORDERABLES documented in this encounter Visit Diagnoses Not on filedocumented in this encounter Care Teams Reinspector Relationship Specialty Start Date End Date Rosette Ayala MD [address] [facility] 120 [place] [address] PCP - General Family Practice 12/31/23 documented as of this encounter
--- OUTSIDE RECORDS SUMMARY | 2024-07-29 03:32 | XMS_ITS | Encounter Summary ---
Author Organization [facility] Address [address] [place] [address] Care Team Providers Care Resistor Testing Machine Operator Name Role Phone Rosette Ayala MD Primary Care Provider +1- [phone] Encounter Details Date Type Department Care Team [...] st Contact Info) Description 08/12/2024 11:30 AM NUT STEAMER Office Visit [facility] Oncology and Hematology - [place] [address] [facility] 200 [place] [address] [place] [address] [place] [address] [address] [place] [address] documented as of this encounter Visit Diagnoses Not on filedocumented in this encounter Care Teams Resistor Testing Machine Operator Relationship Specialty Start Date End Date Rosette Ayala MD [address] [facility] 120 [place] [address] PCP - General Family Practice 12/31/23 documented as of this encounter
--- OUTSIDE RECORDS SUMMARY | 2024-07-29 03:32 | XMS_ITS | Encounter Summary ---
Author Organization [facility] Address [address] [place] [address] Care Team Providers Care Commercial Painter Name Role Phone Rosette Ayala MD Primary Care Provider +1- [phone] Encounter Details Date Type Department Care Team (Late st Contact Info) Description 03/11/2024 External Device Data STL ABSTRACTION Provider, Abstract [...] st Contact Info) Description 08/12/2024 11:30 AM AUTOGRAPHER Office Visit [facility] Oncology and Hematology - [place] [address] [facility] 200 [place] [address] [place] [address] [place] [address] [address] [place] [address] documented as of this encounter Visit Diagnoses Not on filedocumented in this encounter Care Teams Commercial Painter Relationship Specialty Start Date End Date Rosette Ayala MD [address] [facility] 120 [place] [address] PCP - General Family Practice 12/31/23 documented as of this encounter
--- OUTSIDE RECORDS SUMMARY | 2024-07-29 03:32 | XMS_ITS | Encounter Summary ---
Author Organization [facility] Address [address] [place] [address] Care Team Providers Care Customer Engineering Specialist Name Role Phone Rosette Ayala MD Primary Care Provider +1- [phone] Reason for Referral * CT Scan (Routine) - Closed Specialty Diagnoses / Procedures Referred By Compa pettit Referred To Contact Diagnoses Abnormal weight loss Procedures CT CHEST ABDOMEN PELVIS W Zeke [place] MD [address] [place] [address] [place] [address] Referral ID Status Reason Start Date Expiration Date V isits Requested Visits Authorized [id number] Closed ST[facility] CTS 04/09/2024 05/10/2025 1 1 Reason for Visit * Reason Comments Follow Up Encounter Details Date Type Department Care Team (Late st Contact Info) Description 04/09/2024 1:00 PM CDT Office Visit [facility] Oncology and Hematology [facility] [address] [address] [address] Zeke Braden MD [address] [place] [address] Iron deficiency anemia, unspecified iron deficiency anemia type (Primary Dx); Chronic anemia; Abnormal weight loss Social History Tobacco Use Types Packs/Day Years [...] on file documented as of this encounter Last Filed Vital Signs Vital Sign Reading [...] oz) 04/09/2024 1:01 P M CDT Height - - Body Mass Index 20.48 01/07/2024 10:35 AM CDT documented in this encounter Progress Notes * Zeke Braden MD - 04/09/2024 1:55 PM CDT HEMATOLOGY / ONCOLOGY PROGRESS NOTE Patient Identification: Name: Aric Burch Age: 88 y.o. Sex: male : 1935 DIAGNOSIS Iron deficiency anemia Hyponatremia CURRENT TREATMENT Iron and vitamin B12 once a day TREATMENT HISTORY Iron infusion February 01, 2024 SUBJECTIVE Patient came to the office for follow-up visit. He is feeling better but remains tired and fatigued. Denies any bleeding and bruising. He has lost 20 pound weight in last 6 months duration. He is complaining of shortness of breath as well. No other new complaint. Review of system Constitutional: Patient did not mention fevers, sweats, improvement tiredness and fatigue, 20 poundweight loss previously. HEENT: Patient did not mention sinus congestion, [...] 24 hours: As per nursing note Exam: General appearance: alert, cooperative, no distress, appears stated age Head: normocephalic, without obvious abnormality, atraumatic Eyes: conjunctivae/corneas clear, EOM's intact Ears: normal external ear canals AU Nose: Nares normal. Septum midline. Mucosa normal. No drainage or sinus tenderness Throat: Lips, mucosa, and tongue normal. Teeth and gums normal Neck: supple, symmetrical, trachea midline. Lungs: clear to auscultation bilaterally Heart: regular rate and rhythm, S1, S2 normal, no murmur, click, rub or gallop Abdomen: soft, non-tender. Bowel sounds normal. No masses, No organomegaly Extremities: extremities normal, atraumatic, no cyanosis or edema Skin: Skin color, texture, turgor normal. No rashes or lesions Lymph nodes: No lymphadenopathy Neuro: No obvious focal deficit PATH LABS Labs from April 02 showed [...] vitamin B12 500 mcg daily. Weight loss. Patient also has hyponatremia and shortness of breath. There is a concern about malignancy. Will order CT chest abdomen pelvis and discussed that in 1 week. Atrial fibrillation. Patient will follow-up with the tug master. Hypertension. Stable. Follow-up with labs in 4 months ? TOBACCO COUNSELING He is not a tobacco/nicotine user. 04/09/2024 Zeke Braden MD documented in this encounter Plan of Treatment Upcoming Encounters Date Type Department Care Team (Late st Contact Info) Description 08/12/2024 11:30 AM FIRE FIGHTING EQUIPMENT SPECIALIST Office Visit [facility] Oncology and Hematology - [place] [address] [facility] [address] [place] [address] Zeke Braden MD [address] [facility] [address] [place] [address] Scheduled Orders Name Type Priority Associated Diagnoses Orde r Schedule CBC WITH DIFFERENTIAL Lab Stat Chronic anemia Expected: 07/30/2024, Expires: 04/09/2025 FERRITIN Lab Routine Chronic anemia Expected: 07/30/2024, Expires: 04/09/2025 IRON, TIBC, AND PERCENT SATURATION Lab Routine Chronic anemia Expected: 07/30/2024, Expires: 04/09/2025 VITAMIN B12 AND FOLATE Lab Routine Chronic anemia Expected: 07/30/2024, Expires: 04/09/2025 BASIC METABOLIC PANEL Lab Stat Chronic anemia Expected: 07/30/2024, Expires: 04/09/2025 CT CHEST ABDOMEN PELVIS W CONT Imaging Routine Abnormal weight loss Expected: 04/10/2024, Expires: 04/09/2025 documented as of this encounter Visit Diagnoses Diagnosis Iron deficiency anemia, unspecified iron deficiency anemia type- Primary Chronic anemia Anemia, unspecified Abnormal weight loss Loss of weight documented in this encounter Care Teams Customer Engineering Specialist Relationship Specialty Start Date End Date Rosette Ayala MD [address] [facility] 120 [place] [address] PCP - General Family Practice 12/31/23 documented as of this encounter
--- OUTSIDE RECORDS SUMMARY | 2024-07-29 03:32 | XMS_ITS | Encounter Summary ---
Author Organization [facility] Address [address] [place] [address] Care Team Providers Care Stone Dresser Name Role Phone Rosette Ayala MD Primary Care Provider +1- [phone] Encounter Details Date Type Department Care Team (Late st Contact Info) Description 03/12/2024 External Device Data STL ABSTRACTION Provider, Abstract [...] st Contact Info) Description 08/12/2024 11:30 AM MEDICAL AFFAIRS LEADER Office Visit [facility] Oncology and Hematology - [place] [address] [facility] 200 [place] [address] [place] [address] [place] [address] [address] [place] [address] documented as of this encounter Visit Diagnoses Not on filedocumented in this encounter Care Teams Stone Dresser Relationship Specialty Start Date End Date Rosette Ayala MD [address] [facility] 120 [place] [address] PCP - General Family Practice 12/31/23 documented as of this encounter
--- OUTSIDE RECORDS SUMMARY | 2024-07-29 03:32 | XMS_ITS | Encounter Summary ---
Author Organization [facility] Address [address] [place] [address] Care Team Providers Care Guard Museum Name Role Phone Rosette Ayala MD Primary Care Provider +1- [phone] Encounter Details Date Type Department Care Team (Late st Contact Info) Description 01/08/2024 External Device Data STL ABSTRACTION Provider, Abstract [...] st Contact Info) Description 08/12/2024 11:30 AM SAFETY FIRE BOSS Office Visit [facility] Oncology and Hematology - [place] 222 [facility] 200 [place] [address] [place] [address] [place] [address] [address] [place] [address] documented as of this encounter Visit Diagnoses Not on filedocumented in this encounter Care Teams Guard Museum Relationship Specialty Start Date End Date Rosette Ayala MD [address] [facility] 120 [place] [address] PCP - General Family Practice 12/31/23 documented as of this encounter
--- OUTSIDE RECORDS SUMMARY | 2024-07-29 03:32 | XMS_ITS | Encounter Summary ---
Author Organization [facility] Address [address] [place] [address] Care Team Providers Care Furnace Operator Oil Or Gas Name Role Phone Rosette Ayala MD Primary Care Provider +1- [phone] Encounter Details Date Type Department Care Team [...] st Contact Info) Description 08/12/2024 11:30 AM FLATBED COMPANY DRIVER Office Visit [facility] Oncology and Hematology - [place] [address] [facility] 200 [place] [address] [place] [address] [place] [address] [address] [place] [address] documented as of this encounter Visit Diagnoses Not on filedocumented in this encounter Care Teams Furnace Operator Oil Or Gas Relationship Specialty Start Date End Date Rosette Ayala MD [address] [facility] [address] [place] [address] PCP - General Family Practice 12/31/23 documented as of this encounter
--- OUTSIDE RECORDS SUMMARY | 2024-07-29 03:32 | XMS_ITS | Encounter Summary ---
Author Organization [facility] Address [address] [place] [address] Care Team Providers Care Support Services Rep Name Role Phone Rosette Ayala MD Primary Care Provider +1- [phone] Encounter Details Date Type Department Care Team (Late st Contact Info) Description 01/29/2024 External Device Data STL ABSTRACTION Provider, Abstract [...] st Contact Info) Description 08/12/2024 11:30 AM ELECTRONICS DEPARTMENT MANAGER Office Visit [facility] Oncology and Hematology - [place] [address] [facility] 200 [place] [address] [place] [address] [place] [address] [address] [place] [address] documented as of this encounter Visit Diagnoses Not on filedocumented in this encounter Care Teams Support Services Rep Relationship Specialty Start Date End Date Rosette Ayala MD [address] [facility] 120 [place] [address] PCP - General Family Practice 12/31/23 documented as of this encounter
--- OUTSIDE RECORDS SUMMARY | 2024-07-29 03:32 | XMS_ITS | Encounter Summary ---
Author Organization [facility] Address [address] [place] [address] Care Team Providers Care Nurse Administrator Name Role Phone Rosette Ayala MD Primary Care Provider +1- [phone] Encounter Details Date Type Department Care Team (Late st Contact Info) Description 02/26/2024 External Device Data STL ABSTRACTION Provider, Abstract [...] st Contact Info) Description 08/12/2024 11:30 AM ASSEMBLER BICYCLE Office Visit [facility] Oncology and Hematology - [place] [address] [facility] 200 [place] [address] [place] [address] [place] [address] [address] [place] [address] documented as of this encounter Visit Diagnoses Not on filedocumented in this encounter Care Teams Nurse Administrator Relationship Specialty Start Date End Date Rosette Ayala MD [address] [facility] 120 [place] [address] PCP - General Family Practice 12/31/23 documented as of this encounter
--- OUTSIDE RECORDS SUMMARY | 2024-07-29 03:32 | XMS_ITS | Encounter Summary ---
Author Organization [facility] Address [address] [place] [address] Care Team Providers Care Funding Analyst Name Role Phone Rosette Ayala MD Primary Care Provider +1- [phone] Encounter Details Date Type Department Care Team [...] st Contact Info) Description 08/12/2024 11:30 AM DIAMOND MERCHANT Office Visit [facility] Oncology and Hematology - [place] [address] [facility] 200 [place] [address] [place] [address] [place] [address] [address] [place] [address] documented as of this encounter Visit Diagnoses Not on filedocumented in this encounter Care Teams Funding Analyst Relationship Specialty Start Date End Date Rosette Ayala MD [address] [facility] [address] [place] [address] PCP - General Family Practice 12/31/23 documented as of this encounter
--- OUTSIDE RECORDS SUMMARY | 2024-07-29 03:32 | XMS_ITS | Encounter Summary ---
Author Organization [facility] Address [address] [place] [address] Care Team Providers Care Inspector Exhaust Emissions Name Role Phone Rosette Ayala MD Primary Care Provider +1- [phone] Encounter Details Date Type Department Care Team (Late st Contact Info) Description 04/01/2024 External Device Data STL ABSTRACTION Provider, Abstract [...] st Contact Info) Description 08/12/2024 11:30 AM MOLDER INFLATED BALL Office Visit [facility] Oncology and Hematology - [place] 222 [facility] 200 [place] [address] [place] [address] [place] [address] [address] [place] [address] documented as of this encounter Visit Diagnoses Not on filedocumented in this encounter Care Teams Inspector Exhaust Emissions Relationship Specialty Start Date End Date Rosette Ayala MD [address] [facility] 120 [place] [address] PCP - General Family Practice 12/31/23 documented as of this encounter
--- OUTSIDE RECORDS SUMMARY | 2024-07-29 03:32 | XMS_ITS | Encounter Summary ---
Author Organization [facility] [employer] Address [address] [place] [address] Care Team Providers Care Molding Associate Name Role Phone Rosette Ayala MD Primary Care Provider +1- [phone] Encounter Details Date Type Department Care Team (Late Contact Info) Description 01/14/2024 Orders Only [facility] Oncology and Hematology [facility] [address] [place] [address] Kylee Beltre FNP [address] [address] Social History Tobacco Use Types Packs/Day Years [...] (Late Contact Info) Description 08/12/2024 11:30 AM DE ICER FINISHER Office Visit [facility] Oncology and Hematology - [place] [address] [place] [address] [place] [address] [place] [address] [address] [place] [address] documented as of this encounter Procedures Procedure Name Priority Date/Time Associated Diagnosis Comments METHYLMALONIC ACID Routine 01/07/2024 9:56 AM CDT documented in this encounter Results * METHYLMALONIC ACID (01/07/2024 9:56 AM CDT) Blood Kylee Beltre SURFACE TO AIR WEAPONS OFFICER CHEMISTRY ORDERABLES documented in this encounter Visit Diagnoses Not on filedocumented in this encounter Care Teams Molding Associate Relationship Specialty Start Date End Date Rosette Ayala MD [address] [facility] 120 [place] [address] PCP - General Family Practice 12/31/23 documented as of this encounter
--- OUTSIDE RECORDS SUMMARY | 2024-07-29 03:32 | XMS_ITS | Encounter Summary ---
Author Organization [facility]On[facility] Address [address] [place] [address] Care Team Providers Care Eddy Current Inspector Name Role Phone Rosette Ayala MD Primary Care Provider +1- [phone] Encounter Details Date Type Department Care Team (Late Contact Info) Description 04/03/2024 Orders Only [facility] Oncology counts include [facility] beds at [facility] Hematology [facility] [address] [place] [address] Zeke Braden MD 222[facility] [address] [place] [address] Social History Tobacco Use Types Packs/Day [...] (Late Contact Info) Description 08/12/2024 11:30 AM AOC DIRECTOR INTELLIGENCE OFFICER Office Visit [facility] Oncology and Hematology [place] [address] [place] [address] Zeke Braden MD [address] [place] [address] documented as of this encounter Procedures Procedure Name Priority Date/Time Associated Diagnosis Comments CBC WITH DIFFERENTIAL Routine 04/03/2024 10:43 AM CDT documented in this encounter Results * CBC WITH DIFFERENTIAL (04/03/2024 10:43 AM CDT) Blood Zeke Braden MD HEMATOLOGY ORDERABLE S documented in this encounter Visit Diagnoses Not on filedocumented in this encounter Care Teams Eddy Current Inspector Relationship Specialty Start Date End Date Rosette Ayala MD [address] [facility] 120 [place] [address] PCP - General Family Practice 12/31/23 documented as of this encounter
--- OUTSIDE RECORDS SUMMARY | 2024-07-29 03:32 | XMS_ITS | Encounter Summary ---
Author Organization [facility] Address [address] [place] [address] Care Team Providers Care Grinding Wheel Dresser Name Role Phone Rosette Ayala MD Primary Care Provider +1- [phone] Encounter Details Date Type Department Care Team [...] st Contact Info) Description 08/12/2024 11:30 AM IT DATA ARCHITECT Office Visit [facility] Oncology and Hematology - [place] 222 [facility] 200 [place] [address] [place] [address] [place] [address] [address] [place] [address] documented as of this encounter Visit Diagnoses Not on filedocumented in this encounter Care Teams Grinding Wheel Dresser Relationship Specialty Start Date End Date Rosette Ayala MD [address] [facility] 120 [place] [address] PCP - General Family Practice 12/31/23 documented as of this encounter
--- OUTSIDE RECORDS SUMMARY | 2024-07-29 03:32 | XMS_ITS | Encounter Summary ---
Author Organization [facility] CARRIE Quinones [facility] Address [address] [place] [address] Care Team Providers Care Uniform Cap Operator Name Role Phone Rosette Ayala MD Primary Care Provider +1- [phone] Reason for Visit * Reason Comments Establish Care Encounter Details Date Type Department Care Team (Late st Contact Info) Description 01/07/2024 10:30 AM CDT Office Visit [facility] Oncology and Hematology - [place] [address] [place] [address] Kylee Beltre FNP 321 [facility] 100 [place] [address] Iron deficiency anemia, unspecified iron deficiency anemia type (Primary Dx); Vitamin D deficiency Social History Tobacco Use Types Packs/Day Years Used Date Smoking Tobacco: Former Cigarettes 1 30 0 07/16/1970 - 07/16/2000 Smokeless Tobacco: Never Tobacco Cessation:Counseling Given: Not Answered Alcohol Use Standard Drinks/Week Comments Not Currently 0 (1 standard drink = 0.6 oz pur e alcohol) Socially Sex and Gender Information Value Date Recorded Sex Assigned at Not on file Gender Identity Not on file Sexual Orientation Not on file documented as of this encounter Last Filed Vital Signs Vital Sign Reading Time Taken Comments Blood Pressure 172/60 01/07/2024 10:43 AM CDT Pulse 63 01/07/2024 10:35 AM CDT Temperature 36.4 ??C (97.6 ??F) 01/07/2024 10:35 AM C DT Respiratory Rate 15 01/07/2024 10:35 AM CDT Oxygen Saturation 95% 01/07/2024 10:35 AM CDT Inhaled Oxygen Concentration - - Weight 71.5 kg (157 lb 9.6 oz) 01/07/2024 10:35 AM CDT Height 185.4 cm (6' 1 ) 01/07/2024 10:35 AM CDT Body Mass Index 20.79 01/07/2024 10:35 AM CDT documented in this encounter Patient Instructions * Attachments The following attachments cannot be sent through Care Everywhere. * Iron-Rich Diet (Divehi) * Iron Supplements: General Info (Divehi) documented in this encounter Progress Notes * Kylee Beltre FNP - 01/07/2024 11:58 AM CDT Hematology / Oncology Consult Note Requesting Physician: Darcy Scott PA-C Primary Care Physician: Rosette Ayala MD Problem List There is no problem list on file for this patient. Previous Treatment ? Measurable Disease ? Reason for Visit: Aric Burch is a 88 y.o. male who was referred for consultation for iron deficiency anemia History of Present Illness: Aric Burch is a 88 y.o. male with a past medical history of HTN, neurogenic bladder, COPD, B12 deficiency, BPH, AFIB. consulted for iron deficiency anemia. He was seen in the ED 12/10 for dyspnea and weakness. He was found to have decreased hgb and iron studies. He reports that has has been taking iron pills for 30+ years for anemia. He received iron infusion x3 during admission. He reports a past colonoscopy but unsure when. Occult stool was negative while admitted. He reports a poor appetite with a decreased meat intake. He donated blood years ago. He denies any constipation, n/v/d, or kidney disease. Reports fatigue, shortness of breath, and occasional lightheadedness. He reports his fa ther having Leukemia and his mother colon cancer. He denies any personal history of malignancy. Past Medical History Past Medical History: Diagnosis Date Asthma Emphysema of lung Hyperlipidemia Hypertension Surgical History Past Surgical History: Procedure Laterality Date HX HERNIA REPAIR Medications Current Outpatient Medications Medication Sig Dispense Refill diltiaZEM (CARDIZEM CD) 240 mg Controlled Delivery 24 hour capsule Take 240 mg by mouth daily. metoprolol tartrate (LOPRESSOR) 50 mg tablet Take 50 mg by mouth 2 times daily. cyanocobalamin 1,000 mcg Tablet Take 1,000 mcg by mouth daily. fish oil-omega-3 fatty acids 340-1,000 mg Capsule Take 1 Capsule by mouth daily. finasteride (PROSCAR) 5 mg tablet Take 5 mg by mouth daily. vits A,C,E/zinc/copper (VISION-ESTELA PRESERVE ORAL) Take by mouth 2 times daily. azelastine (ASTELIN) 137 mcg/actuation nasal spray Administer 2 Sprays in each nostril 2 times daily. polysaccharide iron complex (FERREX 150,IFEREX 150) 150 mg iron capsule Take 150 mg by mouth 2 times daily. hydroCHLOROthiazide 25 mg tablet Take 25 mg by mouth daily. hydrALAZINE (APRESOLINE) 100 mg Tablet tablet Take 100 mg by mouth. No current facility-administered medications for this visit. Allergies Allergies Allergen Reactions Lisinopril Cough Prednisone Anxiety Immunizations: There is no immunization history on file for this patient. Family History: Family History Problem Relation Name Age of Onset Leukemia Father Colon Cancer Mother Diabetes Sister SLE Sister Diabetes Sister Diabetes Sister Social History: Social History Tobacco Use Smoking status: Former Current packs/day: 0.00 Average packs/day: 1 pack/day for 30.0 years (30.0 ttl pk-yrs) Types: Cigarettes Start date: 07/16/1970 Quit date: 07/16/2000 Years since quittin.4 Smokeless tobacco: Never Substance Use Topics Alcohol use: Not Currently Comment: Socially Tobacco Counseling: He is not a tobacco/nicotine user. Review of Systems All systems reviewed & are unremarkable except as noted in HPI and above Physical Exam Vitals reviewed. Constitutional: General: He is awake. Appearance: Normal appearance. He is normal weight. HENT: Head: Normocephalic and atraumatic. Mouth/Throat: Mouth: Mucous membranes are moist. Pharynx: Oropharynx is clear. Eyes: Pupils: Pupils are equal, round, and reactive to light. Cardiovascular: Rate and Rhythm: Normal rate and regular rhythm. Pulses: Normal pulses. Heart sounds: Normal heart sounds. Pulmonary: Effort: Pulmonary effort is normal. Breath sounds: Normal breath sounds. Abdominal: General: Abdomen is flat. Bowel sounds are normal. Palpations: Abdomen is soft. There is no hepatomegaly or splenomegaly. Musculoskeletal: General: Normal range of motion. Cervical back: Normal range of motion. Skin: General: Skin is warm and dry. Neurological: General: No focal deficit present. Mental Status: He is alert and oriented to person, place, and time. ? Labs: 12/10 iron 15, % sat 6 B12 619 12/16/23 WBC 7.9, Hgb 7.8, Hct 25 Plt 257, 12/23 Hgb 9.5 Pathology ? Imaging & Other Studies Performance Status? Assessment / Plan: Iron Deficiency Anemia Patient reports longstanding anemia history while taking iron supplements. I have discussed the differential diagnoses of anemia likely being due to blood loss, nutritional deficiencies, malabsorption, diet, and the possibility of underlying bone marrow disorders as his father had Leukemia. I have discussed continuing iron supplement twice a day at this time. I will repeat CBC, CMP, iron studies,B12, ferritin, STR, and MMA. No need for GI consult at this time. Afib Patient is on Metop, Diltiazem, Not on AC d/t anemia Hypertension Patient is on HCTZ and Hydralazine BPH Patient is on Finasteride Follow up in 3 months GT Charles-C, 01/07/2024 11:59 AM Hematology Oncology Nurse Practitioner [facility] On the day of this visit, I spent 42 minutes providing care to this patient including Preparing to see the patient, Obtaining and/or reviewing separately obtained history, Counseling and educating the patient/family/caregiver, Ordering medications, tests or procedures, and Documenting clinical information in the medical record This patient's plan of care has been reviewed and approved by collaborating physician, Dr. Zeke Braden. If you have any questions regarding this hematology or oncology evaluation, feel free to contact us for further assistance. Thank you for allowing us to be a part of this patient's care. CC: Rosette Ayala MD documented in this encounter Plan of Treatment Upcoming Encounters Date Type Department Care Team (Late st Contact Info) Description 08/12/2024 11:30 AM ROLLER BEARING INSPECTOR Office Visit [facility] Oncology and Hematology [facility] [address] [place] [address] Zeke Braden MD [address] [facility] [address] [place] [address] Scheduled Orders Name Type Priority Associated Diagnoses Orde r Schedule CBC WITH DIFFERENTIAL Lab Routine Iron deficiency anemia, unspecified iron deficiency anemia type Expected: 01/07/2024, Expires: 01/06/2025 COMPREHENSIVE METABOLIC PANEL Lab Routine Iron deficiency anemia, unspecified iron deficiency anemia type Expected: 01/07/2024, Expires: 01/06/2025 FERRITIN Lab Routine Iron deficiency anemia, unspecified iron deficiency anemia type Expected: 01/07/2024, Expires: 01/06/2025 IRON, TIBC, AND PERCENT SATURATION Lab Routine Iron deficiency anemia, unspecified iron deficiency anemia type Expected: 01/07/2024, Expires: 01/06/2025 TRANSFERRIN RECEPTOR TFR SOLUBLE Lab Routine Iron deficiency anemia, unspecified iron deficiency anemia type Expected: 01/07/2024, Expires: 01/06/2025 METHYLMALONIC ACID Lab Routine Iron deficiency anemia, unspecified iron deficiency anemia type Expected: 01/07/2024, Expires: 01/06/2025 VITAMIN B12 AND FOLATE Lab Routine Iron deficiency anemia, unspecified iron deficiency anemia type Expected: 01/07/2024, Expires: 01/06/2025 LACTATE DEHYDROGENASE Lab Routine Iron deficiency anemia, unspecified iron deficiency anemia type Expected: 01/07/2024, Expires: 01/06/2025 VITAMIN D 25 HYDROXY Lab Routine Iron deficiency anemia, unspecified iron deficiency anemia type Vitamin D deficiency Expected: 01/07/2024, Expires: 01/06/2025 documented as of this encounter Visit Diagnoses Diagnosis Iron deficiency anemia, unspecified iron deficiency anemia type- Primary Vitamin D deficiency Unspecified vitamin D deficiency documented in this encounter Care Teams Uniform Cap Operator Relationship Specialty Start Date End Date Rosette Ayala MD [address] [place] [phone] PCP - General Family Practice 12/31/23 documented as of this encounter
--- OUTSIDE RECORDS SUMMARY | 2024-07-29 03:32 | XMS_ITS | Encounter Summary ---
Author Organization [facility] [employer] Address [address] [place] [address] Care Team Providers Care Geotechnical Laboratory Technician Name Role Phone Rosette Ayala MD Primary Care Provider +1- [phone] Encounter Details Date Type Department Care Team (Late Contact Info) Description 01/08/2024 Orders Only [facility] Oncology and Hematology [facility] [address] [place] [address] Zeke Braden MD [address] [place] [address] Social History Tobacco Use Types Packs/Day [...] (Late Contact Info) Description 08/12/2024 11:30 AM HYDRAULIC REPAIRER Office Visit [facility] Oncology and Hematology - [place] [address] [place] [address] Zeke Braden MD [address] [place] [address] documented as of this encounter Procedures Procedure Name Priority Date/Time Associated Diagnosis Comments COMPREHENSIVE METABOLIC PANEL Routine 01/07/2024 11:05 AM CDT documented in this encounter Results * COMPREHENSIVE METABOLIC PANEL (01/07/2024 11:05 AM CDT) Blood Zeke Braden MD CHEMISTRY ORDERABLES documented in this encounter Visit Diagnoses Not on filedocumented in this encounter Care Teams Geotechnical Laboratory Technician Relationship Specialty Start Date End Date Rosette Ayala MD [address] [facility] 120 [place] [address] PCP - General Family Practice 12/31/23 documented as of this encounter
--- OUTSIDE RECORDS SUMMARY | 2024-07-29 11:44 | XMS_ITS | Encounter Summary ---
Author Organization [facility] Address [address] [place] [address] Care Team Providers Care Theatrical Performer Name Role Phone Rosette Ayala MD Primary Care Provider +1- [phone] Encounter Details Date Type Department Care Team [...] st Contact Info) Description 08/12/2024 11:30 AM PATIENT ADMITTING CLERK Office Visit [facility] Oncology and Hematology - [place] 222 [facility] 200 [place] [address] [place] [address] [place] [address] [address] [place] [address] documented as of this encounter Visit Diagnoses Not on filedocumented in this encounter Care Teams Theatrical Performer Relationship Specialty Start Date End Date Rosette Ayala MD [address] [facility] 120 [place] [address] PCP - General Family Practice 12/31/23 documented as of this encounter
--- OUTSIDE RECORDS SUMMARY | 2024-07-29 11:44 | XMS_ITS | Encounter Summary ---
Author Organization [facility] [employer] [facility] Address [address] [place] [address] Care Team Providers Care News Reporter Name Role Phone Rosette Ayala MD Primary Care Provider +1- [phone] Encounter Details Date Type Department Care Team (Late Contact Info) Description 04/03/2024 Orders Only [facility] Oncology [facility] Hematology [facility] [address] [place] [address] Zeke Braden MD 222[facility] [address] [place] [address] Social History Tobacco Use Types Packs/Day [...] (Late Contact Info) Description 08/12/2024 11:30 AM PROVIDER NETWORK ANALYST Office Visit [facility] Oncology and Hematology [place] [address] [place] [address] Zeke Braden MD [address] [employer] [address] [place] [address] documented as of this encounter Procedures Procedure Name Priority Date/Time Associated Diagnosis Comments CBC WITH DIFFERENTIAL Routine 04/03/2024 10:43 AM CDT documented in this encounter Results * CBC WITH DIFFERENTIAL (04/03/2024 10:43 AM CDT) Blood Zeke Braden MD HEMATOLOGY ORDERABLE S documented in this encounter Visit Diagnoses Not on filedocumented in this encounter Care Teams News Reporter Relationship Specialty Start Date End Date Rosette Ayala MD [address] [facility] [address] [place] [address] PCP - General Family Practice 12/31/23 documented as of this encounter
--- OUTSIDE RECORDS SUMMARY | 2024-07-29 11:44 | XMS_ITS | Clinical Summary ---
Author Organization [facility] Jaimee law Ant Address [address] [place] [address] Care Team Providers Care Patternmaker Plaster And Plastic Name Role Phone Rosette Ayala MD Primary Care Provider +1- [phone] Allergies Active Allergy Reactions Criticality Noted Date [...] Type Department Care Team Description 07/24/2024 Telephone [facility] Oncology and Hematology - [place] [address] [place] [address] Zkee Braden MD Lab Results 07/23/2024 Abstract [facility] Oncology and Hematology [place] [address] [place] [address] Zeke Braden MD 05/15/2024 Orders Only [facility] Oncology and Hematology - [place] [address] [place] [address] Zeke Braden MD Chronic anemia (Primary Dx) 05/14/2024 4:30 PM CDT Telephone Check Up [facility] Oncology and Hematology - [place] [address] [place] [address] Zeke Braden MD 05/09/2024 Orders Only [facility] Oncology and Hematology - [place] [address] [place] [address] Zeke Braden MD 05/08/2024 Orders Only [facility] Oncology and Hematology - [place] [address] [place] [address] Zeke Braden MD from Last 3 Months [...] st Contact Info) Description 08/12/2024 11:30 AM EXECUTIVE PERSONAL ASSISTANT Office Visit [facility] Oncology and Hematology - [place] [address] [facility] [address] [place] [address] Zeke Braden MD [address] [facility] [address] [place] [address] Health Maintenance Due Date Last [...] ORDERABLES from Last 3 Months Care Teams Patternmaker Plaster And Plastic Relationship Specialty Start Date End Date Rosette Ayala MD [address] [facility] [address] [place] [address] PCP - General Family Practice 12/31/23
--- OUTSIDE RECORDS SUMMARY | 2024-07-29 11:44 | XMS_ITS | Encounter Summary ---
Author Organization [facility] [employer] Address [address] [place] [address] Care Team Providers Care Robot Operator Name Role Phone Rosette Ayala MD Primary Care Provider +1- [phone] Encounter Details Date Type Department Care Team (Late Contact Info) Description 05/08/2024 Orders Only [facility] Oncology [facility] Hematology [facility] [address] [place] [address] Zeke Braden MD 222[facility] [address] [place] [address] Social History Tobacco Use Types Packs/Day [...] (Late Contact Info) Description 08/12/2024 11:30 AM COIN MACHINE COLLECTOR Office Visit [facility] Oncology and Hematology [place] [address] [place] [address] Zeke Braden MD [address] [employer] [address] [place] [address] documented as of this encounter Procedures [...] on filedocumented in this encounter Care Teams Robot Operator Relationship Specialty Start Date End Date Rosette Ayala MD [address] [facility] [address] [place] [address] PCP - General Family Practice 12/31/23 documented as of this encounter
--- OUTSIDE RECORDS SUMMARY | 2024-07-29 11:44 | XMS_ITS | Encounter Summary ---
Author Organization [facility] Address [address] [place] [address] Care Team Providers Care Dam Tender Name Role Phone Rosette Ayala MD Primary Care Provider +1- [phone] Encounter Details Date Type Department Care Team [...] st Contact Info) Description 08/12/2024 11:30 AM CHECK VIEWER Office Visit [facility] Oncology and Hematology - [place] 222 [facility] 200 [place] [address] [place] [address] [place] [address] [address] [place] [address] documented as of this encounter Visit Diagnoses Not on filedocumented in this encounter Care Teams Dam Tender Relationship Specialty Start Date End Date Rosette Ayala MD [address] [facility] [address] [place] [address] PCP - General Family Practice 12/31/23 documented as of this encounter
--- OUTSIDE RECORDS SUMMARY | 2024-07-29 11:44 | XMS_ITS | Encounter Summary ---
Author Organization [facility] [employer]AH[employer] [facility] Address [address] [place] [address] Care Team Providers Care Sheet Sorter Name Role Phone Rosette Ayala MD Primary Care Provider +1- [phone] Encounter Details Date Type Department Care Team (Late Contact Info) Description 05/15/2024 Orders Only [facility] Oncology and Hematology [facility] [address] [place] [address] Zeke Braden MD [address] [place], [place] [address] [address] [place] [address] Chronic anemia (Primary Dx) Social History [...] (Late Contact Info) Description 08/12/2024 11:30 AM RECORDS MANAGEMENT TECHNICIAN Office Visit [facility] Oncology and Hematology - [place] [address] [place] [address] Zeke Braden MD [address] [place] [address] Scheduled Orders Name Type Priority Associated [...] unspecified documented in this encounter Care Teams Sheet Sorter Relationship Specialty Start Date End Date Rosette Ayala MD [address] [facility] [address] [place] [address] PCP - General Family Practice 12/31/23 documented as of this encounter
--- OUTSIDE RECORDS SUMMARY | 2024-07-29 11:44 | XMS_ITS | Encounter Summary ---
Author Organization [facility] DEBORAHGinx Address [address] [place] [address] Care Team Providers Care Trapeze Performer Name Role Phone Rosette Ayala MD Primary Care Provider +1- [phone] Encounter Details Date Type Department Care Team (Late Contact Info) Description 01/08/2024 Orders Only [facility] Oncology and Hematology [facility] [address] [place] [address] Zeke Braden MD [address] [place] [address] Social History Tobacco Use Types Packs/Day [...] (Late Contact Info) Description 08/12/2024 11:30 AM FRONT DESK ADMIN Office Visit [facility] Oncology and Hematology - [place] [address] [place] [address] Zeke Braden MD [address] [place] [address] documented as of this encounter Procedures Procedure Name Priority Date/Time Associated Diagnosis Comments COMPREHENSIVE METABOLIC PANEL Routine 01/07/2024 11:05 AM CDT documented in this encounter Results * COMPREHENSIVE METABOLIC PANEL (01/07/2024 11:05 AM CDT) Blood Zeke Braden MD CHEMISTRY ORDERABLES documented in this encounter Visit Diagnoses Not on filedocumented in this encounter Care Teams Trapeze Performer Relationship Specialty Start Date End Date Rosette Ayala MD [address] [facility] [address] [place] [address] PCP - General Family Practice 12/31/23 documented as of this encounter
--- OUTSIDE RECORDS SUMMARY | 2024-07-29 11:44 | XMS_ITS | Encounter Summary ---
Author Organization [facility] [employer]Key [employer] Address [address] [place] [address] Care Team Providers Care Construction Project Assistant Name Role Phone Rosette Ayala MD Primary Care Provider +1- [phone] Encounter Details Date Type Department Care Team (Late Contact Info) Description 05/09/2024 Orders Only [facility] Oncology [facility] Hematology [facility] [address] [place] [address] Zeke Braden MD 222[facility] [email or web address] [address] [place] [address] Social History Tobacco Use Types Packs/Day [...] (Late Contact Info) Description 08/12/2024 11:30 AM HADOOP CONSULTANT Office Visit [facility] Oncology and Hematology [place] [address] [place] [address] Zeke Braden MD [address] [employer] [address] [place] [address] documented as of this encounter Procedures Procedure Name Priority Date/Time Associated Diagnosis Comments CREATININE Routine 05/08/2024 12:07 PM CDT documented in this encounter Results * CREATININE (05/08/2024 12:07 PM CDT) Blood Zeke Braden MD CHEMISTRY ORDERABLES documented in this encounter Visit Diagnoses Not on filedocumented in this encounter Care Teams Construction Project Assistant Relationship Specialty Start Date End Date Rosette Ayala MD [address] [facility] [address] [place] [address] PCP - General Family Practice 12/31/23 documented as of this encounter
--- OUTSIDE RECORDS SUMMARY | 2024-07-29 11:44 | XMS_ITS | Encounter Summary ---
Author Organization [facility] Address [address] [place] [address] Care Team Providers Care Solar Sales Ambassador Name Role Phone Rosette Ayala MD Primary Care Provider +1- [phone] Encounter Details Date Type Department Care Team [...] st Contact Info) Description 08/12/2024 11:30 AM MANAGER GENERAL Office Visit [facility] Oncology and Hematology - [place] 222 [facility] 200 [place] [address] [place] [address] [place] [address] [address] [place] [address] documented as of this encounter Visit Diagnoses Not on filedocumented in this encounter Care Teams Solar Sales Ambassador Relationship Specialty Start Date End Date Rosette Ayala MD [address] [facility] 120 [place] [address] PCP - General Family Practice 12/31/23 documented as of this encounter
--- OUTSIDE RECORDS SUMMARY | 2024-07-29 11:44 | XMS_ITS | Encounter Summary ---
Author Organization [facility] Address [address] [place] [address] Care Team Providers Care Bus Monitor Name Role Phone Rosette Ayala MD Primary Care Provider +1- [phone] Encounter Details Date Type Department Care Team [...] st Contact Info) Description 08/12/2024 11:30 AM WET TRIMMER Office Visit [facility] Oncology and Hematology - [place] 222 [facility] 200 [place] [address] [place] [address] [place] [address] [address] [place] [address] documented as of this encounter Visit Diagnoses Not on filedocumented in this encounter Care Teams Bus Monitor Relationship Specialty Start Date End Date Rosette Ayala MD [address] [facility] [address] [place] [address] PCP - General Family Practice 12/31/23 documented as of this encounter
--- OUTSIDE RECORDS SUMMARY | 2024-07-29 11:44 | XMS_ITS | Encounter Summary ---
Author Organization [facility] Address [address] [place] [address] Care Team Providers Care Glass Mould Cleaner Name Role Phone Rosette Ayala MD Primary Care Provider +1- [phone] Encounter Details Date Type Department Care Team [...] st Contact Info) Description 08/12/2024 11:30 AM AGRICULTURAL MECHANIC Office Visit [facility] Oncology and Hematology - [place] 222 [facility] 200 [place] [address] [place] [address] [place] [address] [address] [place] [address] documented as of this encounter Visit Diagnoses Not on filedocumented in this encounter Care Teams Glass Mould Cleaner Relationship Specialty Start Date End Date Rosette Ayala MD [address] [facility] [address] [place] [address] PCP - General Family Practice 12/31/23 documented as of this encounter
--- OUTSIDE RECORDS SUMMARY | 2024-07-29 11:44 | XMS_ITS | Encounter Summary ---
Author Organization [facility] Address [address] [place] [address] Care Team Providers Care Functional Tester Typewriters Name Role Phone Rosette Ayala MD Primary Care Provider +1- [phone] Encounter Details Date Type Department Care Team [...] st Contact Info) Description 08/12/2024 11:30 AM ENERGY SYSTEMS LABORATORY DIRECTOR Office Visit [facility] Oncology and Hematology - [place] 222 [facility] [address] [place] [address] [place] [address] [place] [address] [address] [place] [address] documented as of this encounter Visit Diagnoses Not on filedocumented in this encounter Care Teams Functional Tester Typewriters Relationship Specialty Start Date End Date Rosette Ayala MD [address] [facility] [address] [place] [address] PCP - General Family Practice 12/31/23 documented as of this encounter
--- OUTSIDE RECORDS SUMMARY | 2024-07-29 11:44 | XMS_ITS | Encounter Summary ---
Author Organization [facility] [employer] Address [address] [place] [address] Care Team Providers Care Assistant Speech Language Pathologist Name Role Phone Rosette Ayala MD Primary Care Provider +1- [phone] Encounter Details Date Type Department Care Team (Late Contact Info) Description 01/14/2024 Orders Only [facility] Oncology and Hematology [facility] [address] [place] [address] Kylee Beltre FNP [address] [address] Social History Tobacco Use Types [...] (Late Contact Info) Description 08/12/2024 11:30 AM SHIFT LEADER Office Visit [facility] Oncology and Hematology - [place] [address] [place] [address] [place] [address] [place] [address] [address] [place] [address] documented as of this encounter Procedures Procedure Name Priority Date/Time Associated Diagnosis Comments METHYLMALONIC ACID Routine 01/07/2024 9:56 AM CDT documented in this encounter Results * METHYLMALONIC ACID (01/07/2024 9:56 AM CDT) Blood Kylee Beltre DESTATICIZER FEEDER CHEMISTRY ORDERABLES documented in this encounter Visit Diagnoses Not on filedocumented in this encounter Care Teams Assistant Speech Language Pathologist Relationship Specialty Start Date End Date Rosette Ayala MD [address] [facility] 120 [place] [address] PCP - General Family Practice 12/31/23 documented as of this encounter
--- OUTSIDE RECORDS SUMMARY | 2024-07-29 11:44 | XMS_ITS | Encounter Summary ---
Author Organization [facility] [employer]AHBridge [employer] [facility]i [facility] Address [address] [place] [address] Care Team Providers Care Order Selector Name Role Phone Rosette Ayala MD Primary Care Provider +1- [phone] Encounter Details Date Type Department Care Team (Late st Contact Info) Description 05/14/2024 4:30 PM CDT Telephone Check Up [facility] Oncology and Hematology - [place] 2[address] [facility] 200 [place] [address] Zeke Braden MD [address] [facility] [address] [place] [address] Social History Tobacco Use Types [...] Atrial fibrillation. He will follow-up with the web designer. 05/14/2024 Zeke Braden MD This encounter was [...] st Contact Info) Description 08/12/2024 11:30 AM BRIAR CUTTER Office Visit [facility] Oncology and Hematology - [place] [facility] [address] [place] [address] Zeke Braden MD [address] [facility] [address] [place] [address] documented as of this encounter Visit Diagnoses Not on filedocumented in this encounter Care Teams Order Selector Relationship Specialty Start Date End Date Rosette Ayala MD [address] [facility] 120 [place] [address] PCP - General Family Practice 12/31/23 documented as of this encounter
--- OUTSIDE RECORDS SUMMARY | 2024-07-29 11:44 | XMS_ITS | Encounter Summary ---
Author Organization [facility] [employer] Address [address] [place] [address] Care Team Providers Care Restaurant Line Cook Name Role Phone Rosette Ayala MD Primary Care Provider +1- [phone] Reason for Visit * Reason Onset Date Comments Lab Results 01/08/2024 Encounter Details Date Type Department Care Team (Late st Contact Info) Description 01/08/2024 Telephone [facility] Oncology and Hematology - [place] [address] [place] [address] Kylee Beltre FNP [address] [facility] 100 [place] [address] Lab Results Social History Tobacco [...] st Contact Info) Description 08/12/2024 11:30 AM ELECTRIC SEALING MACHINE OPERATOR Office Visit [facility] Oncology and Hematology - [place] 2227 [facility] 200 [place] [address] Zeke Braden MD 2[address] [facility] [address] [place] [address] documented as of this encounter Visit Diagnoses Not on filedocumented in this encounter Care Teams Restaurant Line Cook Relationship Specialty Start Date End Date Rosette Ayala MD [address] [place] [address] PCP - General Family Practice 12/31/23 documented as of this encounter
--- OUTSIDE RECORDS SUMMARY | 2024-07-29 11:44 | XMS_ITS | Encounter Summary ---
Author Organization [facility] Address [address] [place] [address] Care Team Providers Care Ship Officer Name Role Phone Rosette Ayala MD Primary Care Provider +1- [phone] Encounter Details Date Type Department Care Team [...] st Contact Info) Description 08/12/2024 11:30 AM TEST CLERK Office Visit [facility] Oncology and Hematology - [place] [address] [facility] 200 [place] [address] [place] [address] [place] [address] [address] [place] [address] documented as of this encounter Visit Diagnoses Not on filedocumented in this encounter Care Teams Ship Officer Relationship Specialty Start Date End Date Rosette Ayala MD [address] [facility] 120 [place] [address] PCP - General Family Practice 12/31/23 documented as of this encounter
--- OUTSIDE RECORDS SUMMARY | 2024-07-29 11:44 | XMS_ITS | Encounter Summary ---
Author Organization [facility] Address [address] [place] [address] Care Team Providers Care Loan Interviewer Mortgage Name Role Phone Rosette Ayala MD Primary Care Provider +1- [phone] Encounter Details Date Type Department Care Team [...] st Contact Info) Description 08/12/2024 11:30 AM RECREATION ESTABLISHMENT MANAGER Office Visit [facility] Oncology and Hematology - [place] 222 [facility] 200 [place] [address] [place] [address] [place] [address] [address] [place] [address] documented as of this encounter Visit Diagnoses Not on filedocumented in this encounter Care Teams Loan Interviewer Mortgage Relationship Specialty Start Date End Date Rosette Ayala MD [address] [facility] 120 [place] [address] PCP - General Family Practice 12/31/23 documented as of this encounter
--- OUTSIDE RECORDS SUMMARY | 2024-07-29 11:44 | XMS_ITS | Encounter Summary ---
Author Organization [facility] Address [address] [place] [address] Care Team Providers Care Awning Assembler Name Role Phone Rosette Ayala MD Primary Care Provider +1- [phone] Encounter Details Date Type Department Care Team [...] st Contact Info) Description 08/12/2024 11:30 AM ENRICHMENT TEACHER Office Visit [facility] Oncology and Hematology - [place] 222 [facility] 200 [place] [address] [place] [address] [place] [address] [address] [place] [address] documented as of this encounter Visit Diagnoses Not on filedocumented in this encounter Care Teams Awning Assembler Relationship Specialty Start Date End Date Rosette Ayala MD [address] [facility] 120 [place] [address] PCP - General Family Practice 12/31/23 documented as of this encounter
--- OUTSIDE RECORDS SUMMARY | 2024-07-29 11:44 | XMS_ITS | Encounter Summary ---
Author Organization [facility] CARRIE [employer]ones [facility] Address [address] [place] [address] Care Team Providers Care Package Pick Up Name Role Phone Rosette Ayala MD Primary Care Provider +1- [phone] Reason for Visit * Reason Comments Establish Care Encounter Details Date Type Department Care Team (Late st Contact Info) Description 01/07/2024 10:30 AM CDT Office Visit [facility] Oncology and Hematology - [place] [address] [place] [address] Kylee Beltre FNP [address] [facility] 100 [place] [address] Iron deficiency anemia, unspecified iron [...] sent through Care Everywhere. * Iron-Rich Diet (Telugu) * Iron Supplements: General Info (Telugu) documented in this encounter Progress Notes * yKlee Beltre FNP - 01/07/2024 11:58 AM CDT [...] 01/07/2024 11:59 AM Hematology Oncology Nurse Practitioner [facility] On the day of this [...] st Contact Info) Description 08/12/2024 11:30 AM DRUG ABUSE SOCIAL WORKER Office Visit [facility] Oncology and Hematology [facility] [address] [place] [address] Zeke Braden MD [address] [facility] [address] [place] [address] Scheduled Orders Name Type Priority [...] deficiency documented in this encounter Care Teams Package Pick Up Relationship Specialty Start Date End Date Rosette Ayala MD [address] [place] [id number] PCP - General Family Practice 12/31/23 documented as of this encounter
--- OUTSIDE RECORDS SUMMARY | 2024-07-29 11:44 | XMS_ITS | Encounter Summary ---
Author Organization [facility] Address [address] [place] [address] Care Team Providers Care Case Hardener Name Role Phone Rosette Ayala MD Primary Care Provider +1- [phone] Encounter Details Date Type Department Care Team [...] st Contact Info) Description 08/12/2024 11:30 AM CONNIE CLEANER Office Visit [facility] Oncology and Hematology - [place] 222 [facility] 200 [place] [address] [place] [address] [place] [address] [address] [place] [address] documented as of this encounter Visit Diagnoses Not on filedocumented in this encounter Care Teams Case Hardener Relationship Specialty Start Date End Date Rosette Ayala MD [address] [facility] 120 [place] [address] PCP - General Family Practice 12/31/23 documented as of this encounter
--- OUTSIDE RECORDS SUMMARY | 2024-07-29 11:44 | XMS_ITS | Encounter Summary ---
Author Organization [facility] Address [address] [place] [address] Care Team Providers Care Molding Plasterer Name Role Phone Rosette Ayala MD Primary Care Provider +1- [phone] Encounter Details Date Type Department Care Team [...] st Contact Info) Description 08/12/2024 11:30 AM C D STILL OPERATOR Office Visit [facility] Oncology and Hematology - [place] 222 [facility] 200 [place] [address] [place] [address] [place] [address] [address] [place] [address] documented as of this encounter Visit Diagnoses Not on filedocumented in this encounter Care Teams Molding Plasterer Relationship Specialty Start Date End Date Rosette Ayala MD [address] [facility] 120 [place] [address] PCP - General Family Practice 12/31/23 documented as of this encounter
--- OUTSIDE RECORDS SUMMARY | 2024-07-29 11:44 | XMS_ITS | Encounter Summary ---
Author Organization [facility] CARRIE [employer]ones [facility] Address [address] [place] [address] Care Team Providers Care Financial Intern Name Role Phone Rosette Ayala MD Primary Care Provider +1- [phone] Reason for Referral * CT Scan (Routine) - Closed Specialty Diagnoses / Procedures Referred By Compa pettit Referred To Contact Diagnoses Abnormal weight loss Procedures CT CHEST ABDOMEN PELVIS W Zeke Coleman MD [address] [place] [address] [place] [address] Referral ID Status Reason Start Date Expiration Date V isits Requested Visits Authorized [id number] Closed [facility] CTS 04/09/2024 05/10/2025 1 1 Reason for Visit * Reason Comments Follow Up Encounter Details Date Type Department Care Team (Late st Contact Info) Description 04/09/2024 1:00 PM CDT Office Visit [facility] Oncology and Hematology [facility] [address] [address] [address] Zeke Braden MD [address] [place] [address] Iron deficiency anemia, unspecified iron [...] Atrial fibrillation. Patient will follow-up with the pari mutuel ticket cashier. Hypertension. Stable. Follow-up with labs in 4 months ? TOBACCO COUNSELING He is not a tobacco/nicotine user. 04/09/2024 Zeke Braden MD documented in this encounter Plan of Treatment Upcoming Encounters Date Type Department Care Team (Late st Contact Info) Description 08/12/2024 11:30 AM COTTAGE ATTENDANT Office Visit [facility] Oncology and Hematology - [place] [address] [facility] [address] [place] [address] Zeke Braden MD 2[address] [facility] [address] [place] [address] Scheduled Orders Name Type Priority Associated Diagnoses [...] weight documented in this encounter Care Teams Financial Intern Relationship Specialty Start Date End Date Rosette Ayala MD [address] [facility] 120 [place] [address] PCP - General Family Practice 12/31/23 documented as of this encounter
== END 2024-07-22 15:15 | disposition home or self-care (01) ==
PROVIDERS: Emergency Provider Student in an Organized Health Care Education/Training Program; PCP Family Medicine
DX: N17.9 Acute kidney failure, unspecified (principal); N39.0 Urinary tract infection, site not specified; B96.20 Unspecified Escherichia coli [E. coli] as the cause of diseases classified elsewhere; D61.818 Other pancytopenia; D50.9 Iron deficiency anemia, unspecified; I50.9 Heart failure, unspecified; J44.9 Chronic obstructive pulmonary disease, unspecified; Z87.891 Personal history of nicotine dependence
CPT/HCPCS: 36415; 80053; 82728; 83540; 83550; 85025; 85055; 85610; 85730; 96361; 96365; 96375; 99284; J0696; J7030

== ENCOUNTER 2024-07-28 13:19 | Outpatient (CLI) | payer MEDICARE, SELFPAY ==
--- NOTE | ~2024-07-28 | XR_ITS ---
CHEST RADIOGRAPH, PA AND LATERAL CLINICAL HISTORY: R06.00 - Dyspnea, unspecified . COMPARISON: 12/11/2023 TECHNIQUE: PA and lateral views of the chest. FINDINGS The cardiomediastinal silhouette is unremarkable. Increased interstitial markings within the superior segment of the right lower lobe for which an lance y infiltrate is suspected. Biapical scarring. The remainder of the lungs are clear. Visualized osseous structures and soft tissues are unremarkable. IMPRESSION: Early infiltrate within the superior segment of the right lower lobe, as detailed above. Reviewed, dictated and finalized at location A. TERIA OPERATOR IMPRESSION: Early infiltrate within the superior segment of the right lower lobe, as detail ed above.
== END 2024-07-28 13:20 | disposition home or self-care (01) ==
LOC: MICIMG 13:21
PROVIDERS: PCP Family Medicine; Visit Provider Physician Assistant
DX: R91.8 Other nonspecific abnormal finding of lung field (principal); R06.00 Dyspnea, unspecified
CPT/HCPCS: 71046

== ENCOUNTER 2024-08-05 13:44 | Outpatient (CLI) | payer MEDICARE, SELFPAY ==
[2024-08-05 13:55] LABS: Basophils Percent Auto 0.8 % (0.2-1.2); Eosinophils Percent Auto 1.1 % (0-4.4); Hematocrit 23.8 % (42.0-52.0); Hemoglobin 7.9 g/dL (14.0-18.0); Immature Granulocyte Absolute 0.04 K/mm3 (0.00-0.031); Immature Granulocyte Percent A 1.5 % (0-0.5); Lymphocytes Absolute Auto 0.66 K/mm3 (0.9-3.2); Lymphocytes Percent Auto 24.9 % (18.3-44.2); Mean Corpuscular HGB Conc 33.2 g/dl (32-36); Mean Corpuscular Hemoglobin 30.5 pg (26-34); Mean Corpuscular Volume 91.9 fl (80-100); Mean Platelet Volume 9.1 fl (7.4-10.4); Monocytes Absolute Auto 0.2 K/mm3 (0.1-0.6); Monocytes Percent Auto 8.3 % (2.6-8.5); Neutrophils Absolute Auto 1.7 K/mm3 (1.3-6.7); Neutrophils Percent Auto 63.4 % (45.5-73.1); Platelet Count Result 119 k/mm3 (150-375); Red Blood Count 2.59 M/mm3 (4.6-6.20); Red Cell Distribution Width 15.1 % (11.5-14.5); White Blood Count 2.7 K/mm3 (4.5-10.0)
[2024-08-05 14:00] LABS: Blood Urea Nitrogen 43 mg/dL (8-26); Carbon Dioxide 23 mmol/L (22-30); Chloride 102 mmol/L (98-109); Estimated Glomerular Filt Rate 26; Glucose 100 mg/dL (70-105); Ionized Calcium (POC) 1.17 mmol/L (1.11-1.31); Potassium 4.1 mmol/L (3.5-4.9); Sodium 138 mmol/L (138-146)
[2024-08-05 14:00] LABS: Ovalocytes 1+; Platelet Estimate Decreased (Adequate); Schistocytes None Seen
[2024-08-05 14:01] LABS: Crenated RBC 1+; Poikilocytosis 2+
[2024-08-05 17:01] LABS: Alanine Aminotransferase 16 U/L (6-50); Albumin Level 3.3 g/dL (3.5-5.1); Alkaline Phosphatase 104 U/L (38-126); Anion Gap 9 mmol/L (4-12); Aspartate Amino Transferase 26 U/L (17-59); Bilirubin,Total 0.5 mg/dL (0.2-1.3); Blood Urea Nitrogen 47 mg/dL (9-20); Calcium 8.6 mg/dL (8.4-10.2); Carbon Dioxide 23 mmol/L (22-30); Chloride 103 mmol/L (98-107); Estimated Glomerular Filt Rate 30; Glucose 100 mg/dL (65-110); Potassium 4.3 mmol/L (3.4-5.0); Sodium 135 mmol/L (137-145)
== END 2024-08-05 13:45 | disposition home or self-care (01) ==
PROVIDERS: PCP Family Medicine; Visit Provider Internal Medicine Hematology & Oncology
DX: D64.9 Anemia, unspecified (principal)
CPT/HCPCS: 36415; 80047; 80053; 85025

== ENCOUNTER 2024-08-21 00:09 | Day surgery (SDC) | payer MEDICARE, SELFPAY ==
[2024-08-20 12:36] VITALS: BMI 20.3
--- NOTE | ~2024-08-21 | BM_ITS ---
EXAMINATION: CCL bone marrow asp w bx diag DATE: 08/21/2024 09:36 INDICATION: Pancytopenia. TECHNIQUE: A time-out was performed to verify the patient's name, date of , and procedure to b e performed. The procedure including the risks, benefits, and alternatives was discussed with the pat ient. Risks discussed included bleeding and infection. The patient understood the risks and agreed to proceed. The skin overlying the left ilium was prepped and draped in usual sterile fashion. Anesth etic was administered with 1% lidocaine subcutaneously. 50 mcg fentanyl IV was given for pain control . An 11 gauge needle was inserted into the ilium with fluoroscopic guidance. Bone marrow was aspirat ed. An 8 gauge needle was then inserted into the ilium with fluoroscopic guidance. A core bone marrow biopsy was obtained. There were no immediate complications. Fluoroscopy exposure time was 0.0 minute s. The total number of images was 22. FINDINGS: Real-time fluoroscopy demonstrates a marker overlying the left posterior superior iliac spi ne. IMPRESSION: 1. Fluoro-guided bone marrow aspiration. 2. Fluoro-guided bone marrow core biopsy. Reviewed, dictated and finalized at location A. O VISUAL ENGINEER
--- OUTSIDE RECORDS SUMMARY | 2024-08-21 00:12 | XMS_ITS | Clinical Summary ---
Author Organization [facility] [place] [address] Address [address] [place] [address] Care Team Providers Care Onyx Chip Terrazzo Worker Name Role Phone Rosette Ayala MD Primary Care Provider Allergies Active Allergy Reactions Criticality Noted Date Comments Prednisone Rash Medium 03/07/2022 Medications vit C,J-Ct-mowoo-l utein-zeaxan (PreserVision AREDS-2) 250-90-40-1 mg capsule Take 2 capsules by mouth daily Active omega 4-vzo-gnr-fish oil 1,000 mg (120 mg-180 mg) capsule Take 1 capsule (1,000 mg total) by mouth daily Active cyanocobalamin (Vitamin B-12) 1,000 mcg tabletIndicati ons:Prevention of Vitamin B12 Deficiency Take 1 tablet (1,000 mcg total) by mouth daily Active Ferrex 150 150 mg iron capsule Take 1 capsule (150 mg total) by mouth daily 09/16/19 23 Active cholecalcifero l (VITAMIN D-3) 2000 unit tablet Active hydrALAZINE (APRESOLINE) 100 mg tablet Take 1 tablet (100 mg total) by mouth 2 (two) times a day 06/21/20 23 Active nitroglycerin (NITROSTAT) 0.[address] 1 tablet (0.4 mg total) under the tongue every 5 (five) minutes as needed for chest pain Active azelastine (ASTELIN) 137 mcg (0.1 %) nasal spray Administer 2 sprays into affected nostril(s) 2 (two) times a day Active dilTIAZem XR (CARDIZEM CD,DILACOR XR) 240 mg 24 hr capsule Take 1 capsule (240 mg total) by mouth daily 90 capsule 3 01/25/20 24 025 Active metoprolol XL (TOPROL-XL) 50 mg extended release tablet Take 1 tablet (50 mg total) by mouth daily 06/27/20 24 Active albuterol HFA (PROVENTIL HFA,VENTOLIN HFA,PROAIR HFA) 90 mcg/actuation inhaler Inhale 04/22/20 24 Active cefpodoxime (VANTIN) 200 mg tablet Take 0.5 tablets (100 mg total) by mouth 2 (two) times a day For 11 days only 07/22/19 25 Active ciprofloxacin (CIPRO) 500 mg tablet Take 1 tablet (500 mg total) by mouth every 12 (twelve) hours for 10 days 05/16/20 24 Active omeprazole (PriLOSEC) 40 mg capsule Take 1 capsule (40 mg total) by mouth daily 07/14/20 24 Active multivitamin capsule Take 1 capsule by mouth daily 025 Discontinued(Th erapy completed) finasteride (PROSCAR) 5 mg tablet Take 1 tablet (5 mg total) by mouth daily 05/05/20 22 025 Discontinued(Th erapy completed) hydroCHLOROthi azide (HYDRODIURIL) 25 mg tablet Take 1 tablet (25 mg total) by mouth daily 07/02/20 23 025 Discontinued( erapy completed) cyclobenzaprin e (FLEXERIL) 5 mg tablet Take 1 tablet (5 mg total) by mouth 3 (three) times a day as needed for muscle spasms 11/13/19 24 025 Discontinued( erapy completed) rosuvastatin (CRESTOR) 5 mg tablet Take 1 tablet (5 mg total) by mouth daily 30 tablet 11 01/25/20 24 025 Discontinued(Th erapy completed) ezetimibe (ZETIA) 10 mg tablet Take 1 tablet (10 mg total) by mouth daily 30 tablet 01/28/20 24 025 Discontinued(Th erapy completed) metoprolol (LOPRESSOR) 100 mg tablet TAKE 1 TABLET BY MOUTH TWICE A DAY 180 tablet 3 07/17/19 25 025 Discontinued Active Problems Problem Noted Date Diagnosed Date Persistent atrial fibrillation 01/25/2024 Hyperlipidemia 01/25/2024 Essential hypertension 03/07/2022 Paroxysmal SVT (supraventricular tachycardia) Nonsustained ventricular tachycardia 03/07/2022 Ascending aortic aneurysm 03/07/2022 Encounters Date Type Department Care Team Description 07/31/2024 1:30 PM CAM MAKER Office Visit [facility] Cardiology [address] [place] [address] Louise Land MD Persistent atrial fibrillation (HCC) (Primary Dx); Paroxysmal SVT (supraventricular tachycardia) (HCC); Essential hypertension; Mixed hyperlipidemia; Aneurysm of ascending aorta without rupture (HCC); Shortness of breath from Last 3 Months Surgical History Surgery Date Site/Laterality Comments HERNIA MESH REMOVAL Medical History Medical History Date Comments Hypertension Anemia COPD (chronic obstructive pulmonary disease) (HC C) PSVT (paroxysmal supraventricular tachycardia) ( HCC) Nonsustained ventricular tachycardia (HCC) Aortic atherosclerosis (HCC) Ascending aortic aneurysm (HCC) Family History Medical History Relation Name Comments Cancer Mother Diabetes Sister Relation Name Status Comments Brother Father (Age 77) Mother (Age 58) Sister (Age 21) Social History Tobacco Use Types Packs/Day Years Used Date Smoking Tobacco: Never Tobacco Cessation:Counseling Given: Not Answered AUDIT-C Answer Date Recorded Q1: How often do you have a drink containing alcohol? Monthly or less 03/07/2022 Q2: How many drinks containi ng alcohol do you have on a typical day when you are drinking? Patient does not drink Frequency of Binge Drinking Not on file 02/14 Sex and Gender Information Value Date Recorded Sex Assigned at Not on file Legal Sex Male 2:07 PM CDT Gender Identity Not on file Sexual Orientation Not on file Obstetrics History Last Filed Vital Signs Vital Sign Reading Time Taken Comments Blood Pressure 160/50 07/31/2024 1:31 PM CAM MAKER Pulse 67 07/31/2024 1:31 PM CAM MAKER Temperature - - Respiratory Rate - - Oxygen Saturation 96% 07/31/2024 1:31 PM CAM MAKER Inhaled Oxygen Concentration - - Weight 69.4 kg (153 lb) 07/31/2024 1:31 PM CAM MAKER Height 185.4 cm (6' 1 ) 07/31/2024 1:31 PM CAM MAKER Body Mass Index 20.19 07/31/2024 1:31 PM CAM MAKER Plan of Treatment Health Maintenance Due Date Last Done Comments Depression Screening 1934 Fall Risk Assessment 1934 Hepatitis B Screening 1953 Well Visit 65+ 10/26/1999 Zoster Vaccine (2 of 3) 10/09/2008 08/14/2008 Covid-19 Vaccine (4 - 2023-2 5 season) 2024 05/26/2021, 08/26/2020, 08/05/2020 Influenza Vaccine (#1) 2024 , 04/15/2020, 05/16/2019, Additional history exists DTaP/Tdap/Td Vaccine (2 - Td or Tdap) 05/11/2025 05/11/2015, 03/28/2005 Pneumococcal vaccine 65+ Completed 017, 08/19/2015, 11/01/1999 Insurance COUNT INCLUDES [facility] MEDIC[facility] Care Teams Onyx Chip Terrazzo Worker Relationship Specialty Start Date End Date Rosette Ayala MD [address] [facility] [address] [place] [address] PCP - General Family Medicine 10/31/21
--- OUTSIDE RECORDS SUMMARY | 2024-08-21 00:12 | XMS_ITS | Encounter Summary ---
Author Organization [facility] Healthcare Address [address] [place] [id number] Care Team Providers Care Commodities Broker Name Role Phone Rosette Ayala MD Primary Care Provider Encounter Details Date Type Department Care Team (Late st Contact Info) Description 12/12/2023 Orders Only [facility] [place] Information Management [address] [place] [address] Scanning, Provider Social History Tobacco Use Types Packs/Day Years Used Date Smoking Tobacco: Never AUDIT-C Answer Date Recorded Q1: How often [...] as of this encounter Plan of Treatment Not on file documented as of this encounter Procedures Procedure Name Priority Date/Time Associated Diagnosis Comments CARDIOLOGY DOCUMENT SCAN 12/12/2023 SCAN - RADIOLOGY/IMAGING 12/11/2023 documented in this encounter Results * Cardiology Document Scan (12/12/2023) Anatomical Region Laterality Modality Other us Provider Scanning CV CARDIAC SERVICES PROCEDURES Final Result * SCAN - RADIOLOGY/IMAGING (12/11/2023) Anatomical Region Laterality Modality Other us Provider Scanning Edited Result - Final documented in this encounter Visit Diagnoses Not on filedocumented in this encounter Care Teams Commodities Broker Relationship Specialty Start Date End Date Rosette Ayala MD [address] [facility] [address] [place] [id number] PCP - General Family Medicine 10/31/21 documented as of this encounter
--- OUTSIDE RECORDS SUMMARY | 2024-08-21 00:13 | XMS_ITS | Clinical Summary ---
Author Organization [facility] Jaimee law Angelnicholearthur Address [address] [address] Care Team Providers Care Gps Field Data Collector Name Role Phone Rosette Ayala MD Primary Care Provider [phone]- [phone] Allergies Active Allergy Reactions Criticality Noted Date Comments Lisinopril Cough Low 06/20/2001 Prednisone Anxiety Low 01/07/2024 Medications diltiaZEM (CARDIZEM CD) 240 mg Controlled Delivery 24 hour capsule Take 240 mg by mouth daily. Active metoprolol tartrate (LOPRESSOR) 50 mg tablet Take 50 mg by mouth 2 times daily. Active cyanocobalamin 1,000 mcg Tablet Take 1,000 mcg by mouth daily. Active fish oil-omega-3 fatty acids 340-1,000 mg Capsule Take 1 Capsule by mouth daily. Active vits A,C,E/zinc/leah er (VISION-ESTELA PRESERVE ORAL) Take by mouth 2 times daily. Active azelastine (ASTELIN) 137 mcg/actuation nasal spray Administer 2 Sprays in each nostril 2 times daily. Active polysaccharide iron complex (FERREX 150,IFEREX 150) 150 mg iron capsule Take 150 mg by mouth 2 times daily. Active hydrALAZINE (APRESOLINE) 100 mg Tablet tablet Take 100 mg by mouth. Active albuterol sulfate HFA 90 mcg/actuation aerosol inhaler Take by inhalation. 4 Active cholecalciferol , Vitamin D3, 50 mcg (2,000 unit) Tablet Active ciprofloxacin HCl (CIPRO) 500 mg tablet Take 500 mg by mouth every 12 hours. 4 Active nitroglycerin (NITROSTAT) 0.4 mg Tablet, Sublingual Place 0.4 mg under tongue. 4 Active omeprazole (PriLOSEC) 40 mg Capsule, Delayed Release(E.C.) Take 40 mg by mouth daily. 4 Active Active Problems No known active problems Encounters Date Type Department Care Team Description 08/06/2024 External Device Data STL ABSTRACTION Provider, Abstract 08/06/2024 Orders Only [facility] Oncology [facility] Hematology [place] [address] [place] [address] Zeke Braden MD 08/05/2024 2:00 PM DIRECTOR SOCIAL SERVICE Office Visit [facility] Oncology and Hematology [place] [address] [place] [phone] Zeke Braden MD Pancytopenia (CMS/HCC) (Primary Dx) 08/05/2024 External Device Data STL ABSTRACTION Provider, Abstract 07/30/2024 Telephone [facility] Oncology [facility] Hematology [place] [address] [place] [phone] Zeke Braden MD Sooner Appt 07/29/2024 Orders Only [facility] Oncology and Hematology [facility] [address] [place] [phone] Zeke Braden MD Chronic anemia (Primary Dx) 07/24/2024 Telephone [facility] Oncology [facility] Hematology [facility] [address] [place] [phone] Zeke Braden MD Lab Results 07/23/2024 Abstract [facility] Oncology [facility] Hematology [place] [address] [place] [phone] Zeke Braden MD from Last 3 Months [...] at Not on file Legal Sex Male 11:54 AM CDT Gender Identity Not on file Sexual Orientation Not on file Last Filed Vital Signs Vital Sign Reading Time Taken Comments Blood Pressure 182/68 08/05/2024 2:11 PM DIRECTOR SOCIAL SERVICE Pulse 71 08/05/2024 2:11 PM DIRECTOR SOCIAL SERVICE Temperature 36.7 C (98 F) 08/05/2024 2:11 PM DIRECTOR SOCIAL SERVICE Respiratory Rate 16 08/05/2024 2:11 PM DIRECTOR SOCIAL SERVICE Oxygen Saturation 96% 08/05/2024 2:11 PM DIRECTOR SOCIAL SERVICE Inhaled Oxygen Concentration - - Weight 69.4 kg (153 lb) 08/05/2024 2:11 PM DIRECTOR SOCIAL SERVICE Height 185.4 cm (6' 1 ) 01/07/2024 10:35 AM CDT Body Mass Index 20.19 01/07/2024 10:35 AM CDT Plan of Treatment Upcoming Encounters Date Type Department Care Team (Late st Contact Info) Description 08/28/2024 11:30 AM DIRECTOR SOCIAL SERVICE Office Visit [facility] Oncology and Hematology - [place] [address] [place] [address] [facility] [address] [place] [address] Zeke Braden MD [address] [facility] [address] [place] [address] Health Maintenance Due Date Last Done Comments ZOSTER VACCINE (2 of 3) 10/09/2008 08/14/2008 RSV VACCINE (60+ or ) (1 - 1-dose 75+ series) 2009 INFLUENZA VACCINE (#1) 2024 8, 06/06/2017, 06/06/2016, Additional history exists Medicare [place] ([place]) Preventative Visit/Annual Wellness Visit 07/16/2024 DTAP/TDAP/TD VACCINES (2 - T d or Tdap) 05/11/2025 05/11/2015, 03/28/2005 PNEUMOCOCCAL VACCINE 65+ YEARS Completed 1 08/06/2016, 08/19/2015, 11/01/1999 Procedures Procedure Name Priority Date/Time Associated Diagnosis Comments COMPREHENSIVE METABOLIC PANEL Routine 08/05/2024 4:03 PM DIRECTOR SOCIAL SERVICE CBC WITH DIFFERENTIAL Routine 07/29/2024 3:02 PM DIRECTOR SOCIAL SERVICE from Last 3 Months Results * COMPREHENSIVE METABOLIC PANEL (08/05/2024 4:03 PM DIRECTOR SOCIAL SERVICE) Blood Zeke Braden MD CHEMISTRY ORDERABLES Final Resu lt * CBC WITH DIFFERENTIAL (07/29/2024 3:02 PM DIRECTOR SOCIAL SERVICE) Blood Zeke Braden MD HEMATOLOGY ORDERABLES Final Res ult from Last 3 Months Insurance AENA [id number] [facility] [place] Care Teams Gps Field Data Collector Relationship Specialty Start Date End Date Rosette Ayala MD [address] [facility] [address] [place] [phone] PCP - General Family Practice 12/31/23
--- OUTSIDE RECORDS SUMMARY | 2024-08-21 00:13 | XMS_ITS | Referral Summary ---
Author Organization [facility] [place] [address] [facility] [address] Address [address] [place] [address] Care Team Providers Care Health Commissioner Name Role Phone Rosette Ayala MD Primary Care Provider Encounters Date Type Department Care Team Description 07/31/2024 1:30 PM WAGON PERSON Office Visit [facility] Medical Group Cardiology [address] [facility] [place] [address] Louise Land MD Persistent atrial fibrillation (HCC) (Primary Dx); Paroxysmal SVT (supraventricular tachycardia) (HCC); Essential hypertension; Mixed hyperlipidemia; Aneurysm of ascending aorta without rupture (HCC); Shortness of breath from Last 3 Months Allergies Active Allergy Reactions Criticality Noted Date Comments Prednisone Rash Medium 03/07/2022 Medications vit C,E-Su-ijbos-l utein-zeaxan (PreserVision AREDS-2) 250-90-40-1 mg capsule Take 2 capsules by mouth daily Active omega 0-uyp-slg-fish oil 1,000 mg (120 mg-180 mg) capsule [...] total) by mouth daily 07/02/20 23 025 Discontinued(Th erapy completed) cyclobenzaprin e (FLEXERIL) 5 mg tablet Take 1 tablet (5 mg total) by mouth 3 (three) times a day as needed for muscle spasms 11/13/19 24 025 Discontinued(Th erapy completed) rosuvastatin (CRESTOR) 5 mg tablet Take 1 tablet (5 mg total) by mouth daily 30 tablet 11 01/25/20 24 025 Discontinued(Th erapy completed) ezetimibe (ZETIA) 10 mg tablet Take 1 tablet (10 mg total) by mouth daily 30 tablet 11 01/28/20 24 025 Discontinued( erapy completed) metoprolol (LOPRESSOR) 100 mg tablet TAKE 1 TABLET BY MOUTH TWICE A DAY 180 tablet 3 07/17/19 25 025 Discontinued Active Problems Problem Noted Date Diagnosed Date Persistent atrial fibrillation 01/25/2024 Hyperlipidemia 01/25/2024 Essential hypertension 03/07/2022 Paroxysmal SVT (supraventricular tachycardia) Nonsustained ventricular tachycardia 03/07/2022 Ascending aortic aneurysm 03/07/2022 Social History Tobacco Use Types Packs/Day Years [...] Comments Blood Pressure 160/50 07/31/2024 1:31 PM WAGON PERSON Pulse 67 07/31/2024 1:31 PM WAGON PERSON Temperature - - Respiratory Rate - - Oxygen Saturation 96% 07/31/2024 1:31 PM WAGON PERSON Inhaled Oxygen Concentration - - Weight 69.4 kg (153 lb) 07/31/2024 1:31 PM WAGON PERSON Height 185.4 cm (6' 1 ) 07/31/2024 1:31 PM WAGON PERSON Body Mass Index 20.19 07/31/2024 1:31 PM WAGON PERSON Plan of Treatment Not on file Insurance [employer] MEDICARE GOLD TNA MEDICARE GOLD Care Teams Health Commissioner Relationship Specialty Start Date End Date Rosette Ayala MD [address] [facility] [address] [place] [address] PCP - General Family Medicine 10/31/21
[2024-08-21 07:39] VITALS: BP 154/113; PULSE 70; TEMP 37; O2SAT 97
[2024-08-21 07:50] LABS: Basophils Percent Auto 0.4 % (0.2-1.2); Eosinophils Percent Auto 0.8 % (0-4.4); Hematocrit 23.5 % (42.0-52.0); Hemoglobin 7.7 g/dL (14.0-18.0); Immature Granulocyte Absolute 0.04 K/mm3 (0.00-0.031); Immature Granulocyte Percent A 1.6 % (0-0.5); Lymphocytes Absolute Auto 0.59 K/mm3 (0.9-3.2); Lymphocytes Percent Auto 24.3 % (18.3-44.2); Mean Corpuscular HGB Conc 32.8 g/dl (32-36); Mean Corpuscular Hemoglobin 30.3 pg (26-34); Mean Corpuscular Volume 92.5 fl (80-100); Mean Platelet Volume 9.8 fl (7.4-10.4); Monocytes Absolute Auto 0.1 K/mm3 (0.1-0.6); Monocytes Percent Auto 4.5 % (2.6-8.5); Neutrophils Absolute Auto 1.7 K/mm3 (1.3-6.7); Neutrophils Percent Auto 68.4 % (45.5-73.1); Platelet Count Result 120 k/mm3 (150-375); Red Blood Count 2.54 M/mm3 (4.6-6.20); Red Cell Distribution Width 14.6 % (11.5-14.5); White Blood Count 2.4 K/mm3 (4.5-10.0)
[2024-08-21 08:45] LABS: INR 1.1
--- NOTE | 2024-08-21 08:59 | WPDMODSED ---
Moderate Sedation Note-Pt Data Patient Data Diagnosis: Pancytopenia. Present Complaint: Pancytopenia. Procedure to be performed/Plan: Fluoro-guided bone marrow biopsy of ilium. Allergies Allergy/AdvReac Type Severity Reaction Status Date / Time prednisone AdvReac Severe tachycardia Verified 08/21/24 07:36 Home Medications ?Medication ?Instructions ?Recorded ?Confirmed ?Type cyanocobalamin (vitamin B-12) 1,000 mcg PO DAILY 10/31/21 08/21/24 History 1,000 mcg tablet (Vitamin B-12) omega-3 fatty acids 1,000 mg PO HS 10/31/21 08/21/24 History finasteride 5 mg tablet 5 mg PO DAILY #90 tabs 12/13/21 08/21/24 Rx vit C 250 mg-vit E 90 mg-zinc 40 1 tablet PO BID 02/12/23 08/21/24 History mg-copper 1 xd-iaohgo-ldeeun capsule (PreserVision AREDS-2) nitroglycerin 0.4 mg sublingual 0.4 mg sublingual Q5M PRN chest 10/04/23 08/20/24 Rx tablet pain #90 tabs azelastine 137 mcg (0.1 %) nasal 137 mcg (0.137 mL) intranasal Q12H 01/21/24 08/21/24 Rx spray #30 mL albuterol sulfate 90 mcg/actuation See Rx Instructions .Route 05/15/24 08/20/24 Rx aerosol inhaler .COMPLEX #9 grams polysaccharide iron complex 150 mg See Rx Instructions .Route 05/20/24 08/21/24 Rx iron capsule (Ferrex) .COMPLEX #180 caps hydralazine 100 mg tablet See Rx Instructions .Route 06/04/24 08/21/24 Rx .COMPLEX #180 tabs diltiazem HCl 240 mg 240 mg PO DAILY #90 caps 06/27/24 08/21/24 Rx capsule,extended release 24 hr metoprolol succinate 50 mg 50 mg PO DAILY #90 tabs 06/27/24 08/21/24 Rx tablet,extended release 24 hr omeprazole 40 mg capsule,delayed 40 mg PO DAILY #30 caps 07/14/24 08/21/24 Rx release Sedation/Anesthesia: No previous sedation/anesthesia problems (including family history). [facility] Past Medical History Medical History Iron deficiency anemia Hypertension Neurogenic bladder Anxiety Chronic obstructive pulmonary disease Benign prostatic hyperplasia Mesenteric artery stenosis Anemia Allergies Carotid artery bruit Surgical History Surgical History History of cataract surgery Family History Family History Sibling Diabetes mellitus Lupus Mother Colon cancer metastasized to brain Family history of malignant neoplasm Sibling Diabetes mellitus Scleroderma Sibling Diabetes mellitus Father Leukemia Social History Social History Social History: Healthcare power of commercial credit reviewer: Zahida Kruse, significant other. Code status: Full code. Smoking packs per day: 1 Smoking cigarettes per day: 20.0 Years smoked: 40 Smoking pack-years: 40.00 Smoking status: Former smoker Tobacco type: cigarettes Second hand tobacco smoke exposure: No Smoking end date: 07/16/00 Alcohol intake: never Substance use: never Substance use type: does not use Do You Feel Safe in your Home?: Yes Lack of Transportation: No Lack of Food: Never True Current Housing: I Have Housing Concerned About Future Housing: No Difficulty Paying Gas/Electric Bills: No Difficulty Paying for Meds: No Currently Unemployed: YES Education: Don't Know Difficulty w/ Childcare or Family Care: No Living arrangements: with family Occupation/Education: retired Additional occupation/education comments: 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 Former ([employer]); served with [employer]. Spiritual care concerns: No Agree to blood products: Yes Mod Sed Physical Exam Physical Exam Pre Procedural Exam: Normal: Appearance, Lungs, Heart Rate, Heart Rhythm and Abdomen Hours since solid foods: 2 Hours since liquid intake: 2 Mallampati Classification: class II Internal Medicine - PN: Obj Da Vital Signs Vital Signs: Vital Signs - 24 hr 08/21/24 07:39 Temperature 37.0 C Pulse Rate 70 Blood Pressure 154/113 H Pulse Oximetry 97 Oxygen Delivery Room Air Labs 08/21/24 07:43 Labs: Laboratory Results - last 24 hr 08/21/24 07:43 WBC 2.4 L RBC 2.54 L Hgb 7.7 L Hct 23.5 L MCV 92.5 MCH 30.3 MCHC 32.8 RDW 14.6 H Plt Count 120 L MPV 9.8 Immature Gran % (Auto) 1.6 H Neut % (Auto) 68.4 Lymph % (Auto) 24.3 [place] % (Auto) 4.5 Eos % (Auto) 0.8 Baso % (Auto) 0.4 Lymph # (Auto) 0.59 L [place] # (Auto) 0.1 Eos # (Auto) 0.0 Baso # (Auto) 0.0 Abs Immat Gran (auto) 0.04 H Absolute Neuts (auto) 1.7 Absolute Nucleated RBC 0.000 Nucleated RBC % 0.0 PT 15.0 H INR 1.1 ASA Classification/Sedation ASA Classification/Sedation ASA Class: II Emergent: No Risks: Risks, benefits and alternatives explained and patient/family accepted plan for sedation. Patient re-evaluated immediately prior to sedation.
[2024-08-21 09:45] VITALS: BP 152/58; PULSE 64; RESP 21; O2SAT 97
[2024-08-21 10:00] VITALS: BP 146/54; PULSE 63; RESP 20; O2SAT 97
[2024-08-21 10:15] VITALS: BP 154/52; PULSE 64; RESP 21; O2SAT 98
[2024-08-21 10:30] VITALS: BP 154/52; PULSE 64; RESP 21; TEMP 37; O2SAT 98
[2024-08-21 10:45] VITALS: BP 154/52; PULSE 64; RESP 21; TEMP 37; O2SAT 98
== END 2024-08-21 11:15 | disposition home or self-care (01) ==
PROVIDERS: PCP Family Medicine; Visit Provider Radiology Diagnostic Radiology
DX: D61.818 Other pancytopenia (principal); I10 Essential (primary) hypertension; D50.9 Iron deficiency anemia, unspecified; J44.9 Chronic obstructive pulmonary disease, unspecified; N40.0 Benign prostatic hyperplasia without lower urinary tract symptoms; N31.9 Neuromuscular dysfunction of bladder, unspecified; R09.89 Other specified symptoms and signs involving the circulatory and respiratory systems; Z87.891 Personal history of nicotine dependence
CPT/HCPCS: 36415; 38222; 85025; 85610; 88305; 88311; 88313; J2250; J3010; J7040

== ENCOUNTER 2024-09-11 13:20 | Outpatient (CLI) | payer MEDICARE, SELFPAY ==
[2024-09-11 16:44] LABS: Add Urine Microscopic? YES; Amorphous Sediment Urine Few; Appearance Urine Cloudy (Clear); Bacteria Urine 4+ /hpf; Bilirubin Urine Negative (Negative); Blood Urine 2+ (Negative); Color Urine Yellow (Yellow); Glucose Urine UA Negative (Negative); Ketones Urine Negative (Negative); Leukocyte Esterase Ur 3+ LEU/UL (Negative); Need Manual Microscopic Reviewed; Nitrate Urine Negative (Negative); Protein Urine 2+ mg/dL (Negative); RBC Urine 0-2 /hpf (0-2); Specific Grav Ur 1.011 (1.001-1.035); Squamous Epithelial Cell Urine Occasional /hpf (Few); Urobilinogen Urine 0.2 mg/dL (<2.0); WBC Clumps Urine Present /HPF; WBC Urine 51-100 /hpf (0-3); pH Urine 5.5 (5.0-9.0)
== END 2024-09-11 13:21 | disposition home or self-care (01) ==
LOC: ANHLAB 13:24
PROVIDERS: Physician Assistant; PCP Family Medicine; Visit Provider Family Medicine
DX: R63.1 Polydipsia (principal); R30.0 Dysuria; R53.83 Other fatigue
CPT/HCPCS: 81001; 87077; 87086; 87186